=== PATIENT | female | born 1985 | race Caucasian/White ===

== ENCOUNTER 2017-05-18 19:44 | Inpatient (IN) | payer MEDICAID, SELFPAY ==
[2017-05-18 19:45] VITALS: BP 124/94; PULSE 121; RESP 18; TEMP 37.1; O2SAT 98; BMI 28.4
--- NOTE | 2017-05-18 20:49 | NURSING ---
PT WILL BE ADMITTED UNDER THE [facility] FOR DETOX
--- NOTE | 2017-05-18 20:51 | ED.DCSUM_ITS ---
- ER Visit Summary Date of Service: 05/18/17 Chief Complaint: History of alcoholism requesting detox History of Present Illness: The patient is a 32 F 3 of alcohol abuse and prior heroin abuse. States she was detoxed in [place] a year ago and has been clean from heroin since that time. She drinks normally about 1/5 of vodka a day. And wants to get clean. She denies any melena. She denies any fever. Physical Examination: Well-appearing young female. Vital signs are stable she is tachycardic heart rate about 121. H EENT exam unremarkable. Neck nontender no lymphadenopathy. Lungs clear to auscultation bilaterally. Heart tachycardic no murmur rate about 120. Abdomen is soft nontender. Nondistended normal bowel sounds no peritoneal signs. No organomegaly or masses. She is moving all 4 extremities. Neurovascular intact. Back nontender. Neurologically she is awake and alert without focal motor deficits. Test Results: [] Emergency Department Course and Treatment: Patient requesting detox. Screening labs be obtained. I have the hospitalist on page for admission. Treatment Plan: [] Disposition: Admission for detox Impression: History of alcoholism requesting detox Prior history of heroin abuse This note was generated with Android [employer] dictation software. It may contain incorrect words, spelling, and punctuation that were not noted in review of the chart prior to signing ED Disposition - Plan for ED Patient: Chief Complaint: Subst Abuse Referrals: NOT,DEFINED [Primary Care Provider] -
--- NOTE | 2017-05-18 21:11 | PCM.HP.STD ---
Problem List (1) Alcohol abuse Status: Acute (2) Opiate addiction Status: Chronic History of Present Illness Date of Admission: 05/18/17 Chief Complaint: wants to be sober The patient is a 32 year old female patient with chronic alcohol addiction presents to the ER to get sober from alcohol. She last drank 4 hours ago and says she continues to drink to avoid getting the shakes. She admits to heavy drinking for the past nine months. She is also on 1 mg Suboxone from her primary doctor. She is agitated but says she wants to be free from her alcohol addiction. No chest pain or shortness of breath. Past Medical History Past Medical History (Chronic Problems): Chronic Problems Opiate addiction (Chronic) Allergies amoxicillin Allergy (Verified 05/18/17 19:48) Rash Home Medications: Ambulatory Orders Medication Instructions Recorded Buprenorphine HCl/Naloxone HCl 1 each SL QODAY 05/18/17 [Buprenorphin-Naloxon 8-2 mg Sl] Clonidine HCl 0.2 mg PO Q8 05/18/17 Famotidine 20 mg PO BID 05/18/17 Smoking Status: Current every day smoker - *Family History Maternal History Items: No pertinent history Review of Systems Constitutional: Denies: Chills, Fever, Weight Change HEENT: Denies: Head Aches, Sinus Congestion, Sinus Drainage Cardiovascular: Denies: Chest Pain, Palpitations Respiratory: Denies: Cough, Shortness of breath at rest, Sputum production Gastrointestinal: Denies: Abdominal Pain, Nausea, Vomiting Genitourinary: Denies: Dysuria Musculoskeletal: Denies: Joint Pain, Joint Tenderness Skin: Denies: Rash, Wounds Neurological: Denies: Numbness, Tingling, Focal weakness Psychiatric: Reports: Anxiety. Denies: Depression, Homicidal Ideations, Suicidal Ideations Hematologic/ Lymphatic: Denies: Easy Bruising, Easy Bleeding VTE Information - Inpt Only VTE Present on Admission: No VTE Mechan Device Prophylaxis: None VTE Pharm Prophylaxis ordered?: No Patient Problems: Active and Suspected Problems Alcohol abuse (Acute) - Physical Exam General: Alert, Oriented x3, Cooperative HEENT: Atraumatic, Normocephalic Neck: Supple Lungs: Clear to auscultation, Normal air movement Cardiovascular: Regular rate, No murmurs Abdomen: Bowel Sounds Present, Soft, Non Tender Extremities: No edema, Capillary Refill Less than 3 Seconds Skin: No rashes, No breakdown Musculoskeletal: No Tenderness to Palpation of Joints or Extremities Neurological: Neuro grossly intact Psych/Mental Status: Appropriate, Anxious Vital Signs Temp Pulse Resp BP Pulse Ox 98.7 F 121 H 18 124/94 H 98 05/18/17 19:45 05/18/17 19:45 05/18/17 19:45 05/18/17 19:45 05/18/17 19:45 Weight: 160 lb 11.472 oz Body Mass Index (BMI) 28.4 Assessment/Plan Active and Suspected Problems Alcohol abuse (Acute) Chronic conditions - history of opiate addiction Plan - enter [facility] program - CIWA protocol - labs pending at admission - consult [facility] - continue routine home medications Code Visit Inpatient E&M: 96745 Init Hosp L3
[2017-05-18 21:19] LABS: Absolute Lymphocyte Count 3.43 X10^3/ul (0.83-4.51); Absolute Neutrophil Count 3.1 X10^3/uL (2.0-7.7); Basophil# 0.02 X10^3/uL; Basophil% 0.3 % (0-1); Eosinophil# 0.06 X10^3/uL; Eosinophils% 0.8 % (0-5); Hemoglobin 15.4 g/dl (12.0-15.0); Lymphocyte # 3.43 X10^3/ul (4.0); Lymphocyte % 46.5 % (19-41); Mean Corp Hgb Conc 33.5 g/gl (32-36); Mean Corpuscular Hgb 33.4 pg (27.0-32.0); Mean Corpuscular Volume 99.8 fL (81-99); Mean Platelet Vol. 8.5 fl (6.2-12.0); Monocyte# 0.68 X10^3/uL; Monocyte% 9.2 % (0-10); Neutrophil # 3.14 X10^3/uL (2.7-7.7); Neutrophil % 42.7 % (47-70); POSITIVE COUNT NO; POSITIVE DIFFERENTIAL NO; POSITIVE MORPHOLOGY NO; Platelet Count 274 K/mm3 (150-450); RBC Distribution Width CV 13.6 % (11.6-14.6); RBC Distribution Width SD 49.6 fl (35.1-43.9); Red Blood Count 4.61 M/mm3 (4.2-5.4); White Blood Count 7.4 K/mm3 (4.4-11.0)
[2017-05-18 21:23] VITALS: BP 119/84; PULSE 109; RESP 20; O2SAT 97
[2017-05-18 21:38] LABS: AST(SGOT) 162 U/L (15-37); Alanine Aminotransfer ALT/SGPT 138 U/L (13-56); Albumin, Serum 3.9 g/dL (3.2-5.0); Alkaline Phosphatase 103 U/L (45-117); Anion Gap 6 (5-15); BUN 5 mg/dL (7-18); BUN/Creat Ratio 7.7 RATIO (10-20); Bilirubin, Direct 0.12 mg/dL (0.00-0.30); Calcium,Total 8.5 mg/dL (8.5-10.1); Chloride 109 mmol/L (98-107); Creatinine, Serum 0.65 mg/dL (0.55-1.02); EST Glomerular Filtration Rate 113 mL/min (>60); Est Glom Filt Rate - Afr Amer 137 mL/min (>60); Estimated Creatinine Clearance 102.78 ml/min; Glucose 88 mg/dL (74-106); Potassium 3.7 mmol/L (3.5-5.1); Protein, Total 7.9 g/dL (6.4-8.2); Sodium Level 144 mmol/L (136-145)
[2017-05-18 21:53] VITALS: BMI 27.3
[2017-05-18 22:07] VITALS: BP 120/86; PULSE 66; RESP 18; TEMP 36.2; O2SAT 95
[2017-05-18] MEDS: cloNIDine HCl 0.2 MG Tablet PO (22:41)
[2017-05-18] MEDS: Famotidine 20 MG Tablet PO (22:42)
[2017-05-19] VITALS (10 sets, daily range): BP systolic 104–122; BP diastolic 61–85; PULSE 70–110; RESP 16–18; TEMP 36.6–37.3; O2SAT 97–100
[2017-05-19] MEDS: LORazepam 1 MG Tablet 2 MG PO (05:56)
[2017-05-19] MEDS: cloNIDine HCl 0.2 MG Tablet PO ×3 (05:56→22:06)
[2017-05-19] MEDS: Thiamine Hydrochloride 100 MG Tablet PO ×2 (07:53→17:43)
[2017-05-19] MEDS: Folic Acid 1 MG Tablet PO (07:53)
[2017-05-19 08:29] LABS: Amphetamine Urine VISTA NEGATIVE (<1000 ng/mL); Barbiturate Urine VISTA NEGATIVE (< 200 ng/mL); Benzodiazepine Urine VISTA NEGATIVE (< 200 ng/mL); Cocaine Urine VISTA NEGATIVE (< 300 ng/mL); Ecstacy Urine VISTA NEGATIVE (< 500 ng/mL); Methadone Urine VISTA NEGATIVE (< 300 ng/mL); PCP Urine VISTA NEGATIVE (< 25 ng/mL); THC Urine VISTA NEGATIVE (< 50 ng/mL); Vista UDS pH Range 6
--- NOTE | 2017-05-19 08:53 | CASEMGMT ---
Social Work Note Consult from physician for [facility] to follow. Placed call to Gisselle with [facility] who confirms that she will be meeting with the pt this date. Will notify SW if there are any additional needs. Will continue to follow and assist as needed. Plan: [facility] Elsa Ceja, CERTIFIED TOWER CLIMBER, BUN MACHINE OPERATOR
[2017-05-19] MEDS: Enoxaparin 40 MG/0.4 ML Syringe SC (09:55)
[2017-05-19] MEDS: Famotidine 20 MG Tablet PO ×2 (09:55→22:06)
--- NOTE | 2017-05-19 12:58 | PN_ITS ---
Patient Problems: Active and Suspected Problems Alcohol abuse (Acute) Subjective: CC: alcohol withdrawal Patient presented asking to be detoxed from alcohol. she Currently has symptom complex of alcohol withdrawal. Vitals/I&O's: Vital Signs Temp Pulse Resp BP Pulse Ox 99.2 F H 110 H 18 122/85 H 100 05/19/17 10:00 05/19/17 10:00 05/19/17 10:00 05/19/17 10:00 05/19/17 07:44 Oxygen Delivery Method Room Air Weight: 70 kg Body Mass Index (BMI) 27.3 General: Alert, Oriented x3 Oral: Moist Mucosa Neck: Supple Lungs: Clear to auscultation Cardiovascular: Regular rate, Normal S1, Normal S2 Abdomen: Bowel Sounds Present, Soft, Non Tender Neurological: Cranial nerves II-XII grossly intact, Facial Droop Laboratory Results 05/19/17 07:50: Urine Opiates Screen NEGATIVE, Urine Methadone Screen NEGATIVE, Ur Barbiturates Screen NEGATIVE, Ur Phencyclidine Scrn NEGATIVE, Ur Amphetamines Screen NEGATIVE, U Methamphetamin-MDMA NEGATIVE, U Benzodiazepines Scrn NEGATIVE, Urine Cocaine Screen NEGATIVE, U Cannabinoids Screen NEGATIVE, Ur Drug Screen Comment Current Medications Buprenorphine HCl (Buprenorphn-Naloxn 2-0.5 Mg Sl) 0.5 each SL DAILY PRN PRN Clonidine (Catapres) 0.2 mg PO Q8 [facility] Last Admin: 05/19/17 05:56 Dose: 0.2 mg Enoxaparin Sodium (Lovenox) 40 mg SC DAILY@1000 [facility] Last Admin: 05/19/17 09:55 Dose: 40 mg Famotidine (Pepcid) 20 mg PO BID [facility] Last Admin: 05/19/17 09:55 Dose: 20 mg Folic Acid (Folic Acid) 1 mg PO DAILY@0800 [facility] Stop: 05/21/17 08:01 Last Admin: 05/19/17 07:53 Dose: 1 mg Lorazepam (Ativan) 2 mg PO Q2H PRN PRN; Protocol PRN Reason: CIWA score > 8 but <15 Last Admin: 05/19/17 05:56 Dose: 2 mg Lorazepam (Ativan) 2 mg IV Q2H PRN PRN; Protocol PRN Reason: CIWA score > 8 but <15 Lorazepam (Ativan) 2 mg PO UD PRN; Protocol PRN Reason: CIWA score >/=15. Lorazepam (Ativan) 2 mg IV UD PRN; Protocol PRN Reason: CIWA score >/=15. Magnesium Hydroxide (Milk Of Magnesia) 30 ml PO DAILY PRN PRN PRN Reason: Constipation Thiamine HCl (Vitamin B1) 100 mg PO BIDCM [facility] Stop: 05/21/17 17:01 Last Admin: 05/19/17 07:53 Dose: 100 mg Assessment/Plan Active and Suspected Problems Alcohol abuse (Acute) 1. Acute alcohol withdrawal; the patient will be placed on the [facility] medical stabilization protocol. We will continue to monitor her closely. 2. Alcohol use disorder; the patient is recommended to follow-up for alcohol alcohol rehabilitation program after discharge. 3. history of opiate use disorder; he is recommended to stay away from illicit drugs. 4. DVT Prophylaxis with Lovenox. Code Visit Inpatient E&M: 52312 [facility] Hosp L3
--- NOTE | 2017-05-19 16:30 | CHAPLAIN ---
Type of Pastoral Visit _x__ Initial Visit ___ Follow-up Visit ___ On-call Visit ___ General Patient Visit ___ Spiritual Assessment ___ Family Conference ___ Bereavement ___ Rapid Response ___ Code Blue ___ Other (describe below) Pastoral Care Referral From _x__ Patient ___ Family ___ Nurse ___ Physician ___ Classroom Coordinator ___ Ct Manager ___ Other (describe below) Sacrament/Intervention _x__ Active listening ___ Anointing ___ Sabianism ___ Bereavement ___ Communion ___ Betty exploration ___ _x__ Life review _x__ Prayer ___ Reconciliation ___ Sacrament of Sick _x__ Supportive presence ___ Wedding ___ Other (describe below) Pastoral Comments patient discusses the policy of not leaving the hospital; pt says that she wants to have her 6 month old baby see her now but doesn't want to go to lobby to do it; pt says she needs fresh air and a smoke; we talk about what she can do and how she can focus on the residential; offer to get her reading material and coloring pages; pt agrees that this would be a good idea; pt accepts a prayer; pt has had no mandaeism connection in last 25 years; returned to room with coloring pages and reading
--- NOTE | 2017-05-19 19:45 | NURSING ---
Pt refusing to wear tele. Will make MD aware.
--- NOTE | 2017-05-19 19:47 | NURSING ---
pt refused tele primary rn aware & notified
[2017-05-19] MEDS: QUEtiapine 25 MG Tablet PO (22:06)
[2017-05-20 04:57] VITALS: BP 104/66; PULSE 46; RESP 16; TEMP 36.5; O2SAT 100
[2017-05-20 05:00] VITALS: BP 104/66; PULSE 46; RESP 16; TEMP 36.5
[2017-05-20] MEDS: cloNIDine HCl 0.2 MG Tablet PO (05:19)
[2017-05-20 05:20] VITALS: PULSE 72
[2017-05-20] MEDS: Folic Acid 1 MG Tablet PO (08:56)
[2017-05-20] MEDS: Thiamine Hydrochloride 100 MG Tablet PO (08:57)
--- NOTE | 2017-05-20 09:32 | PCM.PN.HOSP ---
Patient Problems: Active and Suspected Problems Alcohol abuse (Acute) Subjective: CC: Follow-up on alcohol withdrawal She reports improved symptoms with the [facility] medical stabilization protocol. No acute events reported overnight. Vitals/I&O's: Vital Signs Temp Pulse Resp BP Pulse Ox 97.7 F L 72 16 104/66 100 05/20/17 05:00 05/20/17 05:20 05/20/17 05:00 05/20/17 05:00 05/20/17 04:57 Oxygen Delivery Method Room Air Weight: 70 kg Body Mass Index (BMI) 27.3 Intake and Output for Last 24 Hours 05/18/17 05/19/17 05/20/17 23:59 23:59 23:59 Intake Total 860 / 860 1000 / 1000 Balance 860 / 860 1000 / 1000 General: Alert, Oriented x3 HEENT: Atraumatic Neck: Supple, No JVD, Negative Carotid Bruits Lungs: Clear to auscultation, No wheeze Cardiovascular: Normal S1, Normal S2 Abdomen: Bowel Sounds Present Extremities: No clubbing, No edema Neurological: Cranial nerves II-XII grossly intact, Slurred Speech Current Medications Buprenorphine HCl (Buprenorphn-Naloxn 2-0.5 Mg Sl) 0.5 each SL DAILY PRN PRN Clonidine (Catapres) 0.2 mg PO Q8 [facility] Last Admin: 05/20/17 05:19 Dose: 0.2 mg Dicyclomine HCl (Bentyl) 20 mg PO Q6H PRN PRN PRN Reason: abdominal discomfort Enoxaparin Sodium (Lovenox) 40 mg SC DAILY@1000 [facility] Last Admin: 05/19/17 09:55 Dose: 40 mg Famotidine (Pepcid) 20 mg PO BID [facility] Last Admin: 05/19/17 22:06 Dose: 20 mg Folic Acid (Folic Acid) 1 mg PO DAILY@0800 [facility] Stop: 05/21/17 08:01 Last Admin: 05/20/17 08:56 Dose: 1 mg Hydroxyzine Pamoate (Vistaril) 50 mg PO Q6H PRN PRN PRN Reason: Mild Anxiety (score 1/3) Last Admin: 05/20/17 05:18 Dose: 50 mg Lorazepam (Ativan) 2 mg PO Q2H PRN PRN; Protocol PRN Reason: CIWA score > 8 but <15 Last Admin: 05/19/17 05:56 Dose: 2 mg Lorazepam (Ativan) 2 mg IV Q2H PRN PRN; Protocol PRN Reason: CIWA score > 8 but <15 Lorazepam (Ativan) 2 mg PO UD PRN; Protocol PRN Reason: CIWA score >/=15. Lorazepam (Ativan) 2 mg IV UD PRN; Protocol PRN Reason: CIWA score >/=15. Magnesium Hydroxide (Milk Of Magnesia) 30 ml PO DAILY PRN PRN PRN Reason: Constipation Methocarbamol (Methocarbamol) 750 mg PO Q6H PRN PRN PRN Reason: Muscle Aches Pramipexole Dihydrochloride (Mirapex) 0.25 mg PO Q12H PRN PRN PRN Reason: Restless legs Quetiapine Fumarate (Seroquel) 25 mg PO Q6H PRN PRN PRN Reason: Moderate Anxiety (score 2/3) Last Admin: 05/19/17 22:06 Dose: 25 mg Thiamine HCl (Vitamin B1) 100 mg PO BIDCM [facility] Stop: 05/21/17 17:01 Last Admin: 05/20/17 08:57 Dose: 100 mg Assessment/Plan Active and Suspected Problems Alcohol abuse (Acute) 1. Acute alcohol withdrawal; we will continue on the [facility] medical stabilization protocol. We will continue to monitor her closely. 2. Alcohol use disorder; the patient is recommended to follow-up for alcohol alcohol rehabilitation program after discharge. 3. history of opiate use disorder; he is recommended to stay away from illicit drugs. 4. DVT Prophylaxis with Lovenox. Code Visit Inpatient E&M: 77909 Subs Hosp L2
[2017-05-20 10:00] VITALS: BP 108/71; PULSE 60; RESP 18; TEMP 36.7
[2017-05-20] MEDS: LORazepam 1 MG Tablet 2 MG PO (10:21)
[2017-05-20] MEDS: Enoxaparin 40 MG/0.4 ML Syringe SC (10:22)
[2017-05-20] MEDS: Famotidine 20 MG Tablet PO (10:22)
--- NOTE | 2017-05-20 13:39 | PCM.DC.SUM ---
Discharge Date and Diagnosis - Problem List Patient Problems: Active and Suspected Problems Alcohol abuse (Acute) Date of Admission: 05/18/17 Date of Discharge: 05/20/17 - Primary Discharge Diagnosis Active and Suspected Problems Alcohol abuse (Acute) - Secondary Discharge Diagnosis Chronic Problems Opiate addiction (Chronic) Hospital Course and Treatment Summary of Care Provided: This is a 32 year old female patient with chronic alcohol addiction presents to the ED to get detoxed from alcohol. She last drank 4 hours ago emergency room . Was admitted to the hospital and placed on the medical stabilization protocol for alcohol withdrawal. She later decided AGAINST MEDICAL ADVICE and left the hospital. Discharge Diet: No Restrictions Home Medications: Medications to take at Discharge Buprenorphine HCl/Naloxone HCl [Buprenorphin-Naloxon 8-2 mg Sl] 0.5 mg SL DAILY PRN PRN 05/18/17 Clonidine HCl 0.2 mg PO Q8 05/18/17 Famotidine 20 mg PO BID 05/18/17 Primary Care Physician: NOT,DEFINED [NON-STAFF] - Disposition: Home Meaningful Use Info Meaningful Use Diagnoses (Choose all that apply): None applicable Code Visit Inpatient E&M: 17564 Disch Hosp
== END 2017-05-20 14:00 | disposition left against medical advice (07) | DRG 433 ==
LOC: ED 20:59 → MS2 21:25
PROVIDERS: Admitting Provider Family Medicine; Emergency Provider Emergency Medicine; Visit Provider Internal Medicine
DX: F10.239 Alcohol dependence with withdrawal, unspecified (principal); F11.11 Opioid abuse, in remission; F17.200 Nicotine dependence, unspecified, uncomplicated
CPT/HCPCS: 80048; 80076; 80307; 80320; 85025; 97802; 99283; G0480

== ENCOUNTER 2017-06-27 13:27 | Emergency (ER) | payer MEDICAID, SELFPAY ==
[2017-06-27 13:29] VITALS: BP 142/98; PULSE 120; RESP 18; TEMP 36.7; O2SAT 98; BMI 26.4
--- NOTE | 2017-06-27 14:10 | ED.DCSUM_ITS ---
- ER Visit Summary Date of Service: 06/27/17 Chief Complaint: [] Anxiety requesting alcohol detox History of Present Illness: The patient is a 32 F [] history of anxiety, alcohol abuse, currently on Suboxone for heroin nasal inhalation abuse no history of IV drug abuse she indicates she drinks about 1/5 of whiskey a day she has a 2-month-old child with and her she is with no complication from the she basically indicates she was detoxed about 2 months ago at [facility] she remained sober for 2 days, she is currently seeing a counselor for Suboxone therapy was also managing her anxiety with klonidine and then that was stopped, she still on the Suboxone, she indicates she believes she drinks because she becomes very anxious she has not seen a specialist specialist psychiatrist counselor for the anxiety or alcohol abuse as an outpatient Alcohol and tox was about 2 hours ago she is not in withdrawal she has no complaints of head neck chest or abdominal pain no irritability palpitations headache her CIWA screening score is negative except for her chronic anxiety. She is eating and drinking without difficulty there is no reported suicidal ideation Physical Examination: [] No distress she admits to being anxious her HEENT exams unremarkable head neck unremarkable nose and throat are normal neck supple lungs clear abdomen soft nontender upper lower extremities unremarkable neurologically awake alert moving all 4 no tremor normal mental status no clouding of memory or judgment, no signs of psychomotor agitation or withdrawal Test Results: [] Emergency Department Course and Treatment: [] In all the above to her and her we did do the CIWA screening score and again she was negative for all except for the anxiety I explained her that she does not meet criteria for admission based on the current treatment protocol here at the hospital, did not follow-up for outpatient detox with 180 or the counseling center I provided her with those phone numbers asked her to call them for continued options related to her detox to call the counseling center at the hospital on Thursday morning and return for change in symptoms Treatment Plan: [] Disposition: [] Home stable Impression: [] History of alcohol abuse, history of narcotic addiction heroin currently on Suboxone history of anxiety This note was generated with [employer] software. It may contain incorrect words, spelling, and punctuation that were not noted in review of the chart prior to signing ED Disposition - Plan for ED Patient: Chief Complaint: Subst Abuse Referrals: Care Physician,No Primary [Primary Care Provider] -
--- NOTE | 2017-06-27 14:10 | ED.DEP ---
ED Disposition - Plan for ED Patient: Chief Complaint: Subst Abuse Instructions: ED Drug Abuse General, ED Alcohol Intoxication Referrals: Care Physician,No Primary [Primary Care Provider] -
== END 2017-06-27 14:40 | disposition home or self-care (01) ==
PROVIDERS: Emergency Provider Emergency Medicine
DX: F10.10 Alcohol abuse, uncomplicated (principal); Y90.9 Presence of alcohol in blood, level not specified; F41.9 Anxiety disorder, unspecified; F11.21 Opioid dependence, in remission
CPT/HCPCS: 99282

== ENCOUNTER 2017-12-18 11:56 | Inpatient (IN) | payer MEDICAID, SELFPAY ==
[2017-12-18] VITALS (7 sets, daily range): BP systolic 108–125; BP diastolic 74–80; PULSE 81–101; RESP 14–16; TEMP 36.7–37; O2SAT 98; BMI 28.6
--- NOTE | 2017-12-18 12:00 | HP.PCM_ITS ---
Problem List (1) Alcohol withdrawal Status: Acute Qualifiers: Complication of substance-induced condition: with unspecified complication Qualified Code(s): F10.239 - Alcohol dependence with withdrawal, unspecified (2) History of heroin abuse Status: Chronic (3) Tobacco use Status: Chronic (4) Anxiety and depression Status: Chronic History of Present Illness Date of Admission: 12/18/17 Chief Complaint: Acute EtOH withdrawal The patient is a 32 y/o F w/ PMHx: Tobacco Use, History of Heroin Abuse clean x 2 years, previously on Suboxone therapy while but off since her child 3 months old without issue she notes, Untreated anxiety and depression, EtOH Abuse with daily 1.5 750 ml vodka bottle daily who presents to the [facility] per [facility] w/ noted acute EtOH withdrawal, onset starting this afternoon following last EtOH intake ~ 9:30 am with onset of nausea, tremors, agitation, tactile disturbances. She notes that she has been decreasing her intake recently and notes possibly having seizure ~ 2 days prior. Patient interested in attaining sober status. She was in rehab prior and had left AMA during that prior admission. She has a nearing 1 year old daughter who is currently with her grandparents who she notes are sober x 7 years each and is very eager to attain sober status herself. She does not have a mentor/AA sponsor. She admits to anxiety as the reason for her EtOH intake. Past Medical History Past Medical History (Chronic Problems): Chronic Problems Opiate addiction (Chronic) History of heroin abuse (Chronic) Tobacco use (Chronic) Anxiety and depression (Chronic) Allergies amoxicillin Allergy (Verified 06/27/17 13:28) Rash Home Medications: Ambulatory Orders Medication Instructions Recorded Clonidine HCl [Catapres] 0.2 mg PO TID 12/18/17 Surgical History: tonsillectomy Psychiatric History: Anxiety, Depression WIG SALES CONSULTANT History: No pertinent WIG SALES CONSULTANT history Lives: Alone - Lives with her 1 year old daughter. Does have father of child who is in care home parents assistance who are both clean/sober status x 7 years., Friends - 10 cigarette/day. Smoking Status: Current every day smoker Tobacco Use: Cigarettes Alcohol: Heavy - 1.5 750 ml vodka per day. Drugs: - - Clean status x 2 years, prior heroin usage. - *Family History Maternal History Items: - - Notes was mother was an EtOH, . Paternal History Items: No pertinent history Review of Systems Constitutional: Reports: Anorexia, Malaise, Weakness, Fatigue. Denies: Chills, Fever, Weight Change HEENT: Denies: Head Aches, Sinus Congestion, Sinus Drainage Cardiovascular: Denies: Chest Pain, Palpitations Respiratory: Denies: Cough, Shortness of breath at rest, Sputum production Gastrointestinal: Reports: Nausea. Denies: Abdominal Pain, Vomiting Genitourinary: Denies: Dysuria Musculoskeletal: Denies: Joint Pain, Joint Tenderness Skin: Denies: Rash, Wounds Neurological: Reports: Tremor, Seizures. Denies: Focal weakness, Numbness, Tingling Psychiatric: Reports: Anxiety, Depression. Denies: Homicidal Ideations, Suicidal Ideations Hematologic/ Lymphatic: Denies: Easy Bruising, Easy Bleeding VTE Information - Inpt Only VTE Present on Admission: No VTE Mechan Device Prophylaxis: SCD's VTE Pharm Prophylaxis ordered?: Yes Patient Problems: Active and Suspected Problems Alcohol withdrawal (Acute) Subjective: Seated upright in the bed, fatigued appearance, notes symptoms improved since initial dose librium. Objective: Physical Examination: General: awake, alert, oriented x 3 and cooperative, seated upright in bed, fatigued appearance, tremors improved w/ librium. Skin: normal color, turgor, no icterus, cyanosis. HEENT: AT/NC, EOMI, PERRLA, moderately dry MM, no carotid bruits or JVD noted. Lungs: CTA bilaterally, moderate effort, mild decrease BL bases, no rales, ronchi or wheezing. Heart: Regular rate and rhythm; no gallop, rub audible. Abdomen: soft, NTTP, ND, normal BS, no HSM. Extremities: no cyanosis, clubbing, or edema. Neurological: patient awake, alert, oriented x 3; cognitive function intact; pupils equally reactive to light and accomodation; cranial nerves II-XII grossly normal, moving all 4 extremities, no focal deficits, strength moderately globally decreased secondary to acute presentation, tremors improved. Psychiatric: affect appears fatigued, mildly flat, no acute evidence of depressive or anxiety feelings but does state underlying history and interest in treatment. Assessment/Plan All Active Problems Alcohol abuse (Acute) Alcohol withdrawal (Acute) The patient is a 32 y/o F w/ PMHx: Tobacco Use, History of Heroin Abuse clean x 2 years, previously on Suboxone therapy while but off since her child 3 months old without issue she notes, Untreated anxiety and depression, EtOH Abuse with daily 1.5 750 ml vodka bottle daily who presents to the [facility] per [facility] w/ noted acute EtOH withdrawal. (1) Acute EtOH Withdrawal w/ Possible DT: Will admit to MS, seizure precautions given possible DT history w/ recent decreased EtOH, obtain routine labs including CBC, CMP, urine for drug screen, serum lipase, testing, initiate and continue on [facility] service protocol with taper course of librium, as needed Seroquel, Catapres, Bentyl, Vistaril, IV fluids, IV antiemetics, Tylenol as needed for pain. Once patient clinically improved and completion of taper nearing will plan [facility] assistance for transition to next level of rehabilitation care. Mag, phos pending. Maintain on CIWA protocol. (2) Anxiety and Depression, Untreated: Reviewed options with patient and given her interest and large component for her EtOH abuse will start low dose sertraline with planned taper after 1 week and further alterations with PCP pending response. Discussed timeline of response with patient. She understands possible side effects but still prefers to start in her current setting. Discussed with CM/SW and requested they obtain information for PCPs in her area to assist in successful outcome. (3) History of Heroin Abuse: Clean x 2 years, notes recent HIV and hepatitis testing w/ of child, negative. Encouraged continued clean status. Previously on suboxone therapy, off now since child ~ 3 months old. (4) Tobacco Abuse: Encouraged cessation, inpatient consultation per RT, NR if desired. (5) DVT Prophylaxis: SCDs, lovenox. Code Visit Inpatient E&M: 86914 Init Hosp L3
--- NOTE | 2017-12-18 12:41 | NURSING ---
pt refused ensure-- clinical data coordinator present
[2017-12-18 12:44] LABS: Absolute Lymphocyte Count 2.33 X10^3/ul (0.83-4.51); Absolute Neutrophil Count 4.9 X10^3/uL (2.0-7.7); Basophil# 0.02 X10^3/uL; Basophil% 0.3 % (0-1); Eosinophil# 0.03 X10^3/uL; Eosinophils% 0.4 % (0-5); Hematocrit 43.6 % (37-47); Hemoglobin 15.4 g/dl (12.0-15.0); Lymphocyte # 2.33 X10^3/ul (4.0); Lymphocyte % 29.8 % (19-41); Mean Corp Hgb Conc 35.3 g/gl (32-36); Mean Corpuscular Hgb 32.7 pg (27.0-32.0); Mean Corpuscular Volume 92.6 fL (81-99); Mean Platelet Vol. 8.3 fl (6.2-12.0); Monocyte# 0.49 X10^3/uL; Monocyte% 6.3 % (0-10); Neutrophil # 4.92 X10^3/uL (2.7-7.7); Neutrophil % 62.9 % (47-70); Platelet Count 312 K/mm3 (150-450); RBC Distribution Width CV 13.8 % (11.6-14.6); RBC Distribution Width SD 45.8 fl (35.1-43.9); Red Blood Count 4.71 M/mm3 (4.2-5.4); White Blood Count 7.8 K/mm3 (4.4-11.0)
[2017-12-18 12:45] LABS: POSITIVE COUNT NO; POSITIVE DIFFERENTIAL NO; POSITIVE MORPHOLOGY NO
[2017-12-18] MEDS: chlordiazePOXIDE 25 MG Capsule PO ×2 (12:56→18:24)
[2017-12-18 12:59] LABS: Prothrombin Time (Protime)PT. 13.5 SECONDS (11.7-14.9)
[2017-12-18 13:07] LABS: Phosphorus 2.6 mg/dL (2.5-4.9)
[2017-12-18 13:12] LABS: Pregnancy, Serum, hCG Quali. NEGATIVE Negative (0-9 Nonpreg)
[2017-12-18 13:14] LABS: ALB/GLOB Ratio 1.2 RATIO (0.9-2.4); AST(SGOT) 37 U/L (15-37); Alanine Aminotransfer ALT/SGPT 32 U/L (13-56); Albumin, Serum 4.1 g/dL (3.2-5.0); Alkaline Phosphatase 81 U/L (45-117); Anion Gap 12 (5-15); BUN 7 mg/dL (7-18); BUN/Creat Ratio 9.8 RATIO (10-20); Calcium,Total 8.3 mg/dL (8.5-10.1); Chloride 106 mmol/L (98-107); Creatinine, Serum 0.71 mg/dL (0.55-1.02); EST Glomerular Filtration Rate 101 mL/min (>60); Est Glom Filt Rate - Afr Amer 122 mL/min (>60); Globulin 3.4 g/dL (2.2-4.2); Glucose 72 mg/dL (74-106); Lipase 167 U/L (73-393); Magnesium 2.2 mg/dL (1.6-2.6); Potassium 3.6 mmol/L (3.5-5.1); Protein, Total 7.5 g/dL (6.4-8.2); Sodium Level 141 mmol/L (136-145)
[2017-12-18] MEDS: Lactated Ringers 1,000 ML 125 ML IV (14:44)
--- NOTE | 2017-12-18 15:20 | NURSING ---
suction tubing placed at bedside. seizure precautions-pads placed on siderails upon admission. This nurse went in the room and the pads were laying on the chair. Pt stated she removed them because the pads were blocking her fan (the fan was from home). I told the pt she could not use a fan from home and asked the WASHING MACHINE STRIPER to get her a fan. This nurse put the seizure pads back on the siderails and reinforced the reason for the pads and that they would need to stay on the bed.
--- NOTE | 2017-12-18 15:39 | CASEMGMT ---
RN CM NOTE: Per Dr López request, pt given list of local PCP[facility]. List obtained on-line from [facility] providers. Julisa CONNERN RN CM
[2017-12-18] MEDS: Sertraline 50 MG Tablet PO (16:32)
[2017-12-18 18:01] LABS: Amphetamine Urine VISTA NEGATIVE (<1000 ng/mL); Barbiturate Urine VISTA NEGATIVE (< 200 ng/mL); Benzodiazepine Urine VISTA POSITIVE (< 200 ng/mL); Cocaine Urine VISTA NEGATIVE (< 300 ng/mL); Ecstacy Urine VISTA NEGATIVE (< 500 ng/mL); Methadone Urine VISTA NEGATIVE (< 300 ng/mL); PCP Urine VISTA NEGATIVE (< 25 ng/mL); THC Urine VISTA NEGATIVE (< 50 ng/mL); Vista UDS pH Range 6
[2017-12-18] MEDS: traZODone 50 MG Tablet PO (21:43)
[2017-12-18] MEDS: Famotidine 20 MG Tablet PO (21:43)
[2017-12-18] MEDS: Methocarbamol 750 MG Tablet PO (21:43)
[2017-12-18] MEDS: QUEtiapine 25 MG Tablet PO (21:43)
[2017-12-19] VITALS (10 sets, daily range): BP systolic 92–119; BP diastolic 53–80; PULSE 68–89; RESP 14–18; TEMP 36.6–37.2; O2SAT 98–100
[2017-12-19] MEDS: chlordiazePOXIDE 25 MG Capsule PO ×4 (00:54→22:36)
--- NOTE | 2017-12-19 06:56 | PCM.PN.HOSP ---
Patient Problems: Active and Suspected Problems Alcohol withdrawal (Acute) Subjective: Patient with no acute events overnight per self and per nursing report. Patient only complaint is notable sweating however she does have sweat on currently but states she if she removes this she then has some chills. She states that withdrawal symptoms have remarkably improved and she has had no further tremors. Discussed again patient status post initiation sertraline day prior with planned continued usage as well as encouraged PCP follow-up outpatient on discharge to continue trending upward as needed to achieve symptom control especially given this is patient's reported etiology for alcohol abuse. Patient denies fevers, chills, nausea, emesis, abdominal pain, chest pain or dyspnea. Objective: Physical Examination: General: awake, alert, oriented x 3 and cooperative, seated upright in bed, fatigued appearance, tremors resolved. Skin: normal color, turgor, no icterus, cyanosis. HEENT: AT/NC, EOMI, PERRLA, improved MMM. Lungs: CTA bilaterally, moderate effort, mild decrease BL bases, no rales, ronchi or wheezing. Heart: Regular rate and rhythm; no gallop, rub audible. Abdomen: soft, NTTP, ND, normal BS. Extremities: no cyanosis, clubbing, or edema. Neurological: patient awake, alert, oriented x 3; cognitive function intact; pupils equally reactive to light and accomodation; cranial nerves II-XII grossly normal, moving all 4 extremities, no focal deficits, strength improved, mildly globally decreased, tremors resolved. Psychiatric: affect appears fatigued, improved however from day prior,no acute evidence of depressive or anxiety feelings. Vitals/I&O's: Vital Signs Temp Pulse Resp BP Pulse Ox 98 F 72 14 92/53 L 98 12/19/17 05:35 12/19/17 05:35 12/19/17 05:35 12/19/17 05:35 12/18/17 12:12 Oxygen Delivery Method Room Air Weight: 161 lb 9.581 oz Body Mass Index (BMI) 28.6 Intake and Output for Last 24 Hours 12/17/17 12/18/17 12/19/17 23:59 23:59 23:59 Intake Total 1420 / 1420 Output Total 200 / 200 Balance 1220 / 1220 Laboratory Results 12/18/17 12:25: Phosphorus 2.6 12/18/17 12:25: WBC 7.8, RBC 4.71, Hgb 15.4 H, Hct 43.6, MCV 92.6, MCH 32.7 H, MCHC 35.3, RDW 13.8, RDW Differential 45.8 H, Plt Count 312, MPV 8.3, Immature Gran % (Auto) 0.300, Neut % (Auto) 62.9, Lymph % (Auto) 29.8, Iron % (Auto) 6.3, Eos % (Auto) 0.4, Baso % (Auto) 0.3, Absolute Neuts (auto) 4.9, Absolute Lymphs (auto) 2.33, Total Counted Not Reportable 12/18/17 12:25: PT 13.5, INR 1.0 12/18/17 12:25: Sodium 141, Potassium 3.6, Chloride 106, Carbon Dioxide 23.0, Anion Gap 12, BUN 7, Creatinine 0.71, Estim Creat Clear Calc 94.10, Est GFR (MDRD) Af Amer 122, Est GFR (MDRD) Non-Af 101, BUN/Creatinine Ratio 9.8 L, Glucose 72 L, Calcium 8.3 L, Magnesium 2.2, Total Bilirubin 0.50, AST 37, ALT 32, Alkaline Phosphatase 81, Total Protein 7.5, Albumin 4.1, Globulin 3.4, Albumin/Globulin Ratio 1.2, Lipase 167 12/18/17 12:25: Ethyl Alcohol 135.0 12/18/17 12:25: Serum , Qual NEGATIVE 12/18/17 17:25: Urine Opiates Screen NEGATIVE, Urine Methadone Screen NEGATIVE, Ur Barbiturates Screen NEGATIVE, Ur Phencyclidine Scrn NEGATIVE, Ur Amphetamines Screen NEGATIVE, U Methamphetamin-MDMA NEGATIVE, U Benzodiazepines Scrn POSITIVE H, Urine Cocaine Screen NEGATIVE, U Cannabinoids Screen NEGATIVE, Ur Drug Screen Comment Current Medications Acetaminophen (Tylenol) 500 mg PO Q4H PRN PRN PRN Reason: Temp > 100.4 F Al Hydroxide/Mg Hydroxide (Mylanta Ii) 30 ml PO Q6H PRN PRN PRN Reason: dyspesia Bisacodyl (Dulcolax) 10 mg RECTAL DAILY PRN PRN Reason: Constipation Chlordiazepoxide (Librium) 50 mg PO Q8H [facility]; Taper Stop: 12/21/17 14:29 Last Admin: 12/19/17 05:35 Dose: 50 mg Dicyclomine HCl (Bentyl) 20 mg PO Q6H PRN PRN PRN Reason: abdominal discomfort Enoxaparin Sodium (Lovenox) 40 mg SC DAILY@1000 D[facility] Famotidine (Pepcid) 20 mg PO BID [facility] Last Admin: 12/18/17 21:43 Dose: 20 mg Folic Acid (Folic Acid) [facility] Hydroxyzine Pamoate (Vistaril Pamoate Capsule) 50 mg PO Q6H PRN PRN PRN Reason: Mild Anxiety (score 1/3) Ibuprofen (Motrin) 600 mg PO Q8H PRN PRN PRN Reason: Mild-Moderate Pain (1-5/10) Loperamide HCl (Imodium) 2 - 4 mg PO UD PRN PRN Reason: LOOSE STOOLS Lorazepam (Ativan) 2 mg IV X1 PRN PRN Reason: Seizure Lorazepam (Ativan) 1 mg IV Q4H PRN PRN PRN Reason: Severe Anxiety Methocarbamol (Methocarbamol) 750 mg PO Q6H PRN PRN PRN Reason: Muscle Aches Last Admin: 12/18/17 21:43 Dose: 750 mg Multivitamins (Multivitamin) 1 tablet PO [facility]ILY[facility] Nicotine (Nicoderm Cq (Pbkc)) 14 mg TRANSDERM. DAILY [facility] Ondansetron HCl (Zofran Odt) 4 mg PO Q6H PRN PRN PRN Reason: NAUSEA Quetiapine Fumarate (Seroquel) 25 mg PO Q6H PRN PRN PRN Reason: agitation, anxiety Last Admin: 12/18/17 21:43 Dose: 25 mg Senna (Senokot) 1 tablet PO QHS PRN PRN Reason: Constipation Sertraline HCl (Zoloft) 50 mg PO DAILY [facility] Last Admin: 12/18/17 16:32 Dose: 50 mg Sodium Chloride () 5 - 30 ml IV UD PRN PRN Reason: SALINE FLUSH Thiamine HCl (Vitamin B1) 100 mg PO DAILY[facility] Trazodone HCl (Desyrel) 50 mg PO QHS [facility] Last Admin: 12/18/17 21:43 Dose: 50 mg Medical Necessity - Tobacco Use Smoking Status: Current every day smoker Tobacco Use: Cigarettes Assessment/Plan All Active Problems Alcohol abuse (Acute) Alcohol withdrawal (Acute) The patient is a 32 y/o F w/ PMHx: Tobacco Use, History of Heroin Abuse clean x 2 years, previously on Suboxone therapy while but off since her child 3 months old without issue she notes, Untreated anxiety and depression, EtOH Abuse with daily 1.5 750 ml vodka bottle daily who presents to the [facility] per [facility] w/ noted acute EtOH withdrawal. (1) Acute EtOH Withdrawal w/ Possible DT: Admitted to [place], seizure precautions given possible DT history w/ recent decreased EtOH, routine labs obtained, UDS w/ + BZD and EtOH 135, initiated and continued on [facility] service protocol with taper course of librium, as needed Seroquel, Catapres, Bentyl, Vistaril, IV fluids, IV antiemetics, Tylenol as needed for pain. Once patient clinically improved and completion of taper nearing will plan [facility] assistance for transition to next level of rehabilitation care. Mag, phos normal levels. Maintain on CIWA protocol. (2) Anxiety and Depression, Untreated: Reviewed options with patient and given her interest and large component for her EtOH abuse and initiated her on low dose sertraline with planned increase 50-->100 mg after 1 week and further alterations with PCP pending response. Discussed timeline of response with patient. She understands possible side effects but still prefers to start in her current setting. Discussed with CM/SW and requested they obtain information for PCPs in her area to assist in successful outcome. (3) History of Heroin Abuse: Clean x 2 years, notes recent HIV and hepatitis testing w/ of child, negative. Encouraged continued clean status. Previously on suboxone therapy, off now since child ~ 3 months old. (4) Tobacco Abuse: Encouraged cessation, inpatient consultation per RT, NR if desired. (5) DVT Prophylaxis: SCDs, lovenox. Code Visit Inpatient E&M: 82692 Subs Hosp L2
[2017-12-19] MEDS: Multivitamins,Therapeutic Tablet 1 TABLET PO (09:52)
[2017-12-19] MEDS: Folic Acid 1 MG Tablet PO (09:52)
[2017-12-19] MEDS: Famotidine 20 MG Tablet PO ×2 (09:52→21:03)
[2017-12-19] MEDS: Enoxaparin 40 MG/0.4 ML Syringe SC (09:52)
[2017-12-19] MEDS: Sertraline 50 MG Tablet PO (09:53)
[2017-12-19] MEDS: Thiamine Hydrochloride 100 MG Tablet PO (09:53)
[2017-12-19] MEDS: QUEtiapine 25 MG Tablet PO (18:10)
[2017-12-19] MEDS: traZODone 50 MG Tablet PO (21:03)
[2017-12-20] VITALS (8 sets, daily range): BP systolic 88–124; BP diastolic 58–82; PULSE 71–86; RESP 18; TEMP 36.5–37.1; O2SAT 100
[2017-12-20] MEDS: chlordiazePOXIDE 25 MG Capsule PO ×2 (06:34→14:14)
--- NOTE | 2017-12-20 06:46 | PN_ITS ---
Patient Problems: Active and Suspected Problems Alcohol withdrawal (Acute) Subjective: Patient doing very well. States that she slept well and withdrawal symptoms have resolved. She remains amenable to continued evaluation and treatment for acute withdrawal as previous admission had left AMA. She did receive list of PCP for her area and states intention to set up visit to continue treatment for anxiety and depression. Patient has tolerated sertraline initiation. Patient denies fevers, chills, nausea, emesis, abdominal pain, chest pain or dyspnea. Objective: Physical Examination: General: awake, alert, oriented x 3 and cooperative, seated upright in bed, NAD. Skin: normal color, turgor, no icterus, cyanosis. HEENT: AT/NC, EOMI, PERRLA, MMM. Lungs: CTA bilaterally, moderate effort, mild decrease BL bases, no rales, ronchi or wheezing. Heart: Regular rate and rhythm; no gallop, rub audible. Abdomen: soft, NTTP, ND, normal BS. Extremities: no cyanosis, clubbing, or edema. Neurological: patient awake, alert, oriented x 3; cognitive function intact; pupils equally reactive to light and accomodation; cranial nerves II-XII grossly normal, moving all 4 extremities, no focal deficits, strength improved, preserved. Psychiatric: affect appears improved, normal, no acute evidence of depressive or anxiety feelings. Vitals/I&O's: Vital Signs Temp Pulse Resp BP Pulse Ox 97.7 F L 76 18 88/58 L 100 12/20/17 03:02 12/20/17 03:02 12/20/17 03:02 12/20/17 03:02 12/20/17 03:02 Oxygen Delivery Method Room Air Weight: 161 lb 9.581 oz Body Mass Index (BMI) 28.6 Intake and Output for Last 24 Hours 12/18/17 12/19/17 12/20/17 23:59 23:59 23:59 Intake Total 1420 / 1420 1650 / 1650 960 / 960 Output Total 200 / 200 Balance 1220 / 1220 1650 / 1650 960 / 960 Current Medications Acetaminophen (Tylenol) 500 mg PO Q4H PRN PRN PRN Reason: Temp > 100.4 F Al Hydroxide/Mg Hydroxide (Mylanta Ii) 30 ml PO Q6H PRN PRN PRN Reason: dyspesia Bisacodyl (Dulcolax) 10 mg RECTAL DAILY PRN PRN Reason: Constipation Chlordiazepoxide (Librium) 50 mg PO Q8H [facility]; Taper Stop: 12/21/17 14:29 Last Admin: 12/20/17 06:34 Dose: 50 mg Dicyclomine HCl (Bentyl) 20 mg PO Q6H PRN PRN PRN Reason: abdominal discomfort Enoxaparin Sodium (Lovenox) 40 mg SC DAILY@1000 [facility] Last Admin: 12/19/17 09:52 Dose: 40 mg Famotidine (Pepcid) 20 mg PO BID [facility] Last Admin: 12/19/17 21:03 Dose: 20 mg Folic [facility] ([facility] Acid) [facility] Last Admin: 12/19/17 09:52 Dose: 1 mg Hydroxyzine Pamoate (Vistaril Pamoate Capsule) 50 mg PO Q6H PRN PRN PRN Reason: Mild Anxiety (score 1/3) Ibuprofen (Motrin) 600 mg PO Q8H PRN PRN PRN Reason: Mild-Moderate Pain (1-5/10) Loperamide HCl (Imodium) 2 - 4 mg PO UD PRN PRN Reason: LOOSE STOOLS Lorazepam (Ativan) 2 mg IV X1 PRN PRN Reason: Seizure Lorazepam (Ativan) 1 mg IV Q4H PRN PRN PRN Reason: Severe Anxiety Methocarbamol (Methocarbamol) 750 mg PO Q6H PRN PRN PRN Reason: Muscle Aches Last Admin: 12/18/17 21:43 Dose: 750 mg Multivitamins (Multivitamin) [facility] Last Admin: 12/19/17 09:52 Dose: 1 tablet Nicotine (Nicoderm Cq (Pbkc)) 14 mg TRANSDERM. DAILY [facility] Last Admin: 12/19/17 09:53 Dose: 14 mg Ondansetron HCl (Zofran Odt) 4 mg PO Q6H PRN PRN PRN Reason: NAUSEA Quetiapine Fumarate (Seroquel) 25 mg PO Q6H PRN PRN PRN Reason: agitation, anxiety Last Admin: 12/19/17 18:10 Dose: 25 mg Senna (Senokot) 1 tablet PO QHS PRN PRN Reason: Constipation Sertraline HCl (Zoloft) 50 mg PO DAILY [facility] Last Admin: 12/19/17 09:53 Dose: 50 mg Sodium Chloride () 5 - 30 ml IV UD PRN PRN Reason: SALINE FLUSH Thiamine HCl (Vitamin B1) 100 mg PO DAILYCM [facility] Last Admin: 12/19/17 09:53 Dose: 100 mg Trazodone HCl (Desyrel) 50 mg PO QHS [facility] Last Admin: 12/19/17 21:03 Dose: 50 mg Medical Necessity - Tobacco Use Smoking Status: Current every day smoker Tobacco Use: Cigarettes Assessment/Plan All Active Problems Alcohol abuse (Acute) Alcohol withdrawal (Acute) The patient is a 32 y/o F w/ PMHx: Tobacco Use, History of Heroin Abuse clean x 2 years, previously on Suboxone therapy while but off since her child 3 months old without issue she notes, Untreated anxiety and depression, EtOH Abuse with daily 1.5 750 ml vodka bottle daily who presents to the [facility] per [facility] w/ noted acute EtOH withdrawal. (1) Acute EtOH Withdrawal w/ Possible DT: Admitted to [place], seizure precautions given possible DT history w/ recent decreased EtOH, routine labs obtained, UDS w/ + BZD and EtOH 135, initiated and continued on [facility] service protocol with taper course of librium, as needed Seroquel, Catapres, Bentyl, Vistaril, IV fluids, IV antiemetics, Tylenol as needed for pain. Mag, phos normal levels. Maintain on CIWA protocol. Plan discharge to [facility] next plan of care 12/21/17 following last dose of taper. (2) Anxiety and Depression, Untreated: Reviewed options with patient and given her interest and large component for her EtOH abuse and initiated her on low dose sertraline with planned increase 50-->100 mg after 1 week and further alterations with PCP pending response. PCP information for her region given to her to assure best change of setting of follow-up and treatment her anxiety and depression. (3) History of Heroin Abuse: Clean x 2 years, notes recent HIV and hepatitis testing w/ of child, negative. Encouraged continued clean status. Previously on suboxone therapy, off now since child ~ 3 months old. (4) Tobacco Abuse: Encouraged cessation, inpatient consultation per RT, NR if desired. (5) DVT Prophylaxis: SCDs, lovenox. Code Visit Inpatient E&M: 27362 Subs Hosp L2
[2017-12-20] MEDS: Multivitamins,Therapeutic Tablet 1 TABLET PO (10:42)
[2017-12-20] MEDS: Famotidine 20 MG Tablet PO ×2 (10:42→21:32)
[2017-12-20] MEDS: Thiamine Hydrochloride 100 MG Tablet PO (10:42)
[2017-12-20] MEDS: Sertraline 50 MG Tablet PO (10:42)
[2017-12-20] MEDS: Folic Acid 1 MG Tablet PO (10:43)
[2017-12-20] MEDS: Acetaminophen 500 MG Tablet PO (10:51)
[2017-12-20] MEDS: QUEtiapine 25 MG Tablet PO ×2 (12:41→21:32)
[2017-12-20] MEDS: traZODone 50 MG Tablet PO (21:32)
[2017-12-21 01:33] VITALS: BP 105/64; PULSE 75; RESP 18; TEMP 36.6
[2017-12-21] MEDS: chlordiazePOXIDE 25 MG Capsule PO (01:39)
[2017-12-21 08:51] VITALS: BP 137/78; PULSE 87; RESP 18; TEMP 37.1; O2SAT 97
[2017-12-21] MEDS: Folic Acid 1 MG Tablet PO (08:57)
[2017-12-21] MEDS: Multivitamins,Therapeutic Tablet 1 TABLET PO (08:57)
[2017-12-21] MEDS: Thiamine Hydrochloride 100 MG Tablet PO (08:57)
[2017-12-21] MEDS: Famotidine 20 MG Tablet PO (08:58)
[2017-12-21] MEDS: Sertraline 50 MG Tablet PO (08:58)
--- NOTE | 2017-12-21 09:15 | DCINST_ITS ---
- Discharge Diagnoses Current Active Problems: Current Active and Chronic Problems (1) Acute EtOH Withdrawal w/ Possible DT (2) Anxiety and Depression, Untreated (3) History of Heroin Abuse (4) Tobacco Abuse You will use the following diet at home:: No restrictions Your food should be the consistency of: Regular Your liquids should be the consistency of: Regular/Thin Discharge Activity: Return to Normal Activity May resume sexual activity in: No Restrictions Weight Bearing Status: Weight bearing as tolerated Call your doctor if you observe: Fever of 101 or Higher, Inability to urinate, Inability to have a bowel movement, Shortness of breath, Dizziness, Chest pain, Uncontrolled pain Instructions: Understanding Alcoholism, Alcoholism: Myths and Facts, The Impact of Alcoholism, Alcoholism: How to be Part of the Solution, Alcoholism: Resources for Family and Friends, Alcoholism: Getting Help, Alcohol Addiction, Addiction: Ask Yourself These Questions, Why Do You Smoke?, Planning to Quit Smoking, Getting Support for Quitting Smoking, Coping with Smoking Withdrawal, Staying Smoke-Free, Your Body's Response to Anxiety, Treating Anxiety Disorders with Therapy, Treating Anxiety Disorders with Medication Additional Instructions: Please continue your new zoloft regimen with increase from 50 mg to 100 mg after an additional week of treatment. As discussed please follow-up with your primary care physician to further increase as needed to achieve anxiety and depression control. If you are unable to get an appropriate timed visit please consider urgent care. Please continue to be evaluated per your therapist and they may also be a source of helping you achieve control of your mood. You have been given a rx for low dose trazodone (5 pills) to assist with sleeping if needed given your concurrent anxiety and depression. Allergies/Adverse Reactions: Allergies amoxicillin Allergy (Verified 06/27/17 13:28) Rash Medications to take at Discharge Folic Acid 1 mg PO DAILYCM #30 tab 12/21/17 Multivitamins,Therapeutic [Multivitamin] 1 tab PO DAILYCM #30 tab 12/21/17 Sertraline HCl [Zoloft] 50 mg PO DAILY 30 Days tab 12/21/17 Thiamine Hydrochloride [Vitamin B1] 100 mg PO DAILYCM #30 tab 12/21/17 traZODone [Desyrel] 50 mg PO QHS #5 tab 12/21/17 The following prescriptions were given: Folic Acid 1 mg PO DAILYCM #30 tab Multivitamins,Therapeutic [Multivitamin] 1 tab PO DAILYCM #30 tab Sertraline HCl [Zoloft] 50 mg PO DAILY 30 Days tab Thiamine Hydrochloride [Vitamin B1] 100 mg PO DAILYCM #30 tab traZODone [Desyrel] 50 mg PO QHS #5 tab Primary Care Physician: Care Physician,No Primary [Primary Care Provider] - Please follow up with your Primary Care Physician in: Please establish with PCP in your region (list given per social work/CM) Test Results: Test results from this visit will be discussed in further detail at your follow- up appointment, if applicable. Please Follow Up With: [facility] When: Continue with [facility] next plan of care. Proposed Discharge Date: 12/21/17
--- NOTE | 2017-12-21 09:17 | DS.PCM_ITS ---
Discharge Date and Diagnosis Date of Admission: 12/18/17 Date of Discharge: 12/21/17 - Primary Discharge Diagnosis Active and Suspected Problems (1) Acute EtOH Withdrawal w/ Possible DT history (2) Anxiety and Depression, Untreated (3) History of Heroin Abuse, Clean x 2 years (4) Tobacco Abuse - Secondary Discharge Diagnosis Chronic Problems Opiate addiction (Chronic) History of heroin abuse (Chronic) Tobacco use (Chronic) Anxiety and depression (Chronic) Hospital Course and Treatment Operations: None Procedures: None Summary of Care Provided: The patient is a 32 y/o F w/ PMHx: Tobacco Use, History of Heroin Abuse clean x 2 years, previously on Suboxone therapy while but off since her child 3 months old without issue she notes, Untreated anxiety and depression, EtOH Abuse with daily 1.5 750 ml vodka bottle daily who presented to the [facility] per [facility] w/ noted acute EtOH withdrawal. Admitted to [place], seizure precautions given p ossible DT history w/ recent decreased EtOH, routine labs obtained, UDS w/ + BZD and EtOH 135, initiated and continued on [facility] service protocol with taper course of librium, as needed Seroquel, Catapres, Bentyl, Vistaril, IV fluids, IV antiemetics, Tylenol as needed for pain. Mag, phos normal levels. Maintained on CIWA protocol. Patient w/ Anxiety and Depression, Untreated which she noted as a large component to her EtOH abuse. Reviewed options with patient and given her interest and large component for her EtOH abuse and initiated her on low dose sertraline with planned increase 50-->100 mg after 1 week and further alterations with PCP pending response. PCP information for her region given to her to assure best change of setting of follow-up and treatment her anxiety and depression. Patient discharged to home in stable, improved condition with sertraline rx w/ increase after 1 week to 100 mg daily, low dose trazodone 50 mg q HS x 5 days with recommended PCP evaluation in 3-5 days to review admission, monitor her mood as well as continue next step in [facility] plan of care. DAY OF DISCHARGE PROGRESS NOTE: Subjective: Patient without acute event overnight per self and nursing report. Patient notes her withdrawal symptoms have completely resolved. She notes her anxiety has been controlled. Eager to continue current regimen and notes positive intentions for continued sobriety. Patient denies fever, chills, nausea, emesis, abdominal pain, chest pain or dyspnea. Patient agreeable to discharge to home with next step in [facility] plan of care. Patient will be discharged with follow-up with primary care physician within 3-5 days in addition to [facility] step in place of care. Objective: T 98.7, heart rate 87, BP 137/78, respiratory rate 18, 97% on room air. Physical Examination: General: awake, alert, oriented x 3 and cooperative, seated upright in the bed, NAD. Skin: normal color, turgor, no icterus, cyanosis. HEENT: AT/NC, EOMI, PERRLA, MMM. Lungs: CTA bilaterally, moderate effort, no rales, ronchi or wheezing; Heart: Regular rate and rhythm; no gallop, rub audible. Abdomen: soft, NTTP, ND, normal BS. Extremities: no cyanosis, clubbing, or edema. Neurological: patient awake, alert, oriented x 3; cognitive function appears intact upon questioning,; pupils equally reactive to light and accomodation; cranial nerves II-XII grossly normal, moving all 4 extremities, strength improved, preserved Psychiatric: affect appears normal, positive, no acute evidence of depressive or anxiety feelings. Assessment and Plan: Please see hospital summary above. Discharge Activity: Return to Normal Activity May resume sexual activity in: No Restrictions Weight Bearing Status: Weight bearing as tolerated Call your doctor if you observe: Fever of 101 or Higher, Inability to urinate, Inability to have a bowel movement, Shortness of breath, Dizziness, Chest pain, Uncontrolled pain Home Medications: Medications to take at Discharge Folic Acid 1 mg PO DAILYCM #30 tab 12/21/17 Multivitamins,Therapeutic [Multivitamin] 1 tab PO DAILYCM #30 tab 12/21/17 Sertraline HCl [Zoloft] 50 mg PO DAILY 30 Days tab 12/21/17 Thiamine Hydrochloride [Vitamin B1] 100 mg PO DAILYCM #30 tab 12/21/17 traZODone [Desyrel] 50 mg PO QHS #5 tab 12/21/17 Following Prescrptions Were Given to Patient: Folic Acid 1 mg PO DAILYCM #30 tab Multivitamins,Therapeutic [Multivitamin] 1 tab PO DAILYCM #30 tab Sertraline HCl [Zoloft] 50 mg PO DAILY 30 Days tab Thiamine Hydrochloride [Vitamin B1] 100 mg PO DAILYCM #30 tab traZODone [Desyrel] 50 mg PO QHS #5 tab Primary Care Physician: Care Physician,No Primary [Primary Care Provider] - Please follow up with your Primary Care Physician in: Please establish with PCP in your region (list given per social work/CM) Please Follow Up With: [facility] When: Continue with [facility] next plan of care. Patient Instructions: Your Body's Response to Anxiety, Treating Anxiety Disorders with Therapy, Understanding Alcoholism, Alcoholism: Myths and Facts, The Impact of Alcoholism, Alcoholism: How to be Part of the Solution, Alcoholism: Resources for Family and Friends, Alcoholism: Getting Help, Alcohol Addiction, Addiction: Ask Yourself These Questions, Why Do You Smoke?, Planning to Quit Smoking, Getting Support for Quitting Smoking, Coping with Smoking Withdrawal, Staying Smoke-Free, Treating Anxiety Disorders with Medication Disposition: Home Minutes spent on discharge:: 35 Patient Condition:: Fair Medical Necessity - Tobacco Use Smoking Status: Current every day smoker Tobacco Use: Cigarettes Meaningful Use Info Meaningful Use Diagnoses (Choose all that apply): None applicable Code Visit Inpatient E&M: 54014 Disch Hosp
== END 2017-12-21 10:12 | disposition home or self-care (01) | DRG 435 ==
PROVIDERS: Admitting Provider Family Medicine; Referring Provider Family Medicine; Visit Provider Family Medicine
DX: F10.239 Alcohol dependence with withdrawal, unspecified (principal); F17.210 Nicotine dependence, cigarettes, uncomplicated; F41.9 Anxiety disorder, unspecified; F32.9 Major depressive disorder, single episode, unspecified; F11.11 Opioid abuse, in remission
CPT/HCPCS: 36415; 80053; 80307; 80320; 83690; 83735; 84100; 84703; 85025; 85610; 97802; J7120; G0480

== ENCOUNTER 2018-02-15 15:21 | Inpatient (IN) | payer MEDICAID, SELFPAY ==
[2017-12-18 12:11] VITALS: BMI 28.6
--- NOTE | 2018-02-15 15:34 | HP.PCM_ITS ---
History of Present Illness Date of Admission: 02/15/18 Chief Complaint: alcohol withdrawal The patient is a 32 year old F with a history of alcohol abuse and anxiety. She was admitted to the [facility] on 02/15/2018 for alcohol detox. Patient was admitted in December for alcohol detox and states she remained sober until about a week ago when she got very anxious and so started drinking. She usually drinks about 2 bottles of vodka daily. She is only 2 bottles of vodka about 2 hours prior to admission. She complained of tremors, headache, chills, and abdominal pain. Review of systems otherwise negative. She is been admitted for alcohol withdrawal management through [facility]. [] Past Medical History Past Medical History (Chronic Problems): Chronic Problems Opiate addiction (Chronic) History of heroin abuse (Chronic) Tobacco use (Chronic) Anxiety and depression (Chronic) Allergies amoxicillin Allergy (Verified 06/27/17 13:28) Rash Home Medications: Ambulatory Orders Medication Instructions Recorded Folic Acid 1 mg PO DAILYCM 02/15/18 Multivitamins,Therapeutic 1 tablet PO DAILYCM 02/15/18 [Multivitamin] Thiamine Hydrochloride [Vitamin B1] 100 mg PO DAILYCM 02/15/18 traZODone [Desyrel] 50 mg PO QHS 02/15/18 Surgical History: tonsillectomy Psychiatric History: Anxiety, Depression 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 Paternal History Items: No pertinent history Review of Systems Constitutional: Reports: Malaise, Weakness, Fatigue. Denies: Chills, Fever, Weight Change HEENT: Denies: Head Aches, Sinus Congestion, Sinus Drainage Cardiovascular: Denies: Chest Pain, Orthopnea, Palpitations Respiratory: Denies: Cough, Shortness of Breath, Shortness of breath at rest, Sputum production Gastrointestinal: Denies: Abdominal Pain, Nausea, Vomiting Genitourinary: Denies: Dysuria Musculoskeletal: Denies: Joint Pain, Joint Tenderness Skin: Denies: Rash, Wounds Neurological: Denies: Numbness, Tingling, Focal weakness Psychiatric: Denies: Anxiety, Depression, Homicidal Ideations, Suicidal Ideations Hematologic/ Lymphatic: Denies: Easy Bruising, Easy Bleeding VTE Information - Inpt Only VTE Present on Admission: No VTE Pharm Prophylaxis ordered?: Yes - Physical Exam General: Alert, Oriented x3, Cooperative, No apparent distress HEENT: Atraumatic, PERRLA, EOMI, Normocephalic Oral: Moist Mucosa Neck: Supple, No JVD, Negative Carotid Bruits Lungs: Clear to auscultation, Normal air movement Cardiovascular: Regular rate, Regular Rhythm, Normal S1, Normal S2, No murmurs Abdomen: Bowel Sounds Present, Soft, Non Tender, Non-Distended, No Hepato- splenomegaly Extremities: No clubbing, No cyanosis, No edema, Capillary Refill Less than 3 Seconds Skin: No rashes, No breakdown Musculoskeletal: No Tenderness to Palpation of Joints or Extremities Lymphatic: No Cervical, Supraclavicular, or Inguinal Adenopathy Neurological: Cranial nerves II-XII grossly intact Psych/Mental Status: Anxious - tearful, Alert and oriented to time, place, person, mood and affect Body Mass Index (BMI) 28.6 Assessment/Plan All Active Problems Alcohol abuse (Acute) Alcohol withdrawal (Acute) 2-year-old female admitted with alcohol withdrawal 1. Acute alcohol withdrawal * drank 2 bottle of vodka 2 hours prior to admission, which is the usual amount she drinks every day. * CIWA score on admission was ~ 25 * admit to Med Surg * check CBC, CMP, Magnesium * start alcohol withdrawal protocol with Librium as per [facility] protocol * Monitor CIWA score * P.o. thiamine, folic acid and multivitamin daily. * 2. Hypokalemia: Potassium is 3.1. We will replace and monitor. 3. Polycythemia: * Hb is 16.1. from EMR, previous Hb was ~ 15.4. * Platelets and white cell count are within normal limits. * may be secondary, from poor intake and dehydration * will hydrate gently with 1 bag of IVF and monitor * 4. Anxiety: on trazodone DVT prophylaxis: SCDs. Encourage ambulation Disposition: Patient plans to go to a friend's house upon discharge. She currently lives with her family states that the living environment is not very conducive and contributed to her falling of the band wagon and anxiety worsening. Code Visit Inpatient E&M: 53556 Init Hosp L3
[2018-02-15 15:51] VITALS: BMI 27.4; BMI 27.5
[2018-02-15] MEDS: chlordiazePOXIDE 25 MG Capsule 50 MG PO ×2 (16:49→23:07)
[2018-02-15] MEDS: Dicyclomine 10 MG Capsule 20 MG PO (16:50)
[2018-02-15] MEDS: Methocarbamol 750 MG Tablet PO ×2 (16:50→23:07)
[2018-02-15 16:51] VITALS: BP 123/78; PULSE 86; RESP 16; TEMP 36.4
[2018-02-15 17:15] LABS: Absolute Lymphocyte Count 2.22 X10^3/ul (0.83-4.51); Absolute Neutrophil Count 3.8 X10^3/uL (2.0-7.7); Basophil# 0.02 X10^3/uL; Basophil% 0.3 % (0-1); Eosinophil# 0.03 X10^3/uL; Eosinophils% 0.5 % (0-5); Hemoglobin 16.1 g/dl (12.0-15.0); Lymphocyte # 2.22 X10^3/ul (4.0); Lymphocyte % 34.2 % (19-41); Mean Corp Hgb Conc 34.3 g/gl (32-36); Mean Corpuscular Hgb 32.1 pg (27.0-32.0); Mean Corpuscular Volume 93.6 fL (81-99); Mean Platelet Vol. 8.7 fl (6.2-12.0); Monocyte# 0.47 X10^3/uL; Monocyte% 7.2 % (0-10); Neutrophil # 3.76 X10^3/uL (2.7-7.7); Neutrophil % 57.8 % (47-70); Platelet Count 286 K/mm3 (150-450); RBC Distribution Width CV 12.9 % (11.6-14.6); RBC Distribution Width SD 43.9 fl (35.1-43.9); Red Blood Count 5.02 M/mm3 (4.2-5.4); White Blood Count 6.5 K/mm3 (4.4-11.0)
[2018-02-15 17:16] LABS: POSITIVE COUNT NO; POSITIVE DIFFERENTIAL NO; POSITIVE MORPHOLOGY NO
[2018-02-15 17:34] LABS: ALB/GLOB Ratio 1.1 RATIO (0.9-2.4); AST(SGOT) 42 U/L (15-37); Alanine Aminotransfer ALT/SGPT 44 U/L (13-56); Albumin, Serum 3.9 g/dL (3.2-5.0); Alkaline Phosphatase 93 U/L (45-117); Anion Gap 12 (5-15); BUN 7 mg/dL (7-18); BUN/Creat Ratio 11.6 RATIO (10-20); Calcium,Total 8.5 mg/dL (8.5-10.1); Chloride 106 mmol/L (98-107); EST Glomerular Filtration Rate 122 mL/min (>60); Est Glom Filt Rate - Afr Amer 147 mL/min (>60); Estimated Creatinine Clearance 116.24 ml/min; Globulin 3.7 g/dL (2.2-4.2); Glucose 80 mg/dL (74-106); Magnesium 2.3 mg/dL (1.6-2.6); Potassium 3.1 mmol/L (3.5-5.1); Protein, Total 7.6 g/dL (6.4-8.2); Sodium Level 142 mmol/L (136-145)
[2018-02-15 19:50] VITALS: PULSE 105
[2018-02-15] MEDS: 0.9% Normal Saline 1,000 ML 100 ML IV (19:52)
[2018-02-15 19:57] VITALS: BP 120/84; PULSE 101; RESP 18; TEMP 36.8
[2018-02-15 20:01] VITALS: O2SAT 98
[2018-02-15] MEDS: LORazepam 2 MG/ML Syringe 1 MG IV (20:09)
[2018-02-15 22:59] VITALS: BP 116/80; PULSE 97; RESP 18; TEMP 37.1
[2018-02-15 23:03] VITALS: O2SAT 95
[2018-02-15] MEDS: traZODone 50 MG Tablet PO (23:07)
[2018-02-15] MEDS: 0.9% NaCl Peripheral Flush Adult/Peds IV (23:07)
[2018-02-16] VITALS (12 sets, daily range): BP systolic 99–119; BP diastolic 58–78; PULSE 79–101; RESP 16–18; TEMP 36.6–37; O2SAT 94–100
[2018-02-16] MEDS: chlordiazePOXIDE 25 MG Capsule 50 MG PO ×3 (05:18→17:55)
[2018-02-16 06:32] LABS: Absolute Lymphocyte Count 1.69 X10^3/ul (0.83-4.51); Absolute Neutrophil Count 2.5 X10^3/uL (2.0-7.7); Basophil# 0.01 X10^3/uL; Basophil% 0.2 % (0-1); Eosinophil# 0.07 X10^3/uL; Eosinophils% 1.5 % (0-5); Hematocrit 41.1 % (37-47); Hemoglobin 13.9 g/dl (12.0-15.0); Lymphocyte # 1.69 X10^3/ul (4.0); Lymphocyte % 35.1 % (19-41); Mean Corp Hgb Conc 33.8 g/gl (32-36); Mean Corpuscular Hgb 32.7 pg (27.0-32.0); Mean Corpuscular Volume 96.7 fL (81-99); Mean Platelet Vol. 8.8 fl (6.2-12.0); Monocyte# 0.57 X10^3/uL; Monocyte% 11.8 % (0-10); Neutrophil # 2.47 X10^3/uL (2.7-7.7); Neutrophil % 51.2 % (47-70); Platelet Count 236 K/mm3 (150-450); RBC Distribution Width CV 12.7 % (11.6-14.6); RBC Distribution Width SD 43.7 fl (35.1-43.9); Red Blood Count 4.25 M/mm3 (4.2-5.4); White Blood Count 4.8 K/mm3 (4.4-11.0)
[2018-02-16] MEDS: LORazepam 2 MG/ML Syringe 1 MG IV (06:43)
[2018-02-16] MEDS: 0.9% NaCl Peripheral Flush Adult/Peds IV (06:44)
[2018-02-16 06:45] LABS: Anion Gap 8 (5-15); BUN 18 mg/dL (7-18); BUN/Creat Ratio 21.9 RATIO (10-20); Calcium,Total 8.2 mg/dL (8.5-10.1); Chloride 108 mmol/L (98-107); Creatinine, Serum 0.82 mg/dL (0.55-1.02); EST Glomerular Filtration Rate 85 mL/min (>60); Est Glom Filt Rate - Afr Amer 103 mL/min (>60); Estimated Creatinine Clearance 85.05 ml/min; Glucose 103 mg/dL (74-106); Potassium 3.5 mmol/L (3.5-5.1); Sodium Level 143 mmol/L (136-145)
--- NOTE | 2018-02-16 06:48 | PCM.PN.HOSP ---
Subjective: Seated upright in the bed noting that symptoms since initial presentation have remarkably improved with less in tremor and mild agitation. Discussed status including failure to follow-up with physician to continue depression medications and encouraged her to maintain currently made psychiatric appointments made per [facility] to assure ongoing appropriate care given being off these medications tends to be a trigger for her to relapse and start drinking. Patient denies fevers, chills, nausea, emesis, abdominal pain, chest pain or dyspnea. Objective: Physical Examination: General: awake, alert, oriented x 3 and cooperative, seated upright in bed in no apparent distress. Skin: normal color, turgor, no icterus, cyanosis. HEENT: AT/NC, EOMI, PERRLA, MMM. Lungs: CTA bilaterally, moderate effort, mild decrease BL bases, no rales, ronchi or wheezing. Heart: Regular rate and rhythm; no gallop, rub audible. Abdomen: soft, NTTP, ND, normal BS. Extremities: no cyanosis, clubbing, or edema. Neurological: patient awake, alert, oriented x 3; cognitive function intact; pupils equally reactive to light and accomodation; cranial nerves II-XII grossly normal, moving all 4 extremities, no focal deficits, strength mildly globally decreased secondary to acute presentation. Psychiatric: affect appears mildly strained, occasionally tearful following discussions of barriers of care and need to appropriately treat her depression and anxiety as well as discussions regarding her daughter's welfare. Vitals/I&O's: Vital Signs Temp Pulse Resp BP Pulse Ox 98.1 F 83 18 117/78 100 02/16/18 06:36 02/16/18 06:36 02/16/18 06:36 02/16/18 06:36 02/16/18 06:47 Oxygen Delivery Method Room Air Weight: 160 lb Body Mass Index (BMI) 27.4 Intake and Output for Last 24 Hours 02/14/18 02/15/18 02/16/18 23:59 23:59 23:59 Intake Total 240 / 240 1729 / 1729 Output Total 500 / 500 Balance 240 / 240 1229 / 1229 Laboratory Results 02/15/18 16:58: WBC 6.5, RBC 5.02, Hgb 16.1 H, Hct 47.0, MCV 93.6, MCH 32.1 H, MCHC 34.3, RDW 12.9, RDW Differential 43.9, Plt Count 286, MPV 8.7, Immature Gran % (Auto) 0.000, Neut % (Auto) 57.8, Lymph % (Auto) 34.2, [place] % (Auto) 7.2, Eos % (Auto) 0.5, Baso % (Auto) 0.3, Absolute Neuts (auto) 3.8, Absolute Lymphs (auto) 2.22, Total Counted Not Reportable 02/15/18 16:58: Sodium 142, Potassium 3.1 L, Chloride 106, Carbon Dioxide 24.0, Anion Gap 12, BUN 7, Creatinine 0.60, Estim Creat Clear Calc 116.24, Est GFR (MDRD) Af Amer 147, Est GFR (MDRD) Non-Af 122, BUN/Creatinine Ratio 11.6, Glucose 80, Calcium 8.5, Magnesium 2.3, Total Bilirubin 0.40, AST 42 H, ALT 44, Alkaline Phosphatase 93, Total Protein 7.6, Albumin 3.9, Globulin 3.7, Albumin/Globulin Ratio 1.1 02/16/18 06:20: WBC Pending, RBC Pending, Hgb Pending, Hct Pending, MCV Pending, MCH Pending, MCHC Pending, RDW Pending, RDW Differential Pending, Plt Count Pending, Neut % (Auto) Pending, Absolute Neuts (auto) Pending, Total Counted Pending 02/16/18 06:20: Sodium 143, Potassium 3.5, Chloride 108 H, Carbon Dioxide 27.0, Anion Gap 8, BUN 18, Creatinine 0.82, Estim Creat Clear Calc 85.05, Est GFR (MDRD) Af Amer 103, Est GFR (MDRD) Non-Af 85, BUN/Creatinine Ratio 21.9 H, Glucose 103, Calcium 8.2 L Current Medications Chlordiazepoxide (Librium) 50 mg PO Q6H [facility]; Taper Stop: 02/18/18 18:44 Last Admin: 02/16/18 05:18 Dose: 50 mg Dicyclomine HCl (Bentyl) 20 mg PO Q6H PRN PRN PRN Reason: abdominal discomfort Last Admin: 02/15/18 16:50 Dose: 20 mg Folic Acid (Folic Acid) 1 mg PO DAILYCM [facility] Hydroxyzine Pamoate (Vistaril Pamoate Capsule) 50 mg PO Q6H PRN PRN PRN Reason: Mild Anxiety (score 1/3) Lorazepam (Ativan) 1 mg IV Q4H PRN PRN PRN Reason: Severe Anxiety Last Admin: 02/16/18 06:43 Dose: 1 mg Magnesium Hydroxide (Milk Of Magnesia) 30 ml PO DAILY PRN PRN PRN Reason: Constipation Methocarbamol (Methocarbamol) 750 mg PO Q6H PRN PRN PRN Reason: Muscle Aches Last Admin: 02/15/18 23:07 Dose: 750 mg Multivitamins (Multivitamin) 1 tablet PO DAILYCM DARYL Sodium Chloride () 5 - 15 ml IV UD PRN PRN Reason: SALINE FLUSH Last Admin: 02/16/18 06:44 Dose: 10 ml Thiamine HCl (Vitamin B1) 100 mg PO DAILYCM DARYL Trazodone HCl (Desyrel) 50 mg PO QHS DARYL Last Admin: 02/15/18 23:07 Dose: 50 mg Medical Necessity - Tobacco Use Smoking Status: Current every day smoker Assessment/Plan All Active Problems Alcohol abuse (Acute) Alcohol withdrawal (Acute) The patient is a 32 y/o F w/ PMHx: Tobacco Use, History of Heroin Abuse clean x 2 years, previously on Suboxone therapy while but off since her child 3 months old without issue, Untreated anxiety and depression, EtOH Abuse with daily 1.5 750 ml vodka bottle daily who presents to the [facility] per [facility] w/ noted acute EtOH withdrawal. (1) Acute EtOH Withdrawal w/ Possible DT: Admitted to [place], seizure precautions given possible DT history w/ recent decreased EtOH, routine labs obtained, requested additional testing, initiated and continued on [facility] service protocol with taper course of librium, as needed Seroquel, Bentyl, Vistaril, IV fluids, IV antiemetics, Tylenol as needed for pain. Mag level normal, pending phos level. Maintain on CIWA protocol. (2) Anxiety and Depression, Untreated: Recent admission 12/18-12/21/17 with initiation on sertraline 50 mg daily with taper in addition to trazodone q HS. Upon recent discharge had recommended increase 50-->100 mg after 1 week and further alterations with PCP pending response. CM had even obtained list for PCP information for her region to assure best possibility of follow-up and treatment her anxiety and depression as she notes this a notable etiology for her EtOH consumption. [facility] has been able to set patient up upon discharge with psychiatry and requested case management assistance to assure no barriers to care as patient has given no ride and inability to drive as a possible cause. (3) History of Heroin Abuse: Clean x 2 years, notes recent HIV and hepatitis testing negative w/ of child. Encouraged continued clean status. Previously on suboxone therapy, off since her child ~ 3 months old. (4) Tobacco Abuse: Encouraged cessation, inpatient consultation per RT, NR if desired. (5) DVT Prophylaxis: SCDs, lovenox. Code Visit Inpatient E&M: 72382 Subs Hosp L2
[2018-02-16 06:49] LABS: POSITIVE COUNT NO; POSITIVE DIFFERENTIAL NO; POSITIVE MORPHOLOGY NO
--- NOTE | 2018-02-16 06:53 | PN_ITS ---
Subjective: Seated upright in the bed noting that symptoms since initial presentation have remarkably improved with less in tremor and mild agitation. Discussed status including failure to follow-up with physician to continue depression medications and encouraged her to maintain currently made psychiatric appointments made per [facility] to assure ongoing appropriate care given being off these medications tends to be a trigger for her to relapse and start drinking. Patient denies fevers, chills, nausea, emesis, abdominal pain, chest pain or dyspnea. Objective: Physical Examination: General: awake, alert, oriented x 3 and cooperative, seated upright in bed in no apparent distress. Skin: normal color, turgor, no icterus, cyanosis. HEENT: AT/NC, EOMI, PERRLA, MMM. Lungs: CTA bilaterally, moderate effort, mild decrease BL bases, no rales, ronchi or wheezing. Heart: Regular rate and rhythm; no gallop, rub audible. Abdomen: soft, NTTP, ND, normal BS. Extremities: no cyanosis, clubbing, or edema. Neurological: patient awake, alert, oriented x 3; cognitive function intact; pupils equally reactive to light and accomodation; cranial nerves II-XII grossly normal, moving all 4 extremities, no focal deficits, strength mildly globally decreased secondary to acute presentation. Psychiatric: affect appears mildly strained, occasionally tearful following discussions of barriers of care and need to appropriately treat her depression and anxiety as well as discussions regarding her daughter's welfare. Vitals/I&O's: Vital Signs Temp Pulse Resp BP Pulse Ox 98.1 F 83 18 117/78 100 02/16/18 06:36 02/16/18 06:36 02/16/18 06:36 02/16/18 06:36 02/16/18 06:47 Oxygen Delivery Method Room Air Weight: 160 lb Body Mass Index (BMI) 27.4 Intake and Output for Last 24 Hours 02/14/18 02/15/18 02/16/18 23:59 23:59 23:59 Intake Total 240 / 240 1729 / 1729 Output Total 500 / 500 Balance 240 / 240 1229 / 1229 Laboratory Results 02/15/18 16:58: WBC 6.5, RBC 5.02, Hgb 16.1 H, Hct 47.0, MCV 93.6, MCH 32.1 H, M CHC 34.3, RDW 12.9, RDW Differential 43.9, Plt Count 286, MPV 8.7, Immature Gran % (Auto) 0.000, Neut % (Auto) 57.8, Lymph % (Auto) 34.2, [place] % (Auto) 7.2, Eos % (Auto) 0.5, Baso % (Auto) 0.3, Absolute Neuts (auto) 3.8, Absolute Lymphs (auto) 2.22, Total Counted Not Reportable 02/15/18 16:58: Sodium 142, Potassium 3.1 L, Chloride 106, Carbon Dioxide 24.0, Anion Gap 12, BUN 7, Creatinine 0.60, Estim Creat Clear Calc 116.24, Est GFR (MDRD) Af Amer 147, Est GFR (MDRD) Non-Af 122, BUN/Creatinine Ratio 11.6, Glucose 80, Calcium 8.5, Magnesium 2.3, Total Bilirubin 0.40, AST 42 H, ALT 44, Alkaline Phosphatase 93, Total Protein 7.6, Albumin 3.9, Globulin 3.7, Albumin/Globulin Ratio 1.1 02/16/18 06:20: WBC Pending, RBC Pending, Hgb Pending, Hct Pending, MCV Pending, MCH Pending, MCHC Pending, RDW Pending, RDW Differential Pending, Plt Count Pending, Neut % (Auto) Pending, Absolute Neuts (auto) Pending, Total Counted Pending 02/16/18 06:20: Sodium 143, Potassium 3.5, Chloride 108 H, Carbon Dioxide 27.0, Anion Gap 8, BUN 18, Creatinine 0.82, Estim Creat Clear Calc 85.05, Est GFR (MDRD) Af Amer 103, Est GFR (MDRD) Non-Af 85, BUN/Creatinine Ratio 21.9 H, Glucose 103, Calcium 8.2 L Current Medications Chlordiazepoxide (Librium) 50 mg PO Q6H [facility]; Taper Stop: 02/18/18 18:44 Last Admin: 02/16/18 05:18 Dose: 50 mg Dicyclomine HCl (Bentyl) 20 mg PO Q6H PRN PRN PRN Reason: abdominal discomfort Last Admin: 02/15/18 16:50 Dose: 20 mg Folic Acid (Folic Acid) 1 mg PO DAILYCM [facility] Hydroxyzine Pamoate (Vistaril Pamoate Capsule) 50 mg PO Q6H PRN PRN PRN Reason: Mild Anxiety (score 1/3) Lorazepam (Ativan) 1 mg IV Q4H PRN PRN PRN Reason: Severe Anxiety Last Admin: 02/16/18 06:43 Dose: 1 mg Magnesium Hydroxide (Milk Of Magnesia) 30 ml PO DAILY PRN PRN PRN Reason: Constipation Methocarbamol (Methocarbamol) 750 mg PO Q6H PRN PRN PRN Reason: Muscle Aches Last Admin: 02/15/18 23:07 Dose: 750 mg Multivitamins (Multivitamin) 1 tablet PO DAILYCM DARYL Sodium Chloride () 5 - 15 ml IV UD PRN PRN Reason: SALINE FLUSH Last Admin: 02/16/18 06:44 Dose: 10 ml Thiamine HCl (Vitamin B1) 100 mg PO DAILYCM DARYL Trazodone HCl (Desyrel) 50 mg PO QHS DARYL Last Admin: 02/15/18 23:07 Dose: 50 mg Medical Necessity - Tobacco Use Smoking Status: Current every day smoker Assessment/Plan All Active Problems Alcohol abuse (Acute) Alcohol withdrawal (Acute) The patient is a 32 y/o F w/ PMHx: Tobacco Use, History of Heroin Abuse clean x 2 years, previously on Suboxone therapy while but off since her child 3 months old without issue, Untreated anxiety and depression, EtOH Abuse with daily 1.5 750 ml vodka bottle daily who presents to the [facility] per [facility] w/ noted acute EtOH withdrawal. (1) Acute EtOH Withdrawal w/ Possible DT: Admitted to [place], seizure precautions given possible DT history w/ recent decreased EtOH, routine labs obtained, requested additional testing, initiated and continued on [facility] service protocol with taper course of librium, as needed Seroquel, Bentyl, Vistaril, IV fluids, IV antiemetics, Tylenol as needed for pain. Mag level normal, pending phos level. Maintain on CIWA protocol. (2) Anxiety and Depression, Untreated: Recent admission 12/18-12/21/17 with initiation on sertraline 50 mg daily with taper in addition to trazodone q HS. Upon recent discharge had recommended increase 50-->100 mg after 1 week and further alterations with PCP pending response. CM had even obtained list for PCP information for her region to assure best possibility of follow-up and treatment her anxiety and depression as she notes this a notable etiology for her EtOH consumption. [facility] has been able to set patient up upon discharge with psychiatry and requested case management assistance to assure no barriers to care as patient has given no ride and inability to drive as a possible cause. (3) History of Heroin Abuse: Clean x 2 years, notes recent HIV and hepatitis testing negative w/ of child. Encouraged continued clean status. Previously on suboxone therapy, off since her child ~ 3 months old. (4) Tobacco Abuse: Encouraged cessation, inpatient consultation per RT, NR if desired. (5) DVT Prophylaxis: SCDs, lovenox. Code Visit Inpatient E&M: 80732 Subs Hosp L2
[2018-02-16 07:34] LABS: Pregnancy, Serum, hCG Quali. NEGATIVE Negative (0-9 Nonpreg)
[2018-02-16 07:35] LABS: Phosphorus 3.4 mg/dL (2.5-4.9)
[2018-02-16] MEDS: Multivitamins,Therapeutic Tablet 1 TABLET PO (10:20)
[2018-02-16] MEDS: Thiamine Hydrochloride 100 MG Tablet PO (10:20)
[2018-02-16] MEDS: Folic Acid 1 MG Tablet PO (10:20)
[2018-02-16] MEDS: QUEtiapine 25 MG Tablet PO ×2 (10:23→17:57)
--- NOTE | 2018-02-16 13:31 | CASEMGMT ---
Social Work Note RN INGRID Balderas updated this worker that physician mentioned patient had concerns with transportation, the buses and having a child and not being able to take her child on the bus. Pt is listed as being [facility]. This worker placed a call to Dorita Rainey with [facility]. Per Dorita Rainey she provided pt with resources and pt has a psychiatrist appointment in [place] on February 22. Dorita Rainey states pt had mentioned to her that pt's friend Irma was going to transport pt. SW met with pt. SW introduced self and role at [facility]. Pt is alert and and orientated x4. Pt confirms that she knows she has an appointment on February 22. Pt denied having transportation concerns. Pt confirms that her friend Irma is available to assist pt with transportation and Irma will be taking pt to her appointment on February 22. Pt denied additional needs or concerns at this time. Kanika Velasco WHANAU SUPPORT WORKER, TRANSITIONAL CARE MANAGER
[2018-02-16] MEDS: hydrOXYzine PAM 25 MG Capsule 50 MG PO ×2 (13:55→22:34)
[2018-02-16] MEDS: Sertraline 100 MG Tablet PO (13:55)
[2018-02-16] MEDS: Methocarbamol 750 MG Tablet PO (17:57)
--- NOTE | 2018-02-16 22:29 | NURSING ---
Discussed pt's home meds with her and updated in computer. Pt states also takes PO Zofran but is unsure of the dose.
[2018-02-16] MEDS: Ibuprofen 600 MG Tablet PO (22:34)
[2018-02-16] MEDS: traZODone 50 MG Tablet PO (22:34)
[2018-02-17 02:41] VITALS: BP 105/69; PULSE 82; RESP 16; TEMP 36.9; O2SAT 100
[2018-02-17] MEDS: chlordiazePOXIDE 25 MG Capsule 50 MG PO ×2 (02:45→09:56)
--- NOTE | 2018-02-17 07:05 | PN_ITS ---
Subjective: Overnight noted mild tremors, muscle aches, restless legs and hot/cold sweats but improving. Patient notes she feels ready for discharge to home early in the AM, noting her ride will be available early. Discussed again importance of keeping follow-up with Psychiatry and PCP with continuation of her sertraline regimen with increased regimen as needed to achieve appropriate depression and anxiety control. Patient denies fevers, chills, nausea, emesis, abdominal pain, chest pain or dyspnea. Objective: Physical Examination: General: awake, alert, oriented x 3 and cooperative, seated upright in bed in no apparent distress. Skin: normal color, turgor, no icterus, cyanosis. HEENT: AT/NC, EOMI, PERRLA, MMM. Lungs: CTA bilaterally, moderate effort, mild decrease BL bases, no rales, ronchi or wheezing. Heart: Regular rate and rhythm; no gallop, rub audible. Abdomen: soft, NTTP, ND, normal BS. Extremities: no cyanosis, clubbing, or edema. Neurological: patient awake, alert, oriented x 3; cognitive function intact; pupils equally reactive to light and accomodation; cranial nerves II-XII grossly normal, moving all 4 extremities, no focal deficits, strength improved, preserved. Psychiatric: affect appears improved, calm, no obvious distress, anxiety or depression. Vitals/I&O's: Vital Signs Temp Pulse Resp BP Pulse Ox 98.5 F 82 16 105/69 100 02/17/18 02:41 02/17/18 02:41 02/17/18 02:41 02/17/18 02:41 02/17/18 02:41 Oxygen Delivery Method Room Air Weight: 160 lb 0.889 oz Body Mass Index (BMI) 27.4 Intake and Output for Last 24 Hours 02/15/18 02/16/18 02/17/18 23:59 23:59 23:59 Intake Total 240 / 240 2229 / 2229 700 / 700 Output Total 500 / 500 Balance 240 / 240 1729 / 1729 700 / 700 Laboratory Results 02/16/18 06:20: Serum , Qual NEGATIVE 02/16/18 06:20: Phosphorus 3.4 Current Medications Acetaminophen (Tylenol) 500 mg PO Q4H PRN PRN PRN Reason: Temp > 100.4 F Al Hydroxide/Mg Hydroxide (Mylanta Ii) 30 ml PO Q6H PRN PRN PRN Reason: dyspesia Bisacodyl (Dulcolax) 10 mg RECTAL DAILY PRN PRN Reason: Constipation Chlordiazepoxide (Librium) 50 mg PO Q8H [facility]; Taper Stop: 02/18/18 18:44 Last Admin: 02/17/18 02:45 Dose: 50 mg Dicyclomine HCl (Bentyl) 20 mg PO Q6H PRN PRN PRN Reason: abdominal discomfort Last Admin: 02/15/18 16:50 Dose: 20 mg [facility]) [facility] Last Admin: 02/16/18 10:20 Dose: 1 mg Hydroxyzine Pamoate (Vistaril Pamoate Capsule) 50 mg PO Q6H PRN PRN PRN Reason: Mild Anxiety (score 1/3) Last Admin: 02/16/18 22:34 Dose: 50 mg Ibuprofen (Motrin) 600 mg PO Q8H PRN PRN PRN Reason: Mild-Moderate Pain (1-5/10) Last Admin: 02/16/18 22:34 Dose: 600 mg Loperamide HCl (Imodium) 2 - 4 mg PO UD PRN PRN Reason: LOOSE STOOLS Lorazepam (Ativan) 1 mg IV Q4H PRN PRN PRN Reason: Severe Anxiety Last Admin: 02/16/18 06:43 Dose: 1 mg Magnesium Hydroxide (Milk Of Magnesia) 30 ml PO DAILY PRN PRN PRN Reason: Constipation Methocarbamol (Methocarbamol) 750 mg PO Q6H PRN PRN PRN Reason: Muscle Aches Last Admin: 02/16/18 17:57 Dose: 750 mg Multivitamins (Multivitamin) [facility] Last Admin: 02/16/18 10:20 Dose: 1 tablet Ondansetron HCl (Zofran Odt) 4 mg PO Q6H PRN PRN PRN Reason: NAUSEA Quetiapine Fumarate (Seroquel) 25 mg PO Q6H PRN PRN PRN Reason: agitation, anxiety Last Admin: 02/16/18 17:57 Dose: 25 mg Senna (Senokot) 1 tablet PO QHS PRN PRN PRN Reason: Constipation Sertraline HCl (Zoloft) 100 mg PO DAILY [facility] Last Admin: 02/16/18 13:55 Dose: 100 mg Sodium Chloride () 5 - 15 ml IV UD PRN PRN Reason: SALINE FLUSH Last Admin: 02/16/18 06:44 Dose: 10 ml Thiamine HCl (Vitamin B1) 100 mg PO DAILYCM [facility] Last Admin: 02/16/18 10:20 Dose: 100 mg Trazodone HCl (Desyrel) 50 mg PO QHS [facility] Last Admin: 02/16/18 22:34 Dose: 50 mg Medical Necessity - Tobacco Use Smoking Status: Current every day smoker Assessment/Plan All Active Problems Alcohol abuse (Acute) Alcohol withdrawal (Acute) The patient is a 32 y/o F w/ PMHx: Tobacco Use, History of Heroin Abuse clean x 2 years, previously on Suboxone therapy while but off since her child 3 months old without issue, Untreated anxiety and depression, EtOH Abuse with daily 1.5 750 ml vodka bottle daily who presents to the [facility] per [facility] w/ noted acute EtOH withdrawal. (1) Acute EtOH Withdrawal w/ Possible DT: Admitted to [place], seizure precautions given possible DT history w/ recent decreased EtOH, routine labs obtained, testing negative, initiated and continued on [facility] service protocol with taper course of librium, as needed Seroquel, Bentyl, Vistaril, IV fluids, IV antiemetics, Tylenol as needed for pain. Mag level normal, phos level normal. Maintain on CIWA protocol. Plan discharge to home 02/18/18 for continued outpatient [facility] plan. (2) Anxiety and Depression, Untreated: Recent admission 12/18-12/21/17 with initiation on sertraline 50 mg daily with taper in addition to trazodone q HS. Upon recent discharge had recommended increase 50-->100 mg after 1 week and further alterations with PCP pending response. CM had even obtained list for PCP information for her region to assure best possibility of follow-up and treatment her anxiety and depression as she notes this a notable etiology for her EtOH consumption. [facility] has been able to set patient up upon discharge with psychiatry and requested case management assistance to assure no barriers to care as patient has given no ride and inability to drive as a possible cause. (3) History of Heroin Abuse: Clean x 2 years, notes recent HIV and hepatitis testing negative w/ of child. Encouraged continued clean status. Previously on suboxone therapy, off since her child ~ 3 months old. (4) Tobacco Abuse: Encouraged cessation, inpatient consultation per RT, NR if desired. (5) Hypokalemia: Admission K+ 3.1, supplementation given, repeat level normalized, 3.5. (6) DVT Prophylaxis: SCDs, lovenox. Code Visit Inpatient E&M: 85769 Subs Hosp L2
[2018-02-17 09:49] VITALS: BP 113/81; PULSE 89; RESP 18; TEMP 36.8
[2018-02-17] MEDS: Folic Acid 1 MG Tablet PO (09:56)
[2018-02-17] MEDS: Thiamine Hydrochloride 100 MG Tablet PO (09:56)
[2018-02-17] MEDS: Multivitamins,Therapeutic Tablet 1 TABLET PO (09:56)
[2018-02-17] MEDS: Sertraline 100 MG Tablet PO (09:56)
[2018-02-17] MEDS: LORazepam 2 MG/ML Syringe 1 MG IV (11:44)
[2018-02-17] MEDS: 0.9% NaCl Peripheral Flush Adult/Peds IV (11:45)
--- NOTE | 2018-02-17 12:50 | CASEMGMT ---
SW spoke w/pt regarding the bus. She states she called the transportation in [place] and was told cannot bring her child on public transportation until her child is 2 years old, and currently her child is 15 months. SW called the [place] [employer] for pt([phone]) to check about children riding the bus. SW was informed as long as the child has a car seat, the child can ride public transportation in [place] at 15 months old. SW wrote down this information for pt and gave it to her, along w/the phone number. Pt also did confirm she has a car seat for the baby. No further needs anticipated at this time. VERONICA Barriga, [employer]
--- NOTE | 2018-02-17 13:25 | NURSING ---
came out to nurses' station and told this RN that the patient wants to leave. This RN enters room and asks how she's feeling, what's going on? Patient states that she wants to smoke. This RN states that she will call the doctor and get a patch or gum ordered. Patient states that it doesn't work, she's tried it before. Offered to call Dorita Rainey to help ease anxiety with DC plan etc. Patient states she does not want this RN to do it, she just wants to leave. This RN states she is very close to completing the program-she only has two doses of Librium left. She states that there is no one to watch her kids tomorrow and she just needs to leave. She states that if she just stays on her Zoloft she will be fine. She states she will continue with her follow up and physiatric follow up as well. She states she also plans to call her PCP to get her Zoloft script renewed. IV removed and patient signed the AMA papers. Dr. López notified as well as Dorita Rainey.
--- NOTE | 2018-02-17 13:33 | NURSING ---
mehdi Campo, exited pt's room and states that patient is planning to leave and is requesting staff to come remove her IV so that she can leave. paul RN in to speak to pt and provide emotional support. Pt stated that she needed to smoke and is leaving. ABI Florez offered nicotene patch, gum and encouraged pt to stay so that she could be discharged and have prescriptions that she needs. Pt states that she knows that she must be on her zoloft to prevent relapsing. She states that she is going to call today and get an appointment [facility] to have prescription. She also verbalizes that she is going to follow up with a psychiatrist. Pt gathered belongings, signed AMA paper, requested copy (same given) and left unit. DELBERT Ramsey notified and Dr. López notified.
--- NOTE | 2018-02-17 13:57 | PCM.DC.SUM ---
Discharge Date and Diagnosis Date of Admission: 02/15/18 Date of Discharge: 02/17/18 - Primary Discharge Diagnosis (1) Acute EtOH Withdrawal w/ Possible DT History (2) Anxiety and Depression, Untreated (3) History of Heroin Abuse, Clean x 2 years (4) Tobacco Abuse (5) Hypokalemia - Secondary Discharge Diagnosis Chronic Problems Opiate addiction (Chronic) History of heroin abuse (Chronic) Tobacco use (Chronic) Anxiety and depression (Chronic) Hospital Course and Treatment [facility] Operations: None Procedures: None Summary of Care Provided: The patient is a 32 y/o F w/ PMHx: Tobacco Use, History of Heroin Abuse clean x 2 years, previously on Suboxone therapy while but off since her child 3 months old without issue, Untreated anxiety and depression, EtOH Abuse with daily 1.5 750 ml vodka bottle daily who presented to the [facility] per [facility] w/ noted acute EtOH withdrawal. Admitted to [place], routine labs obtained, testing negative, initiated and continued on [facility] service protocol with taper course of librium, as needed Seroquel, Bentyl, Vistaril, IV fluids, IV antiemetics, Tylenol as needed for pain. Mag level normal, phos level normal. Maintained on CIWA protocol. Recent admission 12/18-12/21/17 with initiation on sertraline 50 mg daily with taper in addition to trazodone q HS. Upon recent discharge had recommended increase 50-->100 mg after 1 week and further alterations with PCP pending response. CM had even obtained list for PCP information for her region to assure best possibility of follow-up and treatment her anxiety and depression as she notes this a notable etiology for her EtOH consumption. [facility] set patient up psychiatry follow-up at discharge and also case management assistance requested to assure no barriers to care as patient has given no ride and inability to drive nor take the bus secondary to having her young child as a possible cause. Planned discharge to home 02/18/18 for continued outpatient [facility] plan; however, on 02/17/18 she left AMA despite encouragement to remain and complete the remainder of the taper. - Physical Exam Vital Signs Temp Pulse Resp BP Pulse Ox 98.3 F 89 18 113/81 H 100 02/17/18 09:49 02/17/18 09:49 02/17/18 09:49 02/17/18 09:49 02/17/18 02:41 Oxygen Delivery Method Room Air Weight: 160 lb 0.889 oz Body Mass Index (BMI) 27.4 Intake and Output for Last 24 Hours 02/15/18 02/16/18 02/17/18 23:59 23:59 23:59 Intake Total 240 / 240 2229 / 2229 1200 / 1200 Output Total 500 / 500 Balance 240 / 240 1729 / 1729 1200 / 1200 Home Medications: Medications to take at Discharge Multivitamins,Therapeutic [Multivitamin] 1 tablet PO DAILYCM 02/15/18 traZODone [Desyrel] 50 mg PO QHS 02/15/18 Sertraline HCl [Zoloft] 100 mg PO DAILY 02/16/18 Primary Care Physician: Care Physician,No Primary [Primary Care Provider] - Disposition: Against Medical Advice Minutes spent on discharge:: 35 Patient Condition:: Fair Medical Necessity - Tobacco Use Smoking Status: Current every day smoker Meaningful Use Info Meaningful Use Diagnoses (Choose all that apply): None applicable Code Visit Inpatient E&M: 85975 Disch Hosp
--- NOTE | 2018-02-17 14:00 | DS.PCM_ITS ---
Discharge Date and Diagnosis Date of Admission: 02/15/18 Date of Discharge: 02/17/18 - Primary Discharge Diagnosis (1) Acute EtOH Withdrawal w/ Possible DT History (2) Anxiety and Depression, Untreated (3) History of Heroin Abuse, Clean x 2 years (4) Tobacco Abuse (5) Hypokalemia - Secondary Discharge Diagnosis Chronic Problems Opiate addiction (Chronic) History of heroin abuse (Chronic) Tobacco use (Chronic) Anxiety and depression (Chronic) Hospital Course and Treatment [facility] Operations: None Procedures: None Summary of Care Provided: The patient is a 32 y/o F w/ PMHx: Tobacco Use, History of Heroin Abuse clean x 2 years, previously on Suboxone therapy while but off since her child 3 months old without issue, Untreated anxiety and depression, EtOH Abuse with daily 1.5 750 ml vodka bottle daily who presented to the [facility] per [facility] w/ noted acute EtOH withdrawal. Admitted to [place], routine labs obtained, testing negative, initiated and continued on [facility] service protocol with taper course of librium, as needed Seroquel, Bentyl, Vistaril, IV fluids, IV antiemetics, Tylenol as needed for pain. Mag level normal, phos level normal. Maintained on CIWA protocol. Recent admission 12/18-12/21/17 with initiation on sertraline 50 mg daily with taper in addition to trazodone q HS. Upon recent discharge had recommended increase 50-->100 mg after 1 week and further alterations with PCP pending response. CM had even obtained list for PCP information for her region to assure best possibility of follow-up and treatment her anxiety and depression as she notes this a notable etiology for her EtOH consumption. [facility] set patient up psychiatry follow-up at discharge and also case management assistance requested to assure no barriers to care as patient has given no ride and inability to drive nor take the bus secondary to having her young child as a possible cause. Planned discharge to home 02/18/18 for continued outpatient [facility] plan; however, on 02/17/18 she left AMA despite encouragement to remain and complete the remainder of the taper. - Physical Exam Vital Signs Temp Pulse Resp BP Pulse Ox 98.3 F 89 18 113/81 H 100 02/17/18 09:49 02/17/18 09:49 02/17/18 09:49 02/17/18 09:49 02/17/18 02:41 Oxygen Delivery Method Room Air Weight: 160 lb 0.889 oz Body Mass Index (BMI) 27.4 Intake and Output for Last 24 Hours 02/15/18 02/16/18 02/17/18 23:59 23:59 23:59 Intake Total 240 / 240 2229 / 2229 1200 / 1200 Output Total 500 / 500 Balance 240 / 240 1729 / 1729 1200 / 1200 Home Medications: Medications to take at Discharge Multivitamins,Therapeutic [Multivitamin] 1 tablet PO DAILYCM 02/15/18 traZODone [Desyrel] 50 mg PO QHS 02/15/18 Sertraline HCl [Zoloft] 100 mg PO DAILY 02/16/18 Primary Care Physician: Care Physician,No Primary [Primary Care Provider] - Disposition: Against Medical Advice Minutes spent on discharge:: 35 Patient Condition:: Fair Medical Necessity - Tobacco Use Smoking Status: Current every day smoker Meaningful Use Info Meaningful Use Diagnoses (Choose all that apply): None applicable Code Visit Inpatient E&M: 48841 Disch Hosp
== END 2018-02-17 13:30 | disposition left against medical advice (07) | DRG 770 ==
PROVIDERS: Admitting Provider Student in an Organized Health Care Education/Training Program; Referring Provider Student in an Organized Health Care Education/Training Program; Visit Provider Family Medicine
DX: F10.239 Alcohol dependence with withdrawal, unspecified (principal); E87.6 Hypokalemia; D75.1 Secondary polycythemia; F41.9 Anxiety disorder, unspecified; F32.9 Major depressive disorder, single episode, unspecified; F11.11 Opioid abuse, in remission; F17.200 Nicotine dependence, unspecified, uncomplicated
CPT/HCPCS: 36415; 80048; 80053; 83735; 84100; 84703; 85025; J7030; A4216

== ENCOUNTER 2020-03-13 01:03 | Inpatient (IN) | payer MEDICAID, SELFPAY ==
[2018-02-15 15:51] VITALS: BMI 27.4
[2020-03-13] VITALS (8 sets, daily range): BP systolic 98–122; BP diastolic 63–88; PULSE 71–99; RESP 16–19; TEMP 36.2–37.2; O2SAT 98–100; BMI 25.0; BMI 24.6
--- NOTE | 2020-03-13 01:28 | ED.DCSUM_ITS ---
History of Present Illness Chief Complaint: Substance Abuse Narrative: Patient presenting for evaluation secondary to requesting alcohol detox. Patient reports being a chronic alcoholic. Patient states that she can drink an entire jug of vodka in a day and typically does. Patient states that she suffered a seizure 2 days ago while she was trying to detox from alcohol. She was at an outside facility emergency department, was stabilized, and was awaiting admission for alcohol detox but was told that they could not find anywhere to admit her due to insurance reasons. She was discharged therefore, reports that she hopped a ride to this facility. Prior to presentation, she started to feel more withdrawal symptoms, and did drink some alcohol prior to presentation. Patient states that currently she feels tremulous and sweaty. She is also nauseous and vomiting. Patient denies significant agitation or hallucinations currently although she does have a history of them in the past. Patient does endorse a history of polysubstance abuse, states that she was using fentanyl but was able to self detox herself about a week ago from that. She currently denies any other substances at this time. Past Medical History - Allergies and Home Meds Allergies/Adverse Reactions: Allergies amoxicillin Allergy (Verified 03/13/20 01:09) Rash Primary Care Physician: Care Physician,No Primary [Primary Care Provider] - Prior records reviewed: Yes Past Medical History: - - Substance abuse Surgical History: tonsillectomy Smoking Status: Current every day smoker Alcohol: Heavy Drugs: - - Fentanyl - Family History Maternal Family History: Reports: - - Notes was mother was an EtOH, . Paternal Family History: Reports: No pertinent history Review of Systems All systems negative except as indicated General: Reports: Malaise, Sweats Eyes: Denies: Visual changes - bilaterally, Diplopia ENT: Denies: Rhinorrhea, Sore throat Cardiovascular: Denies: Chest pain, Palpitations Respiratory: Denies: Dyspnea, Cough, Dyspnea on exertion Gastrointestinal: Reports: Nausea, Vomiting Genitourinary: Denies: Dysuria, Hematuria, Frequency Musculoskeletal: Denies: Back pain, Extremity Pain Skin: Denies: Rash, Wounds Neurological: Reports: Headache, - - Seizure Psych: Reports: Anxiety. Denies: Depression, Suicidal thoughts, Suicidal ideations Physical Exam Vital Signs/Narrative: Vital Signs Temp Pulse Resp BP Pulse Ox 03/13/20 01:04 98.1 F 84 17 119/88 H 98 Inital Vital Signs reviewed: Yes General: Well nourished, Well developed Head: Normocephalic, Atraumatic Eyes: Perrl, EOMI ENT: Moist mucous membranes, No rhinorrhea Neck: Supple, Nontender Cardiovascular: Regular rate, Regular rhythm, No murmurs Respiratory: No distress, CTA bilaterally, Chest nontender Abdomen: Soft, Nontender, Nondistended, Normal bowel sounds Back: Nontender, Normal Inspection Extremities: Nontender, No Edema Skin: Normal color, No rash, Diaphoresis Neurological: Alert, Oriented x3, Cranial nerves II-XII grossly intact, Normal Strength, Normal Sensation, - - Fine tremor Psych: Normal Speech Pattern, No suicidal or homicidal ideation, Normal Appearance, - - CIWA 13 Diagnostic/Tx/Re-eval Laboratory Data 03/13/20 03/13/20 03/13/20 01:45 01:45 01:45 WBC 5.4 RBC 3.32 L Hgb 11.2 L Hct 33.0 L MCV 99.4 H MCH 33.7 H MCHC 33.9 RDW Std Deviation 47.4 H RDW Coeff of Taylor 13.1 Plt Count 134 L MPV 10.0 Immature Gran % (Auto) 0.200 Neut % (Auto) 70.6 H Lymph % (Auto) 22.4 [place] % (Auto) 5.8 Eos % (Auto) 0.6 Baso % (Auto) 0.4 Absolute Neuts (auto) 3.8 Absolute Lymphs (auto) 1.20 Nucleated RBC % 0 Sodium 136 Potassium 3.3 L Chloride 100 Carbon Dioxide 25.0 Anion Gap 11 BUN 11 Creatinine 0.46 L Estim Creat Clear Calc 136.29 Est GFR (MDRD) Af Amer 201 Est GFR (MDRD) Non-Af 166 BUN/Creatinine Ratio 24.1 H Glucose 89 Calcium 8.3 L Total Bilirubin 1.00 AST 109 H ALT 71 H Alkaline Phosphatase 123 H Total Protein 6.5 Albumin 3.1 L Globulin 3.4 Albumin/Globulin Ratio 0.9 Serum , Qual Urine Opiates Screen Urine Methadone Screen Ur Barbiturates Screen Ur Phencyclidine Scrn Ur Amphetamines Screen U Methamphetamin-MDMA U Benzodiazepines Scrn Urine Cocaine Screen U Cannabinoids Screen Ur Drug Screen Comment Ethyl Alcohol 70.0 03/13/20 03/13/20 01:45 02:15 WBC RBC Hgb Hct MCV MCH MCHC RDW Std Deviation RDW Coeff of Taylor Plt Count MPV Immature Gran % (Auto) Neut % (Auto) Lymph % (Auto) [place] % (Auto) Eos % (Auto) Baso % (Auto) Absolute Neuts (auto) Absolute Lymphs (auto) Nucleated RBC % Sodium Potassium Chloride Carbon Dioxide Anion Gap BUN Creatinine Estim Creat Clear Calc Est GFR (MDRD) Af Amer Est GFR (MDRD) Non-Af BUN/Creatinine Ratio Glucose Calcium Total Bilirubin AST ALT Alkaline Phosphatase Total Protein Albumin Globulin Albumin/Globulin Ratio Serum , Qual NEGATIVE Urine Opiates Screen NEGATIVE Urine Methadone Screen NEGATIVE Ur Barbiturates Screen POSITIVE H Ur Phencyclidine Scrn NEGATIVE Ur Amphetamines Screen POSITIVE H U Methamphetamin-MDMA NEGATIVE U Benzodiazepines Scrn NEGATIVE Urine Cocaine Screen NEGATIVE U Cannabinoids Screen POSITIVE H Ur Drug Screen Comment Ethyl Alcohol Patient presenting for alcohol detox. Patient does report some polysubstance use, states that she has been off of opiates for over a week. She has a capital CIWA score of 13 as noted in the physical exam. Patient was given phenobarbital as well as Ativan in the emergency department. Patient's laboratory studies show that she has mild elevation of her liver enzymes. Alcohol level was 70. Toxicology screen positive for amphetamines, barbiturates, and cannabinoids was negative for opiates. Patient was cooperative in the emergency department throughout her 2-hour stay. She has not been through our facility for detox for around 2 years. I contacted the hospitalist who agreed to admit the patient for alcohol detoxification. Patient did sign a detox contract agreeing to all the stipulations with the detox program. ED Disposition - Plan for ED Patient: Disposition: Acute Care Hospital [facility] Diagnosis: Alcohol withdrawal
[2020-03-13] MEDS: LORazepam 2 MG/ML Syringe 0.5 MG IV (01:49)
[2020-03-13] MEDS: Phenobarbital 32.4 MG Tablet 97.2 MG PO (01:50)
[2020-03-13 01:59] LABS: Absolute Neutrophil Count 3.8 X10^3/uL (2.0-7.7); Basophil# 0.02 X10^3/uL; Basophil% 0.4 % (0-1); Eosinophil# 0.03 X10^3/uL; Eosinophils% 0.6 % (0-5); Hemoglobin 11.2 g/dL (12.0-15.0); Lymphocyte % 22.4 % (19-41); Mean Corp Hgb Conc 33.9 g/dL (32-36); Mean Corpuscular Hgb 33.7 pg (27.0-32.0); Mean Corpuscular Volume 99.4 fL (81-99); Monocyte# 0.31 X10^3/uL; Monocyte% 5.8 % (0-10); NRBC Flagged by Analyzer 0 % (0-5); Neutrophil # 3.79 X10^3/uL (2.7-7.7); Neutrophil % 70.6 % (47-70); Platelet Count 134 K/mm3 (150-450); RBC Distribution Width CV 13.1 % (11.6-14.6); RBC Distribution Width SD 47.4 fl (35.1-43.9); Red Blood Count 3.32 M/mm3 (4.2-5.4); White Blood Count 5.4 K/mm3 (4.4-11.0)
[2020-03-13 02:14] LABS: Internal QC Validated? YES +Cl - CLEAR BKGD; Pregnancy, Serum, hCG Quali. NEGATIVE Negative
[2020-03-13 02:22] LABS: ALB/GLOB Ratio 0.9 RATIO (0.9-2.4); AST(SGOT) 109 U/L (15-37); Alanine Aminotransfer ALT/SGPT 71 U/L (13-56); Albumin, Serum 3.1 g/dL (3.2-5.0); Alkaline Phosphatase 123 U/L (45-117); Anion Gap 11 (5-15); BUN 11 mg/dL (7-18); BUN/Creat Ratio 24.1 RATIO (10-20); Calcium,Total 8.3 mg/dL (8.5-10.1); Chloride 100 mmol/L (98-107); Creatinine, Serum 0.46 mg/dL (0.55-1.02); EST Glomerular Filtration Rate 166 mL/min (>60); Est Glom Filt Rate - Afr Amer 201 mL/min (>60); Estimated Creatinine Clearance 136.29 ml/min; Globulin 3.4 g/dL (2.2-4.2); Glucose 89 mg/dL (74-106); Potassium 3.3 mmol/L (3.5-5.1); Protein, Total 6.5 g/dL (6.4-8.2); Sodium Level 136 mmol/L (136-145)
[2020-03-13] MEDS: Cephalexin 250 MG Capsule 500 MG PO (02:29)
[2020-03-13 02:39] LABS: Amphetamine Urine VISTA POSITIVE (<1000 ng/mL); Barbiturate Urine VISTA POSITIVE (< 200 ng/mL); Benzodiazepine Urine VISTA NEGATIVE (< 200 ng/mL); Cocaine Urine VISTA NEGATIVE (< 300 ng/mL); Ecstacy Urine VISTA NEGATIVE (< 500 ng/mL); Methadone Urine VISTA NEGATIVE (< 300 ng/mL); PCP Urine VISTA NEGATIVE (< 25 ng/mL); THC Urine VISTA POSITIVE (< 50 ng/mL); Vista UDS pH Range 8
--- NOTE | 2020-03-13 02:59 | PCM.HP.STD ---
Problem List (1) Acute alcohol withdrawal Status: Acute (2) Alcohol abuse Status: Chronic (3) Opiate addiction Status: Chronic (4) History of heroin abuse Status: Chronic (5) Tobacco use Status: Chronic (6) Anxiety and depression Status: Chronic History of Present Illness Date of Admission: 03/13/20 Chief Complaint: Acute alcohol withdrawal The patient is a 34 year old F with past medical history as mentioned above presented to the emergency room requesting admission for acute alcohol withdrawal. Patient stated that she drinks large amount of vodka every day and her last drink was yesterday morning. Her main presenting complaint weakness, tremors and sweating and fatigue as well as abdominal cramps. She mentioned that she has been having issues with anxiety as well and shakiness. She stated that 2 days ago, she had a seizure while she was trying to stop drinking alcohol. She went to emergency department at another facility but there was no beds available for admission for detox. She denied use of other drugs. In 2018, she was admitted 3 times for alcohol detox but she relapsed and she stayed sober only for short period of time. In the emergency department, her vital signs were stable. Her routine blood work was remarkable for hemoglobin of 11.2, platelet of 134, potassium is 3.3, otherwise normal. LFT revealed slight elevated liver transaminases. Serum was negative. Urine drug screen was positive for barbiturates, amphetamines and cannabinoids. Blood alcohol level was 70. She is being admitted for acute alcohol withdrawal for medical stabilization. Past Medical History Past Medical History (Chronic Problems): Chronic Problems Alcohol abuse (Chronic) Opiate addiction (Chronic) History of heroin abuse (Chronic) Tobacco use (Chronic) Anxiety and depression (Chronic) Allergies amoxicillin Allergy (Verified 03/13/20 01:09) Rash Home Medications: Ambulatory Orders Medication Instructions Recorded Multivitamins,Therapeutic 1 tablet PO DAILYCM 02/15/18 [Multivitamin] traZODone [Desyrel] 50 mg PO QHS PRN 02/15/18 Clonidine HCl 0.1 mg PO BID 03/13/20 Surgical History: tonsillectomy Psychiatric History: Anxiety, Depression FIELD SERVICES MANAGER History: No pertinent FIELD SERVICES MANAGER history Smoking Status: Current every day smoker Tobacco Use: Cigarettes Alcohol: Heavy Drugs: None - Currently, she denied use of opioids., - - *Family History Maternal History Items: - - Notes was mother was an EtOH, . Paternal History Items: No pertinent history Review of Systems Constitutional: Reports: Anorexia, Malaise, Weakness. Denies: Chills, Fever Eyes: Denies: Blurred vision, Double vision, Drainage, Redness HEENT: Denies: Difficulty Hearing, Ear Pain, Eye Pain, Nasal Congestion, Sore Throat Cardiovascular: Denies: Chest Pain, Claudication, Chest Pressure, Edema, Heaviness, Palpitations, Syncope Respiratory: Denies: Cough, Pleuritic Pain, Shortness of Breath, Sputum production, Wheezing Gastrointestinal: Reports: - - Abdominal cramps.. Denies: Abdominal Pain, Constipation, Diarrhea, Nausea, Vomiting Genitourinary: Denies: Dysuria, Frequency, Hematuria Musculoskeletal: Denies: Arm Pain, Back Pain, Foot Pain Skin: Denies: Dryness, Rash Neurological: Reports: Tremor. Denies: Balance problems, Double vision, Change in Speech, Slurred speech, Confusion Psychiatric: Reports: Anxiety, Depression Endocrine: Denies: Change in Body Habitus, Polydipsia, Polyuria VTE Information - Inpt Only VTE Present on Admission: No VTE Mechan Device Prophylaxis: None VTE Pharm Prophylaxis ordered?: No - Physical Exam Vitals/I&O's: Vital Signs Temp Pulse Resp BP Pulse Ox 98.1 F 84 18 119/88 H 99 03/13/20 01:04 03/13/20 01:04 03/13/20 01:53 03/13/20 01:53 03/13/20 01:53 Oxygen Delivery Method Room Air Weight: 136 lb 14.513 oz Body Mass Index (BMI) 25.0 General: Alert, Oriented x3, Cooperative, No apparent distress HEENT: Atraumatic, PERRLA, EOMI, Normocephalic Oral: Moist Mucosa, No Gingival or Mucosal Lesions/ Ulcerations Neck: Supple, No JVD, Negative Carotid Bruits, Trachea Midline, Thyroid Normal Size and Texture Lungs: Clear to auscultation, Normal air movement, No rhonchi, No wheeze, No rales Cardiovascular: Regular rate, Regular Rhythm, Normal S1, Normal S2, PMI Normal Abdomen: Bowel Sounds Present, Soft, Non Tender, Non-Distended, No Hepato-splenomegaly Extremities: No clubbing, No cyanosis, No edema Skin: No rashes, No breakdown Lymphatic: No Cervical, Supraclavicular, or Inguinal Adenopathy Neurological: Cranial nerves II-XII grossly intact, Motor Exam 5/5 strength throughout Psych/Mental Status: Normal Affect, Appropriate, Alert and oriented to time, place, person, mood and affect Laboratory Results 03/13/20 01:45: WBC 5.4, RBC 3.32 L, Hgb 11.2 L, Hct 33.0 L, MCV 99.4 H, MCH 33.7 H, MCHC 33.9, RDW Std Deviation 47.4 H, RDW Coeff of Taylor 13.1, Plt Count 134 L, MPV 10.0, Immature Gran % (Auto) 0.200, Neut % (Auto) 70.6 H, Lymph % (Auto) 22.4, [place] % (Auto) 5.8, Eos % (Auto) 0.6, Baso % (Auto) 0.4, Absolute Neuts (auto) 3.8, Absolute Lymphs (auto) 1.20, Nucleated RBC % 0 03/13/20 01:45: Sodium 136, Potassium 3.3 L, Chloride 100, Carbon Dioxide 25.0, Anion Gap 11, BUN 11, Creatinine 0.46 L, Estim Creat Clear Calc 136.29, Est GFR (MDRD) Af Amer 201, Est GFR (MDRD) Non-Af 166, BUN/Creatinine Ratio 24.1 H, Glucose 89, Calcium 8.3 L, Total Bilirubin 1.00, AST 109 H, ALT 71 H, Alkaline Phosphatase 123 H, Total Protein 6.5, Albumin 3.1 L, Globulin 3.4, Albumin/Globulin Ratio 0.9 03/13/20 01:45: Ethyl Alcohol 70.0 03/13/20 01:45: Serum , Qual NEGATIVE 03/13/20 02:15: Urine Opiates Screen NEGATIVE, Urine Methadone Screen NEGATIVE, Ur Barbiturates Screen POSITIVE H, Ur Phencyclidine Scrn NEGATIVE, Ur Amphetamines Screen POSITIVE H, U Methamphetamin-MDMA NEGATIVE, U Benzodiazepines Scrn NEGATIVE, Urine Cocaine Screen NEGATIVE, U Cannabinoids Screen POSITIVE H, Ur Drug Screen Comment Assessment/Plan All Active Problems Acute alcohol withdrawal (Acute) This is a 34 years old female patient presented to the emergency room for acute alcohol withdrawal requesting admission for medical stabilization. #1 acute alcohol withdrawal: In 2018, patient was admitted 3 times for detox but she relapsed. She has been drinking vodka every day, last drink was yesterday morning. Vital signs are stable. Urine drug screen is positive for barbiturates, amphetamines and cannabinoids. Blood alcohol level is 70. Routine blood work was remarkable for mild anemia, thrombocytopenia and those are likely due to chronic liver disease secondary to alcohol abuse. LFT revealed slight elevated liver transaminases which is likely due to alcoholic hepatitis. Plan: Admit to [facility] floor, initiate alcohol withdrawal protocol with tapering phenobarbital, thiamine and folic supplement, as needed Bentyl, gabapentin, Vistaril, ibuprofen, Imodium, Zofran, trazodone, consult 180 program. #2 history of opioid abuse: Currently, patient denied any opioid use. Urine drug screen is positive for opiates, amphetamines and cannabinoids. Plan as above. #3 hypertension: Patient mentioned that she has history of hypertension and she has been on clonidine. Currently, blood pressure stable, continue clonidine twice daily. #4 anxiety and depression: Currently, she is not on treatment. She may need to be on antidepressant upon discharge. #5 tobacco abuse: NicoDerm patch if desired. #6 DVT prophylaxis: Low risk patient, no prophylaxis indicated. This note was generated with [employer] dictation software. It may contain incorrect words, spelling, and punctuation that were not noted in checking the note before signing. Inpatient E&M: 05213 Init Hosp L2
[2020-03-13] MEDS: hydrOXYzine PAM 25 MG Capsule 50 MG PO (04:28)
[2020-03-13] MEDS: Phenobarbital 32.4 MG Tablet 64.8 MG PO ×5 (05:58→21:02)
[2020-03-13] MEDS: 0.9% Saline Lock 10 ML Syringe IV (05:59)
--- NOTE | 2020-03-13 09:08 | CASEMGMT ---
SW spoke w/ from [facility], let her know pt is here, they will follow up w/pt today. VERONICA Barriga
[2020-03-13] MEDS: Folic Acid 1 MG Tablet PO (09:20)
[2020-03-13] MEDS: Thiamine Hydrochloride 100 MG Tablet PO (09:20)
[2020-03-13] MEDS: cloNIDine HCl 0.1 MG Tablet PO ×2 (09:20→21:02)
[2020-03-13] MEDS: Dicyclomine 10 MG Capsule 20 MG PO (09:25)
[2020-03-13] MEDS: Gabapentin 300 MG Capsule PO (09:25)
--- NOTE | 2020-03-13 09:42 | PCM.PN.HOSP ---
Patient Problems: Active and Suspected Problems Alcohol withdrawal (Acute) Acute alcohol withdrawal (Acute) Reason for Visit: alcohol wd Subjective: Everything is wrong: abdominal pain, headache, rhinitis, restless legs. Vitals/I&O's: Vital Signs Temp Pulse Resp BP Pulse Ox 37.1 C 90 16 108/63 99 03/13/20 03:53 03/13/20 03:53 03/13/20 03:53 03/13/20 03:53 03/13/20 03:53 Oxygen Delivery Method Room Air Weight: 61.1 kg Body Mass Index (BMI) 24.6 General: Alert, - - uncomfortable. afebrile. writhing. Neck: No Nodes, Thyroid Normal Size and Texture Lungs: Clear to auscultation, Normal air movement, No rhonchi, No wheeze Cardiovascular: Regular rate, Regular Rhythm, Normal S1, Normal S2, No murmurs Abdomen: Bowel Sounds Present, Soft, Non-Distended Psych/Mental Status: Normal Affect, Appropriate Laboratory Results 03/13/20 01:45: WBC 5.4, RBC 3.32 L, Hgb 11.2 L, Hct 33.0 L, MCV 99.4 H, MCH 33.7 H, MCHC 33.9, RDW Std Deviation 47.4 H, RDW Coeff of Taylor 13.1, Plt Count 134 L, MPV 10.0, Immature Gran % (Auto) 0.200, Neut % (Auto) 70.6 H, Lymph % (Auto) 22.4, [place] % (Auto) 5.8, Eos % (Auto) 0.6, Baso % (Auto) 0.4, Absolute Neuts (auto) 3.8, Absolute Lymphs (auto) 1.20, Nucleated RBC % 0 03/13/20 01:45: Sodium 136, Potassium 3.3 L, Chloride 100, Carbon Dioxide 25.0, Anion Gap 11, BUN 11, Creatinine 0.46 L, Estim Creat Clear Calc 136.29, Est GFR (MDRD) Af Amer 201, Est GFR (MDRD) Non-Af 166, BUN/Creatinine Ratio 24.1 H, Glucose 89, Calcium 8.3 L, Total Bilirubin 1.00, AST 109 H, ALT 71 H, Alkaline Phosphatase 123 H, Total Protein 6.5, Albumin 3.1 L, Globulin 3.4, Albumin/Globulin Ratio 0.9 03/13/20 01:45: Ethyl Alcohol 70.0 03/13/20 01:45: Serum , Qual NEGATIVE 03/13/20 02:15: Urine Opiates Screen NEGATIVE, Urine Methadone Screen NEGATIVE, Ur Barbiturates Screen POSITIVE H, Ur Phencyclidine Scrn NEGATIVE, Ur Amphetamines Screen POSITIVE H, U Methamphetamin-MDMA NEGATIVE, U Benzodiazepines Scrn NEGATIVE, Urine Cocaine Screen NEGATIVE, U Cannabinoids Screen POSITIVE H, Ur Drug Screen Comment Current Medications Clonidine (Clonidine Hcl 0.1 Mg Tablet) 0.1 mg PO BID [facility] Last Admin: 03/13/20 09:20 Dose: 0.1 mg Documented by: Dicyclomine HCl (Dicyclomine 10 Mg Capsule) 20 mg PO Q6H PRN PRN PRN Reason: abdominal discomfort Last Admin: 03/13/20 09:25 Dose: 20 mg Documented by: Folic Acid (Folic Acid 1 Mg Tablet) 1 mg PO DAILY@0800 [facility] Last Admin: 03/13/20 09:20 Dose: 1 mg Documented by: Gabapentin (Gabapentin 300 Mg Capsule) 300 mg PO Q8H PRN PRN PRN Reason: moderate to severe anxiety Last Admin: 03/13/20 09:25 Dose: 300 mg Documented by: Hydroxyzine Pamoate (Hydroxyzine Yadi 25 Mg Capsule) 50 mg PO Q4H PRN PRN PRN Reason: mild anxiety Last Admin: 03/13/20 04:28 Dose: 50 mg Documented by: Ibuprofen (Ibuprofen 600 Mg Tablet) 600 mg PO Q8H PRN PRN PRN Reason: Pain Score 1-10 Loperamide HCl (Loperamide 2 Mg Capsule) 2 mg PO Q4H PRN PRN PRN Reason: LOOSE STOOLS Nicotine (Nicotine 21 Mg Patch) 21 mg TD DAILY [facility] Last Admin: 03/13/20 04:58 Dose: 21 mg Documented by: Ondansetron HCl (Ondansetron 8 Mg Tablet) 8 mg PO Q8H PRN PRN PRN Reason: NAUSEA Phenobarbital (Phenobarbital 32.4 Mg Tablet) 97.2 mg PO Q4H [facility]; Taper Stop: 03/17/20 13:59 Last Admin: 03/13/20 09:25 Dose: 97.2 mg Documented by: Senna (Senna Tablet) 2 tablet PO QHS PRN PRN Reason: Constipation Sodium Chloride (0.9% Saline Lock 10 Ml Syringe) 10 - 40 ml IV UD PRN PRN Reason: SALINE FLUSH Last Admin: 03/13/20 05:59 Dose: 10 ml Documented by: Thiamine HCl (Thiamine Hydrochloride 100 Mg Tablet) 100 mg PO DAILYCM DARYL Last Admin: 03/13/20 09:20 Dose: 100 mg Documented by: Trazodone HCl (Trazodone 100 Mg Tablet) 100 mg PO QHS PRN PRN Reason: INSOMNIA Medical Necessity - Tobacco Use Smoking Status: Current every day smoker Tobacco Use: Cigarettes Assessment/Plan All Active Problems Alcohol withdrawal (Acute) Acute alcohol withdrawal (Acute) 1. acute alcohol withdrawal ongoing. Clinical appearance is more C/W opiate withdrawal, however, she denies current usage (UDS negative for opiates, but may not sheepskin pickler synthetics [i.e., fentanyl]) continue phenobarbital and thiamine and folate addiction to evaluate 2. VTE prophylaxis: not indicated Inpatient E&M: 57489 Subs Hosp L2
--- NOTE | 2020-03-13 11:45 | ADDICTION ---
This board writer attempted to meet with patient. Patient declined to meet today noting that she is not feeling well. This board writer will attempt to meet tomorrow.
[2020-03-13] MEDS: traZODone 100 MG Tablet PO (21:02)
[2020-03-14] MEDS: hydrOXYzine PAM 25 MG Capsule 50 MG PO ×3 (01:58→20:18)
[2020-03-14] MEDS: Phenobarbital 32.4 MG Tablet 64.8 MG PO ×6 (01:59→22:48)
[2020-03-14 02:00] VITALS: BP 98/60; PULSE 72; RESP 18; TEMP 36.8; O2SAT 99
[2020-03-14 05:58] VITALS: BP 115/90; PULSE 77; RESP 16; TEMP 36.6; O2SAT 100
--- NOTE | 2020-03-14 08:50 | PCM.PN.HOSP ---
Patient Problems: Active and Suspected Problems Alcohol withdrawal (Acute) Acute alcohol withdrawal (Acute) Reason for Visit: alcohol withdrawal Subjective: Feels fine, does not elaborate. Vitals/I&O's: Vital Signs Temp Pulse Resp BP Pulse Ox 36.6 C 77 16 115/90 H 100 03/14/20 05:58 03/14/20 05:58 03/14/20 05:58 03/14/20 05:58 03/14/20 05:58 Oxygen Delivery Method Room Air Weight: 61.1 kg Body Mass Index (BMI) 24.6 Intake and Output for Last 24 Hours 03/12/20 03/13/20 03/14/20 23:59 23:59 23:59 Intake Total 1240 / 1240 Balance 1240 / 1240 General: Alert, No apparent distress HEENT: Atraumatic, Normocephalic Oral: Moist Mucosa, No Gingival or Mucosal Lesions/ Ulcerations Neck: No Nodes, Thyroid Normal Size and Texture Lungs: Clear to auscultation, Normal air movement, No rhonchi, No wheeze Cardiovascular: Regular rate, Regular Rhythm, Normal S1, Normal S2, No murmurs Abdomen: Bowel Sounds Present, Soft, Non Tender, Non-Distended, No Hepato-splenomegaly Extremities: No edema, No Calf Tenderness Psych/Mental Status: Flat Affect Current Medications Clonidine (Clonidine Hcl 0.1 Mg Tablet) 0.1 mg PO BID [facility] Last Admin: 03/13/20 21:02 Dose: 0.1 mg Documented by: Dicyclomine HCl (Dicyclomine 10 Mg Capsule) 20 mg PO Q6H PRN PRN PRN Reason: abdominal discomfort Last Admin: 03/13/20 09:25 Dose: 20 mg Documented by: Folic Acid (Folic Acid 1 Mg Tablet) 1 mg PO DAILY@0800 [facility] Last Admin: 03/13/20 09:20 Dose: 1 mg Documented by: Gabapentin (Gabapentin 300 Mg Capsule) 300 mg PO Q8H PRN PRN PRN Reason: moderate to severe anxiety Last Admin: 03/13/20 09:25 Dose: 300 mg Documented by: Hydroxyzine Pamoate (Hydroxyzine Yadi 25 Mg Capsule) 50 mg PO Q4H PRN PRN PRN Reason: mild anxiety Last Admin: 03/14/20 01:58 Dose: 50 mg Documented by: Ibuprofen (Ibuprofen 600 Mg Tablet) 600 mg PO Q8H PRN PRN PRN Reason: Pain Score 1-10 Loperamide HCl (Loperamide 2 Mg Capsule) 2 mg PO Q4H PRN PRN PRN Reason: LOOSE STOOLS Nicotine (Nicotine 21 Mg Patch) 21 mg TD DAILY [facility] Last Admin: 03/13/20 04:58 Dose: 21 mg Documented by: Ondansetron HCl (Ondansetron 8 Mg Tablet) 8 mg PO Q8H PRN PRN PRN Reason: NAUSEA Phenobarbital (Phenobarbital 32.4 Mg Tablet) 97.2 mg PO Q4H [facility]; Taper Stop: 03/17/20 13:59 Last Admin: 03/14/20 05:59 Dose: 97.2 mg Documented by: Senna (Senna Tablet) 2 tablet PO QHS PRN PRN Reason: Constipation Sodium Chloride (0.9% Saline Lock 10 Ml Syringe) 10 - 40 ml IV UD PRN PRN Reason: SALINE FLUSH Last Admin: 03/13/20 05:59 Dose: 10 ml Documented by: Thiamine HCl ([facility] Hydrochloride 100 Mg Tablet) [facility] Last Admin: 03/13/20 09:20 Dose: 100 mg Documented by: Trazodone HCl (Trazodone 100 Mg Tablet) 100 mg PO QHS PRN PRN Reason: INSOMNIA Last Admin: 03/13/20 21:02 Dose: 100 mg Documented by: STROKE Vital Signs/Narrative: Vital Signs Temp Pulse Resp BP Pulse Ox 03/14/20 05:58 36.6 C 77 16 115/90 H 100 Medical Necessity - Tobacco Use Smoking Status: Current every day smoker Tobacco Use: Cigarettes Assessment/Plan All Active Problems Alcohol withdrawal (Acute) Acute alcohol withdrawal (Acute) 1. acute alcohol withdrawal ongoing. Clinical appearance is more C/W opiate withdrawal, however, she denies current usage (UDS negative for opiates, but may not cotton picker synthetics [i.e., fentanyl]) continue phenobarbital and thiamine and folate addiction to evaluate, pt declined eval on 03/13 2. VTE prophylaxis: not indicated Inpatient E&M: 14007 Subs Hosp L2
[2020-03-14 09:50] VITALS: BP 118/76; PULSE 74; RESP 18; TEMP 36.4; O2SAT 100
[2020-03-14] MEDS: Thiamine Hydrochloride 100 MG Tablet PO (09:53)
[2020-03-14] MEDS: Folic Acid 1 MG Tablet PO (09:53)
[2020-03-14] MEDS: cloNIDine HCl 0.1 MG Tablet PO ×2 (09:53→17:24)
--- NOTE | 2020-03-14 11:04 | ADDICTION ---
This abstract writer met with patient in her room to conduct ASAM, MSE, AUDIT and DUDIT assessments and to plan for discharge. Patient was alert/oriented x4 and participated effectively. She requested direct admit into [facility] upon d/c from [facility]. Referral sent to residential real estate agent. All assessments completed and faxed to /placed in patient's chart. This abstract writer will follow up with [facility] to finalize admission coordination.
[2020-03-14 14:20] VITALS: BP 111/70; PULSE 70; RESP 16; TEMP 36.3; O2SAT 100
[2020-03-14] MEDS: Gabapentin 300 MG Capsule PO (16:11)
[2020-03-14] MEDS: Dicyclomine 10 MG Capsule 20 MG PO (17:24)
[2020-03-14] MEDS: Ibuprofen 600 MG Tablet PO (17:24)
[2020-03-14 17:26] VITALS: BP 123/72; PULSE 86; RESP 18; TEMP 36.3; O2SAT 100
[2020-03-14 20:17] VITALS: BP 113/75; PULSE 83; RESP 14; TEMP 36.9; O2SAT 100
[2020-03-14] MEDS: traZODone 100 MG Tablet PO (20:18)
[2020-03-15] VITALS (7 sets, daily range): BP systolic 84–118; BP diastolic 54–71; PULSE 72–89; RESP 14–20; TEMP 36.7–37; O2SAT 100
[2020-03-15] MEDS: Gabapentin 300 MG Capsule PO ×2 (02:12→14:20)
[2020-03-15] MEDS: Phenobarbital 32.4 MG Tablet 64.8 MG PO ×5 (02:12→20:30)
[2020-03-15] MEDS: hydrOXYzine PAM 25 MG Capsule 50 MG PO ×3 (04:04→15:47)
[2020-03-15] MEDS: Dicyclomine 10 MG Capsule 20 MG PO ×2 (04:04→15:47)
[2020-03-15] MEDS: Ibuprofen 600 MG Tablet PO (04:04)
[2020-03-15] MEDS: cloNIDine HCl 0.1 MG Tablet PO ×2 (05:05→20:29)
--- NOTE | 2020-03-15 07:15 | PCS.PANDOC ---
PANDEMIC DOCUMENTATION INITIATED: Date: 02/20/2020 Time:
--- NOTE | 2020-03-15 09:13 | PN_ITS ---
Patient Problems: Active and Suspected Problems Alcohol withdrawal (Acute) Acute alcohol withdrawal (Acute) Reason for Visit: alcohol withdrawal Subjective: Sleeping well, though did wake up agitated this AM around 0400. Restless all over. Tolerating some PO intake. Vitals/I&O's: Vital Signs Temp Pulse Resp BP Pulse Ox 36.7 C 81 16 84/55 L 100 03/15/20 09:12 03/15/20 09:12 03/15/20 09:12 03/15/20 09:12 03/15/20 09:12 Oxygen Delivery Method Room Air Weight: 61.1 kg Body Mass Index (BMI) 24.6 Intake and Output for Last 24 Hours 03/13/20 03/14/20 03/15/20 23:59 23:59 23:59 Intake Total 1240 / 1740 900 / 900 Balance 1240 / 1740 900 / 900 General: Alert, - - less agitated and anxious today. HEENT: Atraumatic, Normocephalic Oral: Moist Mucosa, No Gingival or Mucosal Lesions/ Ulcerations Neck: No Nodes, Thyroid Normal Size and Texture Lungs: Clear to auscultation, Normal air movement, No rhonchi, No wheeze, No rales Cardiovascular: Regular rate, Regular Rhythm, Normal S1, Normal S2, No murmurs Abdomen: Bowel Sounds Present, Soft, Non Tender, Non-Distended, No Hepato-spleno megaly Extremities: No edema, No Calf Tenderness Skin: No rashes, No breakdown Psych/Mental Status: Normal Affect, Appropriate Current Medications Clonidine (Clonidine Hcl 0.1 Mg Tablet) 0.1 mg PO BID [facility] Last Admin: 03/15/20 05:05 Dose: 0.1 mg Documented by: Dicyclomine HCl (Dicyclomine 10 Mg Capsule) 20 mg PO Q6H PRN PRN PRN Reason: abdominal discomfort Last Admin: 03/15/20 04:04 Dose: 20 mg Documented by: Folic Acid (Folic Acid 1 Mg Tablet) 1 mg PO DAILY@0800 [facility] Last Admin: 03/14/20 09:53 Dose: 1 mg Documented by: Gabapentin (Gabapentin 300 Mg Capsule) 300 mg PO Q8H PRN PRN PRN Reason: moderate to severe anxiety Last Admin: 03/15/20 02:12 Dose: 300 mg Documented by: Hydroxyzine Pamoate (Hydroxyzine Yadi 25 Mg Capsule) 50 mg PO Q4H PRN PRN PRN Reason: mild anxiety Last Admin: 03/15/20 04:04 Dose: 50 mg Documented by: Ibuprofen (Ibuprofen 600 Mg Tablet) 600 mg PO Q8H PRN PRN PRN Reason: Pain Score 1-10 Last Admin: 03/15/20 04:04 Dose: 600 mg Documented by: Loperamide HCl (Loperamide 2 Mg Capsule) 2 mg PO Q4H PRN PRN PRN Reason: LOOSE STOOLS Nicotine (Nicotine 21 Mg Patch) 21 mg TD DAILY [facility] Last Admin: 03/14/20 09:53 Dose: 21 mg Documented by: Ondansetron HCl (Ondansetron 8 Mg Tablet) 8 mg PO Q8H PRN PRN PRN Reason: NAUSEA Phenobarbital (Phenobarbital 32.4 Mg Tablet) 64.8 mg PO Q4H [facility]; Taper Stop: 03/17/20 13:59 Last Admin: 03/15/20 05:05 Dose: 64.8 mg Documented by: Senna (Senna Tablet) 2 tablet PO QHS PRN PRN Reason: Constipation Sodium Chloride (0.9% Saline Lock 10 Ml Syringe) 10 - 40 ml IV UD PRN PRN Reason: SALINE FLUSH Last Admin: 03/13/20 05:59 Dose: 10 ml Documented by: Thiamine HCl ([facility] Hydrochloride 100 Mg [facility]t) [facility] Admin: 03/14/20 09:53 Dose: 100 mg Documented by: Trazodone HCl (Trazodone 100 Mg Tablet) 100 mg PO QHS PRN PRN Reason: INSOMNIA Last Admin: 03/14/20 20:18 Dose: 100 mg Documented by: STROKE Vital Signs/Narrative: Vital Signs Temp Pulse Resp BP Pulse Ox 03/15/20 09:12 36.7 C 81 16 84/55 L 100 Medical Necessity - Tobacco Use Smoking Status: Current every day smoker Tobacco Use: Cigarettes Assessment/Plan All Active Problems Alcohol withdrawal (Acute) Acute alcohol withdrawal (Acute) 1. acute alcohol withdrawal * ongoing, but improving. Clinical appearance is more C/W opiate withdrawal, however, she denies current usage (UDS negative for opiates, but may not pick up attendant synthetics [i.e., fentanyl]) * continue phenobarbital and thiamine and folate. Pt to complete phenobarbital taper 03/17/2020. * Addiction medicine looking into [facility] program upon discharge. If can be arranged, then the plan would to board the patient until 03/19/2020 so she can be directly discharged into the program. I did inform the patient that if there would be a large surge of hospitalizations in the interim, then she may need to be discharge after completion of her phenobarbital. 2. VTE prophylaxis: not indicated Inpatient E&M: 87851 Subs Hosp L2
[2020-03-15] MEDS: Folic Acid 1 MG Tablet PO (09:14)
[2020-03-15] MEDS: Thiamine Hydrochloride 100 MG Tablet PO (09:14)
--- NOTE | 2020-03-15 11:02 | ADDICTION ---
This documentation writer met with patient to finalize d/c plan. Patient will discharge from [facility] and will directly admit into [facility]. [facility] to provide transport to treatment facility. Patient has high blood pressure medication among her belongings. Patient will be picked up by [facility] transport at 11 am on 03/16/2020. Patient agreeable. [facility] SW updated.
[2020-03-15] MEDS: Ondansetron 8 MG Tablet PO (15:47)
[2020-03-15] MEDS: traZODone 100 MG Tablet PO (20:30)
[2020-03-15] MEDS: Nicotine Polacrilex 2 MG GUM PO (22:20)
[2020-03-16] MEDS: hydrOXYzine PAM 25 MG Capsule 50 MG PO (00:41)
[2020-03-16] MEDS: Gabapentin 300 MG Capsule PO (01:19)
[2020-03-16] MEDS: Phenobarbital 32.4 MG Tablet 64.8 MG PO (01:19)
--- NOTE | 2020-03-16 01:20 | NURSING ---
Pt states she is still feeling anxious after Vistaril so Neurontin given.
[2020-03-16 03:24] VITALS: BP 124/74; PULSE 100; RESP 16; TEMP 36.9; O2SAT 99
[2020-03-16] MEDS: LORazepam 1 MG Tablet PO (04:06)
--- NOTE | 2020-03-16 07:34 | DCINST_ITS ---
- Discharge Diagnoses Current Active Problems: Current Active and Chronic Problems Alcohol withdrawal (Acute) Acute alcohol withdrawal (Acute) Alcohol abuse (Chronic) Opiate addiction (Chronic) History of heroin abuse (Chronic) Tobacco use (Chronic) Anxiety and depression (Chronic) Allergies/Adverse Reactions: Allergies amoxicillin Allergy (Verified 03/13/20 01:09) Rash Medications to take at Discharge Multivitamins,Therapeutic [Multivitamin] 1 tablet PO DAILYCM 02/15/18 traZODone [Desyrel] 50 mg PO QHS PRN 02/15/18 Clonidine HCl 0.1 mg PO BID 03/13/20 Primary Care Physician: Care Physician,No Primary [Primary Care Provider] - Test Results: Test results from this visit will be discussed in further detail at your follow- up appointment, if applicable.
[2020-03-16 08:57] VITALS: BP 105/61; PULSE 80; RESP 18; TEMP 36.6; O2SAT 98
--- NOTE | 2020-03-16 10:10 | DCINST_ITS ---
- Discharge Diagnoses Current Active Problems: Current Active and Chronic Problems Alcohol withdrawal (Acute) Acute alcohol withdrawal (Acute) Alcohol abuse (Chronic) Opiate addiction (Chronic) History of heroin abuse (Chronic) Tobacco use (Chronic) Anxiety and depression (Chronic) You will use the following diet at home:: No restrictions Allergies/Adverse Reactions: Allergies amoxicillin Allergy (Verified 03/13/20 01:09) Rash Medications to take at Discharge Multivitamins,Therapeutic [Multivitamin] 1 tablet PO DAILYCM 02/15/18 traZODone [Desyrel] 50 mg PO QHS PRN 02/15/18 Clonidine HCl 0.1 mg PO BID 03/13/20 Primary Care Physician: Care Physician,No Primary [Primary Care Provider] - Test Results: Test results from this visit will be discussed in further detail at your follow- up appointment, if applicable. Proposed Discharge Date: 03/16/20
[2020-03-16] MEDS: Folic Acid 1 MG Tablet PO (10:12)
[2020-03-16] MEDS: cloNIDine HCl 0.1 MG Tablet PO (10:12)
--- NOTE | 2020-03-16 10:12 | PCM.DC.SUM ---
Discharge Date and Diagnosis - Problem List Patient Problems: Active and Suspected Problems Alcohol withdrawal (Acute) Acute alcohol withdrawal (Acute) Date of Admission: 03/13/20 Date of Discharge: 03/16/20 - Primary Discharge Diagnosis Acute Problems: Active Problems Alcohol withdrawal (Acute) Acute alcohol withdrawal (Acute) - Secondary Discharge Diagnosis Chronic Problems: Chronic Problems Alcohol abuse (Chronic) Opiate addiction (Chronic) History of heroin abuse (Chronic) Tobacco use (Chronic) Anxiety and depression (Chronic) Hospital Course and Treatment Operations: None Summary of Care Provided: The patient is a 34 year old F history of polysubstance abuse admitted with acute alcohol withdrawal Acute alcohol withdrawal patient admitted to regular nursing floor managed with phenobarb taper with improvement in his symptoms. Patient was discharged to [facility] residential program on 03/16/2020 continue with her recuperation Polysubstance abuse ?Counseled on cessation Tobacco dependence - Counseled on cessation, offered nicotine patch for tobacco cravings DVT prophylaxis ?Low risk Patient Problems: Active and Suspected Problems Alcohol withdrawal (Acute) Acute alcohol withdrawal (Acute) - Physical Exam Vitals/I&O's: Vital Signs Temp Pulse Resp BP Pulse Ox 97.9 F 80 18 105/61 98 03/16/20 08:57 03/16/20 08:57 03/16/20 08:57 03/16/20 08:57 03/16/20 08:57 Oxygen Delivery Method Room Air Weight: 61.1 kg Body Mass Index (BMI) 24.6 Intake and Output for Last 24 Hours 03/14/20 03/15/20 03/16/20 23:59 23:59 23:59 Intake Total 1240 / 1740 900 / 900 Balance 1240 / 1740 900 / 900 General: Cooperative Lungs: Normal air movement Neurological: Neuro grossly intact Current Medications Clonidine (Clonidine Hcl 0.1 Mg Tablet) 0.1 mg PO BID [facility] Last Admin: 03/15/20 20:29 Dose: 0.1 mg Documented by: Dicyclomine HCl (Dicyclomine 10 Mg Capsule) 20 mg PO Q6H PRN PRN PRN Reason: abdominal discomfort Last Admin: 03/15/20 15:47 Dose: 20 mg Documented by: Folic Acid (Folic Acid 1 Mg Tablet) 1 mg PO DAILY@0800 [facility] Last Admin: 03/15/20 09:14 Dose: 1 mg Documented by: Gabapentin (Gabapentin 300 Mg Capsule) 300 mg PO Q8H PRN PRN PRN Reason: moderate to severe anxiety Last Admin: 03/16/20 01:19 Dose: 300 mg Documented by: Hydroxyzine Pamoate (Hydroxyzine Yadi 25 Mg Capsule) 50 mg PO Q4H PRN PRN PRN Reason: mild anxiety Last Admin: 03/16/20 00:41 Dose: 50 mg Documented by: Ibuprofen (Ibuprofen 600 Mg Tablet) 600 mg PO Q8H PRN PRN PRN Reason: Pain Score 1-10 Last Admin: 03/15/20 04:04 Dose: 600 mg Documented by: Loperamide HCl (Loperamide 2 Mg Capsule) 2 mg PO Q4H PRN PRN PRN Reason: LOOSE STOOLS Nicotine (Nicotine 21 Mg Patch) 21 mg TD DAILY [facility] Last Admin: 03/15/20 09:14 Dose: 21 mg Documented by: Nicotine Polacrilex (Nicotine Polacrilex 2 Mg Gum) 2 mg PO Q4H PRN PRN PRN Reason: Nicotine Craving Last Admin: 03/15/20 22:20 Dose: 2 mg Documented by: Ondansetron HCl (Ondansetron 8 Mg Tablet) 8 mg PO Q8H PRN PRN PRN Reason: NAUSEA Last Admin: 03/15/20 15:47 Dose: 8 mg Documented by: Phenobarbital (Phenobarbital 32.4 Mg Tablet) 64.8 mg PO Q6H DARYL; Taper Stop: 03/17/20 13:59 Last Admin: 03/16/20 09:03 Dose: Not Given Documented by: Senna (Senna Tablet) 2 tablet PO QHS PRN PRN Reason: Constipation Sodium Chloride (0.9% Saline Lock 10 Ml Syringe) 10 - 40 ml IV UD PRN PRN Reason: SALINE FLUSH Last Admin: 03/13/20 05:59 Dose: 10 ml Documented by: Thiamine HCl (Thiamine Hydrochloride 100 Mg Tablet) 100 mg PO DAILYCM DARYL Last Admin: 03/15/20 09:14 Dose: 100 mg Documented by: Trazodone HCl (Trazodone 100 Mg Tablet) 100 mg PO QHS PRN PRN Reason: INSOMNIA Last Admin: 03/15/20 20:30 Dose: 100 mg Documented by: Discharge Diet: No Restrictions Discharge Activity: Return to Normal Activity Home Medications: Medications to take at Discharge Multivitamins,Therapeutic [Multivitamin] 1 tablet PO DAILYCM 02/15/18 traZODone [Desyrel] 50 mg PO QHS PRN 02/15/18 Clonidine HCl 0.1 mg PO BID 03/13/20 Primary Care Physician: Care Physician,No Primary [Primary Care Provider] - Disposition: Home Minutes spent on discharge:: 35 Patient Condition:: Stable Medical Necessity - Tobacco Use Smoking Status: Current every day smoker Tobacco Use: Cigarettes Meaningful Use Info Meaningful Use Diagnoses (Choose all that apply): None applicable Inpatient E&M: 28549 Disch Hosp
[2020-03-16] MEDS: Thiamine Hydrochloride 100 MG Tablet PO (10:13)
--- NOTE | 2020-03-16 10:18 | NURSING ---
pt aware appropriate at this time, more cooperative. meds given. ciwa completed. pt requesting tray be resent as slept through tray this am and dietary removed it. Dietary called. discussed discharge plans with patient.
[2020-03-16 11:02] VITALS: BP 102/69; PULSE 80; RESP 18; TEMP 36.9; O2SAT 100
--- NOTE | 2020-03-16 11:11 | NURSING ---
rena [employer] girls swimming coach to room to transport pt to residential. pt with discharge packet
== END 2020-03-16 11:20 | DRG 773 ==
LOC: ED 02:54 → MS3 03:25
PROVIDERS: Admitting Provider Hospitalist; Emergency Provider Emergency Medicine; Visit Provider Internal Medicine
DX: F10.239 Alcohol dependence with withdrawal, unspecified (principal); F41.9 Anxiety disorder, unspecified; F32.9 Major depressive disorder, single episode, unspecified; Y90.3 Blood alcohol level of 60-79 mg/100 ml; I10 Essential (primary) hypertension; F11.10 Opioid abuse, uncomplicated; F17.210 Nicotine dependence, cigarettes, uncomplicated; F19.10 Other psychoactive substance abuse, uncomplicated; Z88.0 Allergy status to penicillin
CPT/HCPCS: 80053; 80307; 80320; 84703; 85025; 99285; A4216; G0480

== ENCOUNTER 2020-04-19 19:21 | Inpatient (IN) | payer MEDICAID, SELFPAY ==
[2020-03-13 03:56] VITALS: BMI 24.6
--- NOTE | 2020-04-18 06:13 | EKG12_ITS ---
Test Reason : SUBSTANCE ABUSE Blood Pressure : / mmHG Vent. Rate : 106 BPM Atrial Rate : 106 BPM P-R Int : 146 ms QRS Dur : 084 ms QT Int : 356 ms P-R-T Axes : 004 030 020 degrees QTc Int : 472 ms Sinus tachycardia Low voltage QRS Borderline ECG Confirmed by JEAN-PIERRE DIAZ, VELMA ([id number]), city editor RON MCKEON ([id number]) on 04/23/2020 1:17:45 PM Referred By: Confirmed By:VELMA MOREJON MD
[2020-04-19 19:22] VITALS: BP 118/91; PULSE 134; RESP 18; TEMP 36.7; O2SAT 94; BMI 23.9
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
--- NOTE | 2020-04-19 20:06 | RAD_ITS ---
HISTORY: PATIENT CAME TO ED FOR DETOX EXAM: XR Chest 1 View: COMPARISON: None FINDINGS: # of images incl. paperwork: 1 Lungs are clear. Heart is not enlarged. No acute osseous pathology perceived. Pulmonary vascularity is distinct. No effusions. RAD/Chest 1 View (Portable) IMPRESSION: Normal. at 0003 Reported and signed by: Napoleon Zhu MD Electronically Signed: Napoleon Zhu MD at 0:01 EST Tel , Service support ,
[2020-04-19 20:37] LABS: Internal QC Validated? YES +Cl - CLEAR BKGD; Pregnancy, Serum, hCG Quali. NEGATIVE Negative
[2020-04-19 20:42] LABS: ALB/GLOB Ratio 0.9 RATIO (0.9-2.4); AST(SGOT) 152 U/L (15-37); Alanine Aminotransfer ALT/SGPT 87 U/L (13-56); Albumin, Serum 3.6 g/dL (3.2-5.0); Alkaline Phosphatase 143 U/L (45-117); Anion Gap 8 (5-15); BUN 10 mg/dL (7-18); BUN/Creat Ratio 21.3 RATIO (10-20); Calcium,Total 8.4 mg/dL (8.5-10.1); Chloride 112 mmol/L (98-107); Creatinine, Serum 0.47 mg/dL (0.55-1.02); EST Glomerular Filtration Rate 160 mL/min (>60); Est Glom Filt Rate - Afr Amer 194 mL/min (>60); Estimated Creatinine Clearance 139.52 ml/min; Globulin 3.9 g/dL (2.2-4.2); Glucose 123 mg/dL (74-106); Lipase 564 U/L (73-393); Potassium 3.2 mmol/L (3.5-5.1); Protein, Total 7.5 g/dL (6.4-8.2); Sodium Level 145 mmol/L (136-145)
[2020-04-19 20:44] LABS: Absolute Lymphocyte Count 1.99 X10^3/uL (0.83-4.51); Absolute Neutrophil Count 2.5 X10^3/uL (2.0-7.7); Basophil# 0.04 X10^3/uL; Basophil% 0.8 % (0-1); Eosinophil# 0.05 X10^3/uL; Hematocrit 36.5 % (37-47); Hemoglobin 12.3 g/dL (12.0-15.0); Lymphocyte # 1.99 X10^3/ul (4.0); Lymphocyte % 38.1 % (19-41); Mean Corp Hgb Conc 33.7 g/dL (32-36); Mean Corpuscular Hgb 34.6 pg (27.0-32.0); Mean Corpuscular Volume 102.5 fL (81-99); Mean Platelet Vol. 8.5 fl (6.2-12.0); Monocyte# 0.64 X10^3/uL; Monocyte% 12.3 % (0-10); NRBC Flagged by Analyzer 0 % (0-5); Neutrophil # 2.47 X10^3/uL (2.7-7.7); Neutrophil % 47.2 % (47-70); Platelet Count 214 K/mm3 (150-450); RBC Distribution Width CV 14.8 % (11.6-14.6); RBC Distribution Width SD 56.3 fl (35.1-43.9); Red Blood Count 3.56 M/mm3 (4.2-5.4); White Blood Count 5.2 K/mm3 (4.4-11.0)
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
[2020-04-19] MEDS: 0.9% Normal Saline 1,000 ML 1000 ML IV (22:10)
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
--- NOTE | 2020-04-19 22:12 | ED.RN ---
pt reports wanting a sane exam, sane nurse was called in exam was started. broker in charge called in to interview pt. sane exam is now being continued.
[2020-04-19 22:15] VITALS: BP 112/76; PULSE 100; RESP 18; TEMP 36.7; O2SAT 99
[2020-04-19 22:41] LABS: Mucous, Urine 0 SEEN /hpf (<or=2+)
[2020-04-19 22:44] LABS: Color, Urine Yellow (Yellow); Glucose, Dipstick Normal (Normal); Ketone-Dipstick Negative (Negative); Leukocyte Esterase-Dipstick 500 /ul (Negative); Nitrite-Dipstick Positive (Negative); Occult Blood-Urine 150 /ul (Negative); Protein-Dipstick 30 mg/dl (Negative); Specific Gravity, Urine 1.025 (1.002-1.030); Urine Bilirubin Dipstick Negative (Negative); Urine Clarity Cloudy (Clear); Urine Urobilinogen Normal (Normal)
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
[2020-04-19 22:56] LABS: Bacteria 2+ /hpf (None Seen); Red Blood Cells-Urine 0-5 SEEN /hpf (0-5); Squamous Epithelial Cells - UA 0-5 SEEN /hpf (5-10); White Blood Cells 5-10 SEEN /hpf (0-5)
[2020-04-19 23:01] LABS: Amphetamine Urine VISTA NEGATIVE (<1000 ng/mL); Barbiturate Urine VISTA NEGATIVE (< 200 ng/mL); Benzodiazepine Urine VISTA NEGATIVE (< 200 ng/mL); Cocaine Urine VISTA NEGATIVE (< 300 ng/mL); Ecstacy Urine VISTA NEGATIVE (< 500 ng/mL); Methadone Urine VISTA NEGATIVE (< 300 ng/mL); PCP Urine VISTA NEGATIVE (< 25 ng/mL); THC Urine VISTA POSITIVE (< 50 ng/mL); Vista UDS pH Range 5
[2020-04-20] VITALS (8 sets, daily range): BP systolic 112–143; BP diastolic 76–95; PULSE 87–118; RESP 14–19; TEMP 36.7–37.1; O2SAT 95–99; BMI 25.5
--- NOTE | 2020-04-20 00:12 | NURSING ---
Patient signed agreement for admission to the program and verbally reviewed and highlighted form for patient. She states she is agreeable.
[2020-04-20] MEDS: Lactated Ringers 1,000 ML 200 ML IV ×2 (00:55→04:29)
[2020-04-20] MEDS: Pantoprazole Sodium 40 MG Tablet PO ×2 (00:55→08:36)
[2020-04-20] MEDS: traZODone 100 MG Tablet PO ×2 (00:55→21:12)
[2020-04-20] MEDS: Gabapentin 300 MG Capsule PO ×2 (00:56→17:36)
[2020-04-20] MEDS: Phenobarbital 32.4 MG Tablet 64.8 MG PO ×6 (00:56→21:12)
[2020-04-20] MEDS: 0.9% Saline Lock 10 ML Syringe IV (04:25)
[2020-04-20] MEDS: hydrOXYzine PAM 25 MG Capsule 50 MG PO ×3 (04:25→22:07)
[2020-04-20] MEDS: cloNIDine HCl 0.1 MG Tablet PO ×3 (05:10→21:11)
[2020-04-20 08:05] LABS: ALB/GLOB Ratio 0.8 RATIO (0.9-2.4); AST(SGOT) 92 U/L (15-37); Alanine Aminotransfer ALT/SGPT 64 U/L (13-56); Albumin, Serum 2.7 g/dL (3.2-5.0); Alkaline Phosphatase 108 U/L (45-117); Anion Gap 6 (5-15); BUN 8 mg/dL (7-18); BUN/Creat Ratio 20.1 RATIO (10-20); Calcium,Total 8.3 mg/dL (8.5-10.1); Chloride 109 mmol/L (98-107); EST Glomerular Filtration Rate 194 mL/min (>60); Est Glom Filt Rate - Afr Amer 234 mL/min (>60); Estimated Creatinine Clearance 163.93 ml/min; Globulin 3.4 g/dL (2.2-4.2); Glucose 121 mg/dL (74-106); Magnesium 1.9 mg/dL (1.6-2.6); Potassium 3.3 mmol/L (3.5-5.1); Protein, Total 6.1 g/dL (6.4-8.2); Sodium Level 141 mmol/L (136-145)
[2020-04-20 08:36] LABS: Vitamin B12 386 pg/mL (211-911)
[2020-04-20] MEDS: Thiamine Hydrochloride 100 MG Tablet PO (08:36)
[2020-04-20] MEDS: Folic Acid 1 MG Tablet PO (08:36)
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
--- NOTE | 2020-04-20 17:34 | PCA ---
THE LICENSED PRACTICAL NURSE ON THIS PATIENT CASE FROM [facility] GAVE ME A NUMBER FOR A [facility] THAT IN CASE IF THE PATIENT IS DISCHARGED THIS WEEKEND WHEN HE ISNT IN HIS OFFICE SHE CAN CALL TO GO TO FOR SAFETY. NUMBER IS [phone]. THE PATIENT WAS GIVEN THIS NUMBER ALSO.
[2020-04-21 01:09] VITALS: BP 108/77; PULSE 85; RESP 16; TEMP 36.6; O2SAT 100
[2020-04-21] MEDS: Phenobarbital 32.4 MG Tablet 64.8 MG PO ×3 (01:12→08:41)
[2020-04-21 05:46] VITALS: BP 96/60; PULSE 70; RESP 16; TEMP 36.7; O2SAT 99
[2020-04-21] MEDS: hydrOXYzine PAM 25 MG Capsule 50 MG PO (05:50)
[2020-04-21 08:02] LABS: ALB/GLOB Ratio 0.7 RATIO (0.9-2.4); AST(SGOT) 133 U/L (15-37); Alanine Aminotransfer ALT/SGPT 86 U/L (13-56); Albumin, Serum 2.8 g/dL (3.2-5.0); Alkaline Phosphatase 118 U/L (45-117); Anion Gap 8 (5-15); BUN 7 mg/dL (7-18); BUN/Creat Ratio 12.8 RATIO (10-20); Calcium,Total 8.9 mg/dL (8.5-10.1); Chloride 104 mmol/L (98-107); Creatinine, Serum 0.55 mg/dL (0.55-1.02); EST Glomerular Filtration Rate 134 mL/min (>60); Est Glom Filt Rate - Afr Amer 163 mL/min (>60); Estimated Creatinine Clearance 119.22 ml/min; Globulin 3.9 g/dL (2.2-4.2); Glucose 160 mg/dL (74-106); Potassium 2.8 mmol/L (3.5-5.1); Protein, Total 6.7 g/dL (6.4-8.2); Sodium Level 139 mmol/L (136-145)
[2020-04-21] MEDS: Folic Acid 1 MG Tablet PO (08:42)
[2020-04-21] MEDS: Thiamine Hydrochloride 100 MG Tablet PO (08:42)
[2020-04-21] MEDS: Pantoprazole Sodium 40 MG Tablet PO (08:42)
[2020-04-21 09:40] VITALS: O2SAT 99
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
[2020-04-21 10:45] VITALS: BP 105/85; PULSE 85; RESP 18; TEMP 37.2; O2SAT 98
--- NOTE | 2020-04-21 12:42 | NURSING ---
PT left AMA at 1240. She asked if she could come back to the ER, nurse answered yes, but it is not certain they will admit you.
== END 2020-04-21 12:41 | disposition left against medical advice (07) | DRG 770 ==
LOC: ED 20:32 → MS3 22:55
PROVIDERS: Admitting Provider Hospitalist; Emergency Provider Emergency Medicine; Visit Provider Family Medicine
DX: F10.239 Alcohol dependence with withdrawal, unspecified (principal); F32.9 Major depressive disorder, single episode, unspecified; F41.9 Anxiety disorder, unspecified; F11.20 Opioid dependence, uncomplicated; F12.10 Cannabis abuse, uncomplicated; F17.210 Nicotine dependence, cigarettes, uncomplicated; Z81.3 Family history of other psychoactive substance abuse and dependence; Z81.8 Family history of other mental and behavioral disorders; T76.11XA Adult physical abuse, suspected, initial encounter; Y90.8 Blood alcohol level of 240 mg/100 ml or more; K85.90 Acute pancreatitis without necrosis or infection, unspecified; K29.70 Gastritis, unspecified, without bleeding; E87.6 Hypokalemia
CPT/HCPCS: 36415; 71045; 80053; 80307; 81001; 82077; 82607; 82746; 83690; 83735; 84703; 85025; 93005; 99283; 99406; J7030; J7120; A4216

== ENCOUNTER 2020-04-19 20:33 | Outpatient (REF) | payer SELFPAY ==
[2020-04-19 19:22] VITALS: BMI 23.9
== END 2020-04-19 23:50 | disposition home or self-care (01) ==
LOC: EDREF 20:33
DX: Z04.41 Encounter for examination and observation following alleged adult rape (principal)

== ENCOUNTER 2020-05-24 15:30 | Inpatient (IN) | payer MEDICAID, SELFPAY ==
[2020-04-20 00:50] VITALS: BMI 25.5
[2020-05-24] VITALS (10 sets, daily range): BP systolic 106–133; BP diastolic 58–93; PULSE 89–122; RESP 17–20; TEMP 36.5–37.1; O2SAT 89–98; BMI 23.1
[2020-05-24] MEDS: 0.9% Normal Saline 1,000 ML 1000 ML IV (15:41)
[2020-05-24 15:46] LABS: Absolute Lymphocyte Count 1.84 X10^3/uL (0.83-4.51); Absolute Neutrophil Count 2.4 X10^3/uL (2.0-7.7); Basophil# 0.05 X10^3/uL; Eosinophil# 0.04 X10^3/uL; Eosinophils% 0.8 % (0-5); Hematocrit 42.6 % (37-47); Hemoglobin 14.3 g/dL (12.0-15.0); Lymphocyte # 1.84 X10^3/ul (4.0); Mean Corp Hgb Conc 33.6 g/dL (32-36); Mean Corpuscular Volume 104.4 fL (81-99); Mean Platelet Vol. 8.2 fl (6.2-12.0); Monocyte% 10.3 % (0-10); NRBC Flagged by Analyzer 0 % (0-5); Neutrophil # 2.39 X10^3/uL (2.7-7.7); Neutrophil % 49.5 % (47-70); Platelet Count 164 K/mm3 (150-450); RBC Distribution Width CV 13.8 % (11.6-14.6); Red Blood Count 4.08 M/mm3 (4.2-5.4); White Blood Count 4.8 K/mm3 (4.4-11.0)
[2020-05-24] MEDS: LORazepam 2 MG/ML Syringe 1 MG IV (15:49)
[2020-05-24 16:02] LABS: ALB/GLOB Ratio 0.9 RATIO (0.9-2.4); AST(SGOT) 260 U/L (15-37); Alanine Aminotransfer ALT/SGPT 108 U/L (13-56); Albumin, Serum 3.7 g/dL (3.2-5.0); Alkaline Phosphatase 123 U/L (45-117); Anion Gap 16 (5-15); BUN 10 mg/dL (7-18); BUN/Creat Ratio 16.7 RATIO (10-20); Calcium,Total 8.1 mg/dL (8.5-10.1); Chloride 104 mmol/L (98-107); EST Glomerular Filtration Rate 121 mL/min (>60); Est Glom Filt Rate - Afr Amer 147 mL/min (>60); Estimated Creatinine Clearance 132.02 ml/min; Glucose 119 mg/dL (74-106); Potassium 3.1 mmol/L (3.5-5.1); Protein, Total 7.7 g/dL (6.4-8.2); Sodium Level 142 mmol/L (136-145)
--- NOTE | 2020-05-24 16:17 | ED.RN ---
ETOH 613 PER LAB
--- NOTE | 2020-05-24 16:33 | ED.DCSUM_ITS ---
- ER Visit Summary Date of Service: 05/24/20 Chief Complaint: Alcohol withdrawal History of Present Illness: The patient is a 35 F who is here for alcohol withdrawal and detox. She said she drank half pint of alcohol today. In the past, she was drinking a gallon of vodka per day. She denies any drug use, but has used opioids in the past. No other complaints at this time. No suicidal or homicidal thoughts. Patient does have a history of withdrawal seizures and DTs. Physical Examination: Tachycardic. Otherwise vitals unremarkable. Afebrile. Patient is tearful and appears depressed. Heart is tachycardic but regular. Lungs are clear. Abdomen is soft and nontender. Skin is normal in color. Test Results: CBC unremarkable. Potassium 3.1, glucose 119, alkaline phosphatase 123, ALT 108, AST 260. Alcohol 613. Tox screen and hCG pending. Emergency Department Course and Treatment: Patient placed on the monitor. Treated with IV fluids and Ativan. No seizure activity here. She is resting comfortably on reevaluation. Hospitalist was contacted, and will be admitting the patient to [facility]. Treatment Plan: As above Disposition: Admission Impression: Alcohol withdrawal This note was generated with [employer] dictation software. It may contain incorrect words, spelling, and punctuation that were not noted in review of the chart prior to signing ED Disposition - Plan for ED Patient: Referrals: Care Physician,No Primary [Primary Care Provider] -
--- NOTE | 2020-05-24 17:01 | ED.RN ---
Pt unable to sign contract at this time. Pt is too intoxicated and was medicated prior to admission. floor is aware that when she starts to sober up she needs to sign the contract or be out of the ramp program.
--- NOTE | 2020-05-24 17:34 | HP.PCM_ITS ---
Problem List (1) Alcohol abuse Status: Acute (2) History of heroin abuse Status: Chronic (3) Tobacco use Status: Chronic (4) Anxiety and depression Status: Chronic History of Present Illness Date of Admission: 05/24/20 Chief Complaint: Requesting EtOH Detox The patient is a 35 y/o F w/ PMHx: Tobacco use, Hx of heroin abuse/IVDA (intermittently clean, denied current usage) previously on suboxone while remotely, Anxiety and depression, EtOH abuse (1-1.5 [address] vodka daily) with EtOH withdrawal history who presents to the [facility] ED on 05/24/20 with history of requested alcohol detoxification, most recently admitted approximately 1 month prior noting significant interest again with last intake approximately 1/2 pint early a.m. prior to ED presentation with complaints of mild nausea, tremors and agitation. In the ED patient secondary to symptoms was given Ativan 1 mg IV x1 per ED physician and following this was very fatigued and lethargic therefore examination was limited with questioning. Work-up in the ED included T 97.7, heart rate 112, BP 133/93, respiratory rate 17, 95% on room air however patient following Ativan 1 mg IV dosing per ED physician did have some mild hypoxia noted to be 89% on room air with improvement to 97% on 2 L nasal cannula, CBC with WC 4.8, hemoglobin 14.3, platelet 164 without marked shift, CMP with potassium 3.1, glucose 119, total bilirubin 0.30, AST/ALT 260/108, alk phos 123, ethyl alcohol level 613, currently urine and urine drug screen pending per ED. In the ED patient administered Ativan 1 mg IV x1. Past Medical History Past Medical History (Chronic Problems): Chronic Problems Alcohol abuse (Chronic) Opiate addiction (Chronic) History of heroin abuse (Chronic) Tobacco use (Chronic) Anxiety and depression (Chronic) Allergies amoxicillin Allergy (Verified 05/24/20 15:31) Rash Penicillins Allergy (Verified 05/24/20 15:31) Rash Home Medications: Ambulatory Orders Medication Instructions Recorded Multivitamins,Therapeutic 1 tablet PO DAILYCM 02/15/18 [Multivitamin] Gabapentin 600 mg PO BID 04/20/20 Surgical History: tonsillectomy Psychiatric History: Anxiety, Depression INTEGRITY ANALYST History: No pertinent INTEGRITY ANALYST history Lives: With Family Smoking Status: Current every day smoker Tobacco Use: Cigarettes Alcohol: Heavy - Approximately 1 to 1.5 gallon grocery [address] vodka daily. Drugs: Heroin - Patient with intermittent history of heroin usage, currently denying but previous recent admissions with positive usage again. Urine drug screen pending. - *Family History Maternal History Items: - - Maternal family history of depression; bipolar; drug addiction and ethanol addiction. Paternal History Items: - - Denies knowledge of paternal medical history. Review of Systems Constitutional: Reports: Malaise, Weakness, Fatigue. Denies: Chills, Fever, Weight Change HEENT: Denies: Head Aches, Sinus Congestion, Sinus Drainage Cardiovascular: Denies: Chest Pain, Palpitations Respiratory: Denies: Cough, Shortness of breath at rest, Sputum production Gastrointestinal: Denies: Abdominal Pain, Nausea, Vomiting Genitourinary: Denies: Dysuria Musculoskeletal: Denies: Joint Pain, Joint Tenderness Skin: Denies: Rash, Wounds Neurological: Reports: Tremor. Denies: Focal weakness, Numbness, Tingling Psychiatric: Reports: Anxiety, Depression. Denies: Homicidal Ideations, Suicidal Ideations Hematologic/ Lymphatic: Denies: Easy Bruising, Easy Bleeding VTE Information - Inpt Only VTE Present on Admission: No VTE Mechan Device Prophylaxis: None VTE Pharm Prophylaxis ordered?: No Reason prophylaxis not ordered:: Treatment Not Indicated Subjective: Patient laying in the ED bed, recent Ativan administration, more lethargic, awakens to some stimuli. Objective: Physical Examination: General: Patient with recent Ativan administration, will awaken to some stimuli but less alert and not answering orientation questions as well, remains cooperative, laying in the ED bed, no acute distress currently. Skin: normal color, turgor, no icterus, cyanosis set occasional staged ecchy elodia. HEENT: AT/NC, EOMI, PERRLA, dry MM, no carotid bruits or JVD noted. Lungs: Diminished breath sounds, greater bases, moderate effort, no rales, ronchi or wheezing. Heart: Tachycardic with regular rhythm; no gallop, rub audible. Abdomen: soft, NTTP, ND, normal BS, positive HM. Extremities: no cyanosis, clubbing, or edema. Neurological: Patient with recent Ativan administration, will awaken to some stimuli but less alert and not answering orientation questions well, cognitive function therefore decreased from her baseline; pupils equally reactive to light and accomodation; cranial nerves II-XII grossly normal, moving all 4 extremities limited given recent sedated regimen, strength accordingly severely globally decreased, no obvious tremors but again recent sedate of medications. Psychiatric: affect appears flat, sedate, recent Ativan administration, no acute evidence of depressive or anxiety feelings. - Physical Exam Vitals/I&O's: Vital Signs Temp Pulse Resp BP Pulse Ox 98.1 F 89 17 106/70 97 05/24/20 17:00 05/24/20 17:00 05/24/20 17:00 05/24/20 17:00 05/24/20 17:05 Oxygen Flow Rate (L/min) 2 Oxygen Delivery Method Nasal Cannula Weight: 151 lb 10.848 oz Body Mass Index (BMI) 23.1 Intake and Output for Last 24 Hours 05/22/20 05/23/20 05/24/20 23:59 23:59 23:59 Intake Total 1000 / 1000 Balance 1000 / 1000 Laboratory Results 05/24/20 15:35: WBC 4.8, RBC 4.08 L, Hgb 14.3, Hct 42.6, MCV 104.4 H, MCH 35.0 H , MCHC 33.6, RDW Std Deviation 54.0 H, RDW Coeff of Taylor 13.8, Plt Count 164, MPV 8.2, Immature Gran % (Auto) 0.400, Neut % (Auto) 49.5, Lymph % (Auto) 38.0, [place] % (Auto) 10.3 H, Eos % (Auto) 0.8, Baso % (Auto) 1.0, Absolute Neuts (auto) 2.4, Absolute Lymphs (auto) 1.84, Nucleated RBC % 0 05/24/20 15:35: Sodium 142, Potassium 3.1 L, Chloride 104, Carbon Dioxide 22.0, Anion Gap 16 H, BUN 10, Creatinine 0.60, Estim Creat Clear Calc 132.02, Est GFR (MDRD) Af Amer 147, Est GFR (MDRD) Non-Af 121, BUN/Creatinine Ratio 16.7, Glucose 119 H, Calcium 8.1 L, Total Bilirubin 0.30, AST 260 H, ALT 108 H, Alkaline Phosphatase 123 H, Total Protein 7.7, Albumin 3.7, Globulin 4.0, Albumin/Globulin Ratio 0.9 05/24/20 15:35: Ethyl Alcohol 613.0 H* Assessment/Plan All Active Problems Alcohol abuse (Acute) Acute alcohol withdrawal (Acute) The patient is a 35 y/o F w/ PMHx: Tobacco use, Hx of heroin abuse/IVDA previously on suboxone while remotely, Anxiety and depression, EtOH abuse with EtOH withdrawal history who presents to the [facility] ED on 05/24/20 with history of requested alcohol detoxification, most recently admitted approximately 1 month prior noting significant interest again. 1. Acute EtOH Withdrawal w/ Hx Prior DT: Admitted to [facility], maintain on telemetry given DT history w/ recent decreased EtOH, routine labs obtained, testing pending as well as UDS as noted, will initiate and continue on protocol with taper course of Phenobarbital, scheduled gabapentin for seizure prophylaxis, as needed Catapres, Bentyl, Vistaril, IV fluids, IV antiemetics, Tylenol as needed for pain. Will consult Case management for assistance for transition to next level of rehabilitation care. Mag, phos pending. Maintain on CIWA protocol concurrently. 2. Anxiety and Depression, Untreated: Patient with prior usage of sertraline and other medications however upon current presentation appears she is not on any regimen, awaiting clarification. Case management consulted with 180 and would benefit from consideration of regimen as well as counseling. 3. History of Heroin Abuse, Hx IVDA: Patient previously clean however during more recent admissions she has been noting to use again, current presentation with ED physician notes she has been clean again, requested HIV and hepatitis panel. Case management consulted as noted. 4. Tobacco Abuse: Encouraged cessation, inpatient consultation per RT, NR if desired. 5. Hypokalemia: Admission K+ 3.1, supplementation given, repeat level in AM. 6. DVT Prophylaxis: Low risk, encourage ambulation once more alert. Inpatient E&M: 00230 Init Hosp L3
[2020-05-24 18:49] LABS: Magnesium 2.3 mg/dL (1.6-2.6); Phosphorus 3.8 mg/dL (2.5-4.9)
[2020-05-24 19:03] LABS: Internal QC Validated? YES +Cl - CLEAR BKGD; Pregnancy, Urine Negative Negative
[2020-05-24 19:19] LABS: HIV - WCH Non-Reactive (Nonreactive)
--- NOTE | 2020-05-24 19:27 | CM.ED ---
Social Work Consult: Substance Abuse Referral source: Self Referral due to reason for ED visit Telephone call to [facility]. Marci updated on patient admission to [facility] program. This social media sr strategy manager unable to meet with patient prior to admission to acute care unit. Lorelei to see patient tomorrow. Queta HENDRICKS, VERONICA
[2020-05-24 19:28] LABS: Amphetamine Urine VISTA NEGATIVE (<1000 ng/mL); Barbiturate Urine VISTA NEGATIVE (< 200 ng/mL); Benzodiazepine Urine VISTA NEGATIVE (< 200 ng/mL); Cocaine Urine VISTA NEGATIVE (< 300 ng/mL); Ecstacy Urine VISTA NEGATIVE (< 500 ng/mL); Methadone Urine VISTA NEGATIVE (< 300 ng/mL); PCP Urine VISTA NEGATIVE (< 25 ng/mL); THC Urine VISTA NEGATIVE (< 50 ng/mL); Vista UDS pH Range 6
[2020-05-24] MEDS: Lactated Ringers 1,000 ML 125 ML IV (20:28)
[2020-05-24] MEDS: traZODone 100 MG Tablet PO (20:28)
[2020-05-24] MEDS: Phenobarbital 32.4 MG Tablet 64.8 MG PO ×2 (20:28→23:15)
[2020-05-24] MEDS: Potassium Chloride Oral Tablet 20 MEQ 40 MEQ PO (20:28)
[2020-05-24] MEDS: Ibuprofen 600 MG Tablet PO (20:28)
[2020-05-24] MEDS: Gabapentin 300 MG Capsule PO (20:36)
[2020-05-24] MEDS: hydrOXYzine PAM 25 MG Capsule 50 MG PO (23:10)
[2020-05-24] MEDS: Acetaminophen 500 MG Tablet PO (23:15)
[2020-05-25] VITALS (12 sets, daily range): BP systolic 117–124; BP diastolic 71–91; PULSE 83–118; RESP 16; TEMP 36.7–37.2; O2SAT 93–100
[2020-05-25] MEDS: hydrOXYzine PAM 25 MG Capsule 50 MG PO ×4 (03:30→18:47)
[2020-05-25] MEDS: Acetaminophen 500 MG Tablet PO (03:30)
[2020-05-25] MEDS: Phenobarbital 32.4 MG Tablet 64.8 MG PO ×6 (03:30→23:45)
[2020-05-25 06:25] LABS: ALB/GLOB Ratio 0.9 RATIO (0.9-2.4); AST(SGOT) 132 U/L (15-37); Alanine Aminotransfer ALT/SGPT 78 U/L (13-56); Albumin, Serum 3.1 g/dL (3.2-5.0); Alkaline Phosphatase 100 U/L (45-117); Anion Gap 5 (5-15); BUN 12 mg/dL (7-18); BUN/Creat Ratio 24.9 RATIO (10-20); Calcium,Total 8.4 mg/dL (8.5-10.1); Chloride 104 mmol/L (98-107); Creatinine, Serum 0.48 mg/dL (0.55-1.02); EST Glomerular Filtration Rate 156 mL/min (>60); Est Glom Filt Rate - Afr Amer 189 mL/min (>60); Estimated Creatinine Clearance 165.02 ml/min; Globulin 3.3 g/dL (2.2-4.2); Glucose 161 mg/dL (74-106); Potassium 3.5 mmol/L (3.5-5.1); Protein, Total 6.4 g/dL (6.4-8.2); Sodium Level 138 mmol/L (136-145)
[2020-05-25] MEDS: Ibuprofen 600 MG Tablet PO (06:52)
[2020-05-25] MEDS: Gabapentin 300 MG Capsule PO ×3 (06:52→21:17)
[2020-05-25] MEDS: Folic Acid 1 MG Tablet PO (09:26)
[2020-05-25] MEDS: Thiamine Hydrochloride 100 MG Tablet PO (09:26)
--- NOTE | 2020-05-25 11:44 | PN_ITS ---
Patient Problems: Active and Suspected Problems Alcohol abuse (Acute) Subjective: Patient seen and examined. She was admitted for acute alcohol withdrawal. She has no complaints this morning. Review of systems otherwise negative. Vitals/I&O's: Vital Signs Temp Pulse Resp BP Pulse Ox 98.2 F 83 16 118/78 99 05/25/20 09:23 05/25/20 09:23 05/25/20 09:23 05/25/20 09:23 05/25/20 09:23 Oxygen Flow Rate (L/min) 2 Oxygen Delivery Method Room Air Weight: 152 lb 1.903 oz Body Mass Index (BMI) 23.1 Intake and Output for Last 24 Hours 05/23/20 05/24/20 05/25/20 23:59 23:59 23:59 Intake Total 1000 / 1000 1000 / 1000 Output Total 300 / 300 Balance 700 / 700 1000 / 1000 General: Alert, Oriented x3, Cooperative HEENT: Atraumatic, PERRLA, EOMI, Normocephalic Oral: Moist Mucosa Neck: Supple, No JVD, Negative Carotid Bruits Lungs: Clear to auscultation, Normal air movement Cardiovascular: Regular rate, No murmurs Abdomen: Bowel Sounds Present, Soft, Non Tender Extremities: No edema, Capillary Refill Less than 3 Seconds Skin: No rashes, No breakdown Musculoskeletal: No Tenderness to Palpation of Joints or Extremities Neurological: Cranial nerves II-XII grossly intact Psych/Mental Status: Normal Affect, Appropriate, Alert and oriented to time, place, person, mood and affect Laboratory Results 05/24/20 15:35: WBC 4.8, RBC 4.08 L, Hgb 14.3, Hct 42.6, MCV 104.4 H, MCH 35.0 H , MCHC 33.6, RDW Std Deviation 54.0 H, RDW Coeff of Taylor 13.8, Plt Count 164, MPV 8.2, Immature Gran % (Auto) 0.400, Neut % (Auto) 49.5, Lymph % (Auto) 38.0, [place] % (Auto) 10.3 H, Eos % (Auto) 0.8, Baso % (Auto) 1.0, Absolute Neuts (auto) 2.4, Absolute Lymphs (auto) 1.84, Nucleated RBC % 0 05/24/20 15:35: Sodium 142, Potassium 3.1 L, Chloride 104, Carbon Dioxide 22.0, Anion Gap 16 H, BUN 10, Creatinine 0.60, Estim Creat Clear Calc 132.02, Est GFR (MDRD) Af Amer 147, Est GFR (MDRD) Non-Af 121, BUN/Creatinine Ratio 16.7, Glu cose 119 H, Calcium 8.1 L, Total Bilirubin 0.30, AST 260 H, ALT 108 H, Alkaline Phosphatase 123 H, Total Protein 7.7, Albumin 3.7, Globulin 4.0, Albumin/Globulin Ratio 0.9 05/24/20 15:35: Ethyl Alcohol 613.0 H* 05/24/20 15:35: Phosphorus 3.8, Magnesium 2.3 05/24/20 15:35: Hepatitis A IgM Ab Pending, Hepatitis A Ab Total Pending, Hep Bs Antigen Pending, Hep B Core Total Ab Pending, Hep B Core IgM Ab Pending 05/24/20 15:35: HIV 1&2 Antibody Non-Reactive 05/24/20 18:45: Urine Test Negative 05/24/20 18:45: Urine Opiates Screen NEGATIVE, Urine Methadone Screen NEGATIVE, Ur Barbiturates Screen NEGATIVE, Ur Phencyclidine Scrn NEGATIVE, Ur Amphetamines Screen NEGATIVE, U Methamphetamin-MDMA NEGATIVE, U Benzodiazepines Scrn NEGATIVE, Urine Cocaine Screen NEGATIVE, U Cannabinoids Screen NEGATIVE, Ur Drug Screen Comment 05/25/20 05:35: Sodium 138, Potassium 3.5, Chloride 104, Carbon Dioxide 29.0, Anion Gap 5, BUN 12, Creatinine 0.48 L, Estim Creat Clear Calc 165.02, Est GFR (MDRD) Af Amer 189, Est GFR (MDRD) Non-Af 156, BUN/Creatinine Ratio 24.9 H, Glucose 161 H, Calcium 8.4 L, Total Bilirubin 0.50, AST 132 H, ALT 78 H, Alkaline Phosphatase 100, Total Protein 6.4, Albumin 3.1 L, Globulin 3.3, Albumin/Globulin Ratio 0.9 Current Medications Acetaminophen (Acetaminophen 500 Mg Tablet) 500 mg PO Q4H PRN PRN PRN Reason: Temp > 100.4 F Last Admin: 05/25/20 03:30 Dose: 500 mg Documented by: Al Hydroxide/Mg Hydroxide (Mag Hydrox/Al Hydrox/Simeth 30 Ml Udc) 30 ml PO Q6H PRN PRN PRN Reason: dyspesia Albuterol Sulfate (Albuterol 2.5 Mg/3 Ml Vial.Neb.) 2.5 mg INHALATION Q2H PRN PRN PRN Reason: Dyspnea, wheezing Bisacodyl (Bisacodyl 10 Mg Suppository) 10 mg RC DAILY PRN PRN Reason: Constipation Dicyclomine HCl (Dicyclomine 10 Mg Capsule) 20 mg PO Q6H PRN PRN PRN Reason: abdominal discomfort Folic Acid (Folic Acid 1 Mg Tablet) 1 mg PO DAILY@0800 [facility] Last Admin: 05/25/20 09:26 Dose: 1 mg Documented by: Gabapentin (Gabapentin 300 Mg Capsule) 300 mg PO Q8 [facility] Last Admin: 05/25/20 06:52 Dose: 300 mg Documented by: Hydroxyzine Pamoate (Hydroxyzine Yadi 25 Mg Capsule) 50 mg PO Q4H PRN PRN PRN Reason: mild anxiety Last Admin: 05/25/20 11:27 Dose: 50 mg Documented by: Ibuprofen (Ibuprofen 600 Mg Tablet) 600 mg PO Q8H PRN PRN PRN Reason: Pain Score 1-10 Last Admin: 05/25/20 06:52 Dose: 600 mg Documented by: Loperamide HCl (Loperamide 2 Mg Capsule) 2 mg PO Q4H PRN PRN PRN Reason: LOOSE STOOLS Nicotine (Nicotine 21 Mg Patch) 21 mg TD DAILY [facility] Last Admin: 05/25/20 09:26 Dose: 21 mg Documented by: Ondansetron HCl (Ondansetron 8 Mg Tablet) 8 mg PO Q8H PRN PRN PRN Reason: NAUSEA Phenobarbital (Phenobarbital 32.4 Mg Tablet) 97.2 mg PO Q4H [facility]; Taper Stop: 05/29/20 03:29 Last Admin: 05/25/20 11:27 Dose: 97.2 mg Documented by: Senna (Senna Tablet) 2 tablet PO QHS PRN PRN PRN Reason: Constipation Sodium Chloride (0.9% Saline Lock 10 Ml Syringe) 10 - 40 ml IV UD PRN PRN Reason: SALINE FLUSH Thiamine HCl (Thiamine Hydrochloride 100 Mg Tablet) [facility] Last Admin: 05/25/20 09:26 Dose: 100 mg Documented by: Trazodone HCl (Trazodone 100 Mg Tablet) 100 mg PO QHS PRN PRN PRN Reason: INSOMNIA Last Admin: 05/24/20 20:28 Dose: 100 mg Documented by: STROKE Vital Signs/Narrative: Vital Signs Temp Pulse Resp BP Pulse Ox 05/25/20 09:23 98.2 F 83 16 118/78 99 Medical Necessity - Tobacco Use Smoking Status: Current every day smoker Tobacco Use: Cigarettes Assessment/Plan All Active Problems Alcohol abuse (Acute) Acute alcohol withdrawal (Acute) #Acute alcohol withdrawal * does have a history of prior DTs * on alcohol withdrawal protocol with phenobarb * on folic acid, thiamine and multivites * Monitor CIWA score. CIWA score is 4 this morning * #Anxiety and depression * not on any meds. To follow up with PCP on outpatient basis * #History of IV drug abuse * urine tox was negative on admission * HIV antibody screen was negative. Hepatitis screen pending * #Nicotine dependence: counseled to quit. Nicotine patch 21mg daily Hypokalemia: resolved DVT prophylaxis: low risk. encourage ambulation. Inpatient E&M: 44895 Subs Hosp L2
[2020-05-25] MEDS: traZODone 100 MG Tablet PO (21:17)
[2020-05-26] VITALS (10 sets, daily range): BP systolic 101–117; BP diastolic 65–85; PULSE 84–98; RESP 16–18; TEMP 36.2–36.9; O2SAT 97–99
[2020-05-26] MEDS: Phenobarbital 32.4 MG Tablet 64.8 MG PO ×6 (03:23→22:30)
[2020-05-26] MEDS: Gabapentin 300 MG Capsule PO ×3 (06:47→22:30)
--- NOTE | 2020-05-26 07:46 | PN_ITS ---
Patient Problems: Active and Suspected Problems Alcohol abuse (Acute) Subjective: Patient seen and examined. She had no complaints. Review of systems otherwise negative. Vitals/I&O's: Vital Signs Temp Pulse Resp BP Pulse Ox 98.0 F 84 16 117/85 H 98 05/26/20 03:51 05/26/20 03:51 05/26/20 03:51 05/26/20 03:51 05/26/20 03:51 Oxygen Flow Rate (L/min) 2 Oxygen Delivery Method Room Air Weight: 152 lb 1.903 oz Body Mass Index (BMI) 23.1 Intake and Output for Last 24 Hours 05/24/20 05/25/20 05/26/20 23:59 23:59 23:59 Intake Total 1000 / 1000 1400 / 1400 200 / 200 Output Total 300 / 300 Balance 700 / 700 1400 / 1400 200 / 200 General: Alert, Oriented x3, Cooperative HEENT: Atraumatic, PERRLA, EOMI, Normocephalic Oral: Moist Mucosa Neck: Supple, No JVD, Negative Carotid Bruits Lungs: Clear to auscultation, Normal air movement Cardiovascular: Regular rate, No murmurs Abdomen: Bowel Sounds Present, Soft, Non Tender Extremities: No edema, Capillary Refill Less than 3 Seconds Skin: No rashes, No breakdown Musculoskeletal: No Tenderness to Palpation of Joints or Extremities Neurological: Cranial nerves II-XII grossly intact Psych/Mental Status: Normal Affect, Appropriate, Alert and oriented to time, place, person, mood and affect Current Medications Acetaminophen (Acetaminophen 500 Mg Tablet) 500 mg PO Q4H PRN PRN PRN Reason: Temp > 100.4 F Last Admin: 05/25/20 03:30 Dose: 500 mg Documented by: Al Hydroxide/Mg Hydroxide (Mag Hydrox/Al Hydrox/Simeth 30 Ml Udc) 30 ml PO Q6H PRN PRN PRN Reason: dyspesia Albuterol Sulfate (Albuterol 2.5 Mg/3 Ml Vial.Neb.) 2.5 mg INHALATION Q2H PRN PRN PRN Reason: Dyspnea, wheezing Bisacodyl (Bisacodyl 10 Mg Suppository) 10 mg RC DAILY PRN PRN Reason: Constipation Dicyclomine HCl (Dicyclomine 10 Mg Capsule) 20 mg PO Q6H PRN PRN PRN Reason: abdominal discomfort Folic Acid (Folic Acid 1 Mg Tablet) 1 mg PO DAILY@0800 [facility] Last Admin: 05/25/20 09:26 Dose: 1 mg Documented by: Gabapentin (Gabapentin 300 Mg Capsule) 300 mg PO Q8 [facility] Last Admin: 05/26/20 06:47 Dose: 300 mg Documented by: Hydroxyzine Pamoate (Hydroxyzine Yadi 25 Mg Capsule) 50 mg PO Q4H PRN PRN PRN Reason: mild anxiety Last Admin: 05/25/20 18:47 Dose: 50 mg Documented by: Ibuprofen (Ibuprofen 600 Mg Tablet) 600 mg PO Q8H PRN PRN PRN Reason: Pain Score 1-10 Last Admin: 05/25/20 06:52 Dose: 600 mg Documented by: Loperamide HCl (Loperamide 2 Mg Capsule) 2 mg PO Q4H PRN PRN PRN Reason: LOOSE STOOLS Nicotine (Nicotine 21 Mg Patch) 21 mg TD DAILY [facility] Last Admin: 05/25/20 09:26 Dose: 21 mg Documented by: Ondansetron HCl (Ondansetron 8 Mg Tablet) 8 mg PO Q8H PRN PRN PRN Reason: NAUSEA Phenobarbital (Phenobarbital 32.4 Mg Tablet) 64.8 mg PO Q4H [facility]; Taper Stop: 05/29/20 03:29 Last Admin: 05/26/20 06:47 Dose: 64.8 mg Documented by: Senna (Senna Tablet) 2 tablet PO QHS PRN PRN PRN Reason: Constipation Sodium Chloride (0.9% Saline Lock 10 Ml Syringe) 10 - 40 ml IV UD PRN PRN Reason: SALINE FLUSH Thiamine HCl (Thiamine Hydrochloride 100 Mg Tablet) 100 mg PO DAILYCM [facility] Last Admin: 05/25/20 09:26 Dose: 100 mg Documented by: Trazodone HCl (Trazodone 100 Mg Tablet) 100 mg PO QHS PRN PRN PRN Reason: INSOMNIA Last Admin: 05/25/20 21:17 Dose: 100 mg Documented by: STROKE Vital Signs/Narrative: Vital Signs Temp Pulse Resp BP Pulse Ox 05/26/20 03:51 98.0 F 84 16 117/85 H 98 Medical Necessity - Tobacco Use Smoking Status: Current every day smoker Tobacco Use: Cigarettes Assessment/Plan All Active Problems Alcohol abuse (Acute) Acute alcohol withdrawal (Acute) #Acute alcohol withdrawal * does have a history of prior DTs * on alcohol withdrawal protocol with phenobarb * on folic acid, thiamine and multivites * Monitor CIWA score. CIWA score is 0 this morning * #Anxiety and depression * not on any meds. To follow up with PCP on outpatient basis * #History of IV drug abuse * urine tox was negative on admission * HIV antibody screen was negative. Hepatitis screen pending * #Nicotine dependence: counseled to quit. Nicotine patch 21mg daily Hypokalemia: resolved DVT prophylaxis: low risk. encourage ambulation. Inpatient E&M: 55669 Subs Hosp L2
[2020-05-26 08:08] LABS: HEPATITIS B SURFACE AG Negative (Negative); Hepatitis A AB, Total Positive (Negative); Hepatitis A IgM Antibody Negative (Negative); Hepatitis B Core AB IgM Negative (Negative); Hepatitis B Core Ab Total Negative (Negative); Hepatitis C Ab <0.1 s/co ratio (0.0-0.9)
[2020-05-26 08:43] LABS: Hep B Surface Antibodies Reactive (.)
[2020-05-26] MEDS: Folic Acid 1 MG Tablet PO (09:04)
[2020-05-26] MEDS: Thiamine Hydrochloride 100 MG Tablet PO (09:04)
--- NOTE | 2020-05-26 09:27 | CASEMGMT ---
SW spoke w/pt navigator from [employer], pt refused yesterday to sign paperwork, she will come see pt today and see if pt will sign the paperwork for the RAMP program. VERONICA Barriga
[2020-05-26] MEDS: traZODone 100 MG Tablet PO (22:30)
[2020-05-27 03:04] VITALS: PULSE 97
[2020-05-27] MEDS: Phenobarbital 32.4 MG Tablet 64.8 MG PO ×2 (03:50→09:17)
[2020-05-27] MEDS: hydrOXYzine PAM 25 MG Capsule 50 MG PO (03:50)
[2020-05-27 04:00] VITALS: BP 105/73; PULSE 102; RESP 16; TEMP 36.2; O2SAT 100
[2020-05-27] MEDS: Gabapentin 300 MG Capsule PO (05:56)
[2020-05-27 06:00] VITALS: BP 102/67; PULSE 87; RESP 16; TEMP 35.9; O2SAT 100
[2020-05-27 07:32] VITALS: O2SAT 96
[2020-05-27 07:57] VITALS: PULSE 86
[2020-05-27 09:12] VITALS: BP 122/85; PULSE 89; RESP 16; TEMP 36; O2SAT 99
[2020-05-27] MEDS: Folic Acid 1 MG Tablet PO (09:18)
[2020-05-27] MEDS: Thiamine Hydrochloride 100 MG Tablet PO (09:18)
--- NOTE | 2020-05-27 09:22 | PCM.DC ---
- Discharge Diagnoses Current Active Problems: Current Active and Chronic Problems Alcohol abuse (Acute) History of heroin abuse (Chronic) Tobacco use (Chronic) Anxiety and depression (Chronic) You will use the following diet at home:: No restrictions Your food should be the consistency of: Regular Your liquids should be the consistency of: Regular/Thin Discharge Activity: Return to Normal Activity Weight Bearing Status: Weight bearing as tolerated Instructions: ED Abuse Drug Narcotic Sedative Rx, ED Alcohol Abuse Additional Instructions: follow up at [facility] as planned Allergies/Adverse Reactions: Allergies amoxicillin Allergy (Verified 05/24/20 15:31) Rash Penicillins Allergy (Verified 05/24/20 15:31) Rash Medications to take at Discharge Gabapentin 600 mg PO BID 04/20/20 Primary Care Physician: Care Physician,No Primary [Primary Care Provider] - Test Results: Test results from this visit will be discussed in further detail at your follow-up appointment, if applicable. Proposed Discharge Date: 05/27/20
--- NOTE | 2020-05-27 09:28 | DS.PCM_ITS ---
Discharge Date and Diagnosis - Problem List Patient Problems: Active and Suspected Problems Alcohol abuse (Acute) Date of Admission: 05/24/20 Date of Discharge: 05/27/20 - Primary Discharge Diagnosis Acute Problems: Active Problems Alcohol abuse (Acute) acute alcohol withdrawal - Secondary Discharge Diagnosis Chronic Problems: Chronic Problems Alcohol abuse (Chronic) Opiate addiction (Chronic) History of heroin abuse (Chronic) Tobacco use (Chronic) Anxiety and depression (Chronic) Hospital Course and Treatment Imaging Results: Vital Signs Temp Pulse Resp BP Pulse Ox 96.8 F L 89 16 122/85 H 99 05/27/20 09:12 05/27/20 09:12 05/27/20 09:12 05/27/20 09:12 05/27/20 09:12 Operations: None Procedures: None Summary of Care Provided: The patient is a 35 year old F with a PMH of alcohol abuse, nicotine dependence and IV drug abuse and previously on Suboxone as well as anxiety and depression. She was found today through the ED on 05/24/2020 for acute alcohol withdrawal. Patient drank about 1 to 1.5 gallons of vodka daily. On admission, she complained of nausea, tremors and agitation. Labs done were essentially unremarkable apart from potassium of 3.1 alcohol level was 613. She was admitted and managed for acute alcohol withdrawal. She was started on alcohol withdrawal protocol with phenobarbital. Urine tox was otherwise negative. She tolerated 3-day detox process and remained stable. She was discharged home on 05/27/2020. Her preference, is going to follow-up with [facility] addiction facility in [place]. Patient seen and examined prior to discharge. She had no complaints. Review of systems otherwise negative. Labs and vitals reviewed. Medication reviewed and reconciled. O/E: Vital Signs Temp Pulse Resp BP Pulse Ox 96.8 F L 89 16 122/85 H 99 05/27/20 09:12 05/27/20 09:12 05/27/20 09:12 05/27/20 09:12 05/27/20 09:12 [] General: Alert, Oriented x3, Cooperative HEENT: Atraumatic, PERRLA, EOMI, Normocephalic Oral: Moist Mucosa Neck: Supple, No JVD, Negative Carotid Bruits Lungs: Clear to auscultation, Normal air movement Cardiovascular: Regular rate, No murmurs Abdomen: Bowel Sounds Present, Soft, Non Tender Extremities: No edema, Capillary Refill Less than 3 Seconds Skin: No rashes, No breakdown Musculoskeletal: No Tenderness to Palpation of Joints or Extremities Neurological: Cranial nerves II-XII grossly intact Psych/Mental Status: Normal Affect, Appropriate, Alert and oriented to time, place, person, mood and affect Plan is for discharge home today. Patient Problems: Active and Suspected Problems Alcohol abuse (Acute) - Physical Exam Vitals/I&O's: Vital Signs Temp Pulse Resp BP Pulse Ox 96.8 F L 89 16 122/85 H 99 05/27/20 09:12 05/27/20 09:12 05/27/20 09:12 05/27/20 09:12 05/27/20 09:12 Oxygen Flow Rate (L/min) 2 Oxygen Delivery Method Room Air Weight: 152 lb 1.903 oz Body Mass Index (BMI) 23.1 Intake and Output for Last 24 Hours 05/25/20 05/26/20 05/28/20 23:59 23:59 00:59 Intake Total 1400 / 1400 560 / 560 360 / 360 Balance 1400 / 1400 560 / 560 360 / 360 General: Alert, Oriented x3, Cooperative HEENT: Atraumatic, PERRLA, EOMI, Normocephalic Oral: Moist Mucosa Neck: Supple, No JVD, Negative Carotid Bruits Lungs: Clear to auscultation, Normal air movement Cardiovascular: Regular rate, No murmurs Abdomen: Bowel Sounds Present, Soft, Non Tender Extremities: No edema, Capillary Refill Less than 3 Seconds Skin: No rashes, No breakdown Musculoskeletal: No Tenderness to Palpation of Joints or Extremities Neurological: Cranial nerves II-XII grossly intact Psych/Mental Status: Normal Affect, Appropriate, Alert and oriented to time, place, person, mood and affect Plan is for discharge home today Laboratory Results 05/24/20 15:35: Hepatitis A IgM Ab Negative, Hepatitis A Ab Total Positive H, Hep Bs Antigen Negative, Hep B Core Total Ab Negative, Hep B Core IgM Ab Negative, Hepatitis C Ab Confirm <0.1, Hep C Confirm Com 1 Comment Current Medications Acetaminophen (Acetaminophen 500 Mg Tablet) 500 mg PO Q4H PRN PRN PRN Reason: Temp > 100.4 F Last Admin: 05/25/20 03:30 Dose: 500 mg Documented by: Al Hydroxide/Mg Hydroxide (Mag Hydrox/Al Hydrox/Simeth 30 Ml Udc) 30 ml PO Q6H PRN PRN PRN Reason: dyspesia Albuterol Sulfate (Albuterol 2.5 Mg/3 Ml Vial.Neb.) 2.5 mg INHALATION Q2H PRN PRN PRN Reason: Dyspnea, wheezing Bisacodyl (Bisacodyl 10 Mg Suppository) 10 mg RC DAILY PRN PRN Reason: Constipation Dicyclomine HCl (Dicyclomine 10 Mg Capsule) 20 mg PO Q6H PRN PRN PRN Reason: abdominal discomfort Folic Acid (Folic Acid 1 Mg Tablet) 1 mg PO DAILY@0800 [facility] Last Admin: 05/27/20 09:18 Dose: 1 mg Documented by: Gabapentin (Gabapentin 300 Mg Capsule) 300 mg PO Q8 [facility] Last Admin: 05/27/20 05:56 Dose: 300 mg Documented by: Hydroxyzine Pamoate (Hydroxyzine Yadi 25 Mg Capsule) 50 mg PO Q4H PRN PRN PRN Reason: mild anxiety Last Admin: 05/27/20 03:50 Dose: 50 mg Documented by: Ibuprofen (Ibuprofen 600 Mg Tablet) 600 mg PO Q8H PRN PRN PRN Reason: Pain Score 1-10 Last Admin: 05/25/20 06:52 Dose: 600 mg Documented by: Loperamide HCl (Loperamide 2 Mg Capsule) 2 mg PO Q4H PRN PRN PRN Reason: LOOSE STOOLS Nicotine (Nicotine 21 Mg Patch) 21 mg TD DAILY [facility] Last Admin: 05/27/20 09:18 Dose: Not Given Documented by: Ondansetron HCl (Ondansetron 8 Mg Tablet) 8 mg PO Q8H PRN PRN PRN Reason: NAUSEA Phenobarbital (Phenobarbital 32.4 Mg Tablet) 64.8 mg PO Q6H [facility]; Taper Stop: 05/29/20 03:29 Last Admin: 05/27/20 09:17 Dose: 64.8 mg Documented by: Senna (Senna Tablet) 2 tablet PO QHS PRN PRN PRN Reason: Constipation Sodium Chloride (0.9% Saline Lock 10 Ml Syringe) 10 - 40 ml IV UD PRN PRN Reason: SALINE FLUSH Thiamine HCl (Thiamine Hydrochloride 100 Mg Tablet) [facility] Last Admin: 05/27/20 09:18 Dose: 100 mg Documented by: Trazodone HCl (Trazodone 100 Mg Tablet) 100 mg PO QHS PRN PRN PRN Reason: INSOMNIA Last Admin: 05/26/20 22:30 Dose: 100 mg Documented by: Discharge Activity: Return to Normal Activity Weight Bearing Status: Weight bearing as tolerated Home Medications: Medications to take at Discharge Gabapentin 600 mg PO BID 04/20/20 Primary Care Physician: Care Physician,No Primary [Primary Care Provider] - Patient Instructions: ED Abuse Drug Narcotic Sedative Rx, ED Alcohol Abuse Disposition: Home Minutes spent on discharge:: 35 Patient Condition:: Stable Medical Necessity - Tobacco Use Smoking Status: Current every day smoker Tobacco Use: Cigarettes Meaningful Use Info Meaningful Use Diagnoses (Choose all that apply): None applicable Inpatient E&M: 33084 [facility]
== END 2020-05-27 11:10 | disposition home or self-care (01) | DRG 773 ==
LOC: ED 16:07 → PCU 17:03
PROVIDERS: Admitting Provider Family Medicine; Emergency Provider Emergency Medicine; Visit Provider Student in an Organized Health Care Education/Training Program
DX: F10.239 Alcohol dependence with withdrawal, unspecified (principal); F17.210 Nicotine dependence, cigarettes, uncomplicated; E87.6 Hypokalemia; F41.9 Anxiety disorder, unspecified; F32.9 Major depressive disorder, single episode, unspecified; F11.20 Opioid dependence, uncomplicated; Y90.8 Blood alcohol level of 240 mg/100 ml or more
CPT/HCPCS: 80053; 80307; 81025; 82077; 83735; 84100; 85025; 86703; 86704; 86705; 86706; 86708; 86709; 86803; 87340; 97802; 99251; 99285; 99406; J7030; J7120; A4216; G0463

== ENCOUNTER 2021-01-16 22:18 | Inpatient (IN) | payer MEDICAID, SELFPAY ==
[2021-01-16 22:20] VITALS: BP 142/98; PULSE 109; RESP 16; TEMP 36.3; O2SAT 98; BMI 28.8
[2021-01-16 23:08] VITALS: BP 142/98; PULSE 109; RESP 16; O2SAT 98
--- NOTE | 2021-01-16 23:19 | ED.RN ---
PT CURRENTLY REFUSING TO SIGN THE [facility] CONTRACT. PT STATES I WILL NOT BE LETTING ANYONE LOCK AWAY MY PHONE OR BELONGINGS.
[2021-01-16 23:42] LABS: Absolute Lymphocyte Count 2.45 X10^3/uL (0.83-4.51); Absolute Neutrophil Count 2.6 X10^3/uL (2.0-7.7); Basophil# 0.04 X10^3/uL; Basophil% 0.7 % (0-1); Eosinophil# 0.04 X10^3/uL; Eosinophils% 0.7 % (0-5); Hematocrit 44.9 % (37-47); Hemoglobin 15.1 g/dL (12.0-15.0); Lymphocyte # 2.45 X10^3/ul (0.83-4.51); Lymphocyte % 44.1 % (19-41); Mean Corp Hgb Conc 33.6 g/dL (32-36); Mean Corpuscular Hgb 29.9 pg (27.0-32.0); Mean Corpuscular Volume 88.9 fL (81-99); Mean Platelet Vol. 8.6 fl (6.2-12.0); Monocyte# 0.42 X10^3/uL; Monocyte% 7.6 % (0-10); NRBC Flagged by Analyzer 0 % (0-5); Neutrophil # 2.59 X10^3/uL (2.7-7.7); Neutrophil % 46.5 % (47-70); Platelet Count 202 K/mm3 (150-450); RBC Distribution Width CV 14.4 % (11.6-14.6); RBC Distribution Width SD 45.1 fl (35.1-43.9); Red Blood Count 5.05 M/mm3 (4.2-5.4); White Blood Count 5.6 K/mm3 (4.4-11.0)
[2021-01-16] MEDS: Phenobarbital 32.4 MG Tablet 97.2 MG PO (23:46)
[2021-01-17] VITALS (7 sets, daily range): BP systolic 109–140; BP diastolic 69–86; PULSE 90–112; RESP 16–18; TEMP 36.2–37.2; O2SAT 96–100; BMI 31.4
[2021-01-17 00:01] LABS: ALB/GLOB Ratio 0.9 RATIO (0.9-2.4); AST(SGOT) 641 U/L (15-37); Alanine Aminotransfer ALT/SGPT 266 U/L (13-56); Albumin, Serum 3.8 g/dL (3.2-5.0); Alkaline Phosphatase 167 U/L (45-117); Anion Gap 10 (5-15); BUN 7 mg/dL (7-18); BUN/Creat Ratio 10.6 RATIO (10-20); Calcium,Total 8.4 mg/dL (8.5-10.1); Chloride 105 mmol/L (98-107); Creatinine, Serum 0.66 mg/dL (0.55-1.02); EST Glomerular Filtration Rate 107 mL/min (>60); Est Glom Filt Rate - Afr Amer 130 mL/min (>60); Estimated Creatinine Clearance 98.42 ml/min; Globulin 4.3 g/dL (2.2-4.2); Glucose 93 mg/dL (74-106); Potassium 3.3 mmol/L (3.5-5.1); Protein, Total 8.1 g/dL (6.4-8.2); Sodium Level 141 mmol/L (136-145)
[2021-01-17 00:05] LABS: Amphetamine Urine VISTA NEGATIVE (<1000 ng/mL); Barbiturate Urine VISTA NEGATIVE (< 200 ng/mL); Benzodiazepine Urine VISTA NEGATIVE (< 200 ng/mL); Cocaine Urine VISTA NEGATIVE (< 300 ng/mL); Ecstacy Urine VISTA NEGATIVE (< 500 ng/mL); Methadone Urine VISTA NEGATIVE (< 300 ng/mL); PCP Urine VISTA NEGATIVE (< 25 ng/mL); THC Urine VISTA NEGATIVE (< 50 ng/mL); Vista UDS pH Range 6
--- NOTE | 2021-01-17 00:26 | EX.ED.SAOD ---
HPI History of Present Illness Chief Complaint: Substance Abuse Detail of Chief Complaint: Patient presents for alcohol detox Informant: patient Onset/Context/Timing Onset: Month(s) Context: Gradual Onset Timing: Continuous Quality: Patient states she drinks a gallon of grocery store vodka per day. Location: Not applicable Current Severity: Severe Maximum Severity: Severe Worsened by: Decreasing or not drinking Relieved by: Drinking Associated Symptoms Associated Symptoms: Positive for seizure (Patient has history of alcohol withdrawal seizure.) and palpatations; Negative for vomiting*, diarrhea*, fever*, rash*, tremor, change in mental status, trauma, sex for drugs*, no, suicidal ideation, homicidal ideation and *HIV Risk Factors:Consider testing if last test > 6 months Narrative Narrative: Patient is a 35-year-old woman with history of depression, anxiety and history of opiate addiction and alcohol abuse. She has not been in a detox program for approximately 3 years. She admits to smoking 1/2 to 1 pack/day. She understands she cannot smoke while in the hospital. She understands the rules. She did sign contract. She admits to drinking a gallon of vodka a day. She is only consumed 1/2 gallon a day. She feels palpitations presently. She does complain of nausea without vomiting or diarrhea. She denies tremors. She is not taking her anticonvulsant meds. She believes is Keppra. Prior similar symptoms: Yes Recent Illness/Hospitalization: No PFSH PFSH Medical History Alcohol abuse Home Medications Gabapentin 600 mg PO BID 04/20/20 [History Last Taken 04/18/20] Allergy/AdvReac Type Severity Reaction Status Date / Time amoxicillin Allergy Rash Verified 01/16/21 22:22 Penicillins Allergy Rash Verified 01/16/21 22:22 no surgical history Social History (Updated 01/17/21 @ 00:[address] Minor Kothari MD) household members: children Smoking Status: Current every day smoker tobacco type: cigarettes alcohol intake: current alcohol intake frequency: 3 or more drinks per day substance use type: does not use ROS ROS ED Constitutional Constitutional ED: Reports sweats; Denies chills, fever(s), subjective or weight loss Eyes Eyes: Denies blurry vision, change in vision or diplopia ENT ENT ED: Denies ear pain, rhinorrhea or sore throat Cardiovascular Cardiovascular: Reports palpitations and racing heartbeat; Denies chest pain Respiratory/Chest Respiratory/Chest: Denies cough, dyspnea, dyspnea on exertion or sputum Gastrointestinal Gastrointestinal: Reports nausea; Denies abdominal pain, constipation, diarrhea or vomiting Genitourinary Genitourinary ED: Denies dysuria or urinary frequency Musculoskeletal Musculoskeletal: Denies arthralgias, myalgias or neck pain Integumentary Denies abscess, Abrasions or rash Neurologic Neurologic: Denies headache(s), paresthesias or weakness Psychiatric Psychiatric: Reports anxiety and depression; Denies suicidal ideation or suicidal thoughts Hematologic/Lymphatic Hematologic/Lymphatic: Denies easy bleeding or easy bruising EXAM Physical Exam Const Vital Signs: 01/16/21 22:20 01/16/21 23:08 Temperature 97.3 F L Temperature Source Temporal Pulse Rate 109 H 109 H Respiratory Rate 16 16 Blood Pressure 142/98 H 142/98 H Blood Pressure Mean 112 112 Blood Pressure Source Monitor Blood Pressure Position Sitting Blood Pressure Location Left Arm Pulse Ox 98 98 Oxygen Delivery Method Room Air Positive well nourished, well developed and obese General Appearance ED: well developed and NAD; Negative for pallor Nutritional Appearance: obese HEENT Reports TM's clear and moist mucous membranes HEENT Narrative: Head is normocephalic. Ears normal. Nares patent. Posterior pharynx unremarkable. Patient has evidence of prior facial scars from falls. atraumatic Tympanic Membrane ED: Yes TM's clear Eyes PERRL and EOMs intact bilaterally Eyes Narrative: There is no subconjunctival hemorrhage noted. General Eye ED: Negative for pale conjunctiva or scleral icterus Neck no lymphadenopathy, supple and no JVD Lymph Lymphatic: no lymphadenopathy noted Chest Wall inspection of chest normal and palpation of chest normal Resp normal respiratory effort and clear to auscultation bilaterally Cardio regular rhythm, S1 normal heart sound, S2 normal heart sound and no murmurs Rate: tachycardic GI soft to palpation, non-tender, non-distended and no masses Back/Spine no CVA tenderness Cervical Spine: Negative for cervical spine tenderness Thoracic Spine / Upper Back: Negative for thoracic spinal tenderness Lumbar Spine / Lower Back: Negative for lumbar spinal tenderness Neuro oriented x3, CN's II-XII intact bilaterally and no sensory deficits noted Neuro Narrative: There is no hyperreflexia. Gait is not ataxic. There is no dysmetria. Sensorium / Orientation: alert; Negative for confused, lethargic or stuporous Speech: speech normal Sensory Exam: No sensory level loss detected Motor Exam: strength 5/5 throughout Psych mental status grossly normal and thought process normal Skin General Skin Exam: Negative for jaundice or pallor Lesions: no lesions Rashes: no rashes MDM MDM MDM Narrative Medical decision making narrative: Patient symptoms are concerning for possible early alcohol withdrawal since she is decreased from 1 gallon of vodka today 1/2 gallon. She was given phenobarb. Vitals are remarkable for tachycardia. Blood work is unremarkable. Alcohol level is 390. Case was discussed with hospitalist. She is to be admitted to [facility] for alcohol detox. Lab Data Labs: Laboratory Results - last 24 hr 01/16/21 01/16/21 01/16/21 23:30 23:35 23:35 WBC 5.6 RBC 5.05 Hgb 15.1 H Hct 44.9 MCV 88.9 MCH 29.9 MCHC 33.6 RDW Std Deviation 45.1 H RDW Coeff of Taylor 14.4 Plt Count 202 MPV 8.6 Immature Gran % (Auto) 0.400 Neut % (Auto) 46.5 L Lymph % (Auto) 44.1 H [place] % (Auto) 7.6 Eos % (Auto) 0.7 Baso % (Auto) 0.7 Absolute Neuts (auto) 2.6 Absolute Lymphs (auto) 2.45 Nucleated RBC % 0 Sodium 141 Potassium 3.3 L Chloride 105 Carbon Dioxide 26.0 Anion Gap 10 BUN 7 Creatinine 0.66 Estim Creat Clear Calc 98.42 Est GFR (MDRD) Af Amer 130 Est GFR (MDRD) Non-Af 107 BUN/Creatinine Ratio 10.6 Glucose 93 Calcium 8.4 L Total Bilirubin 0.50 AST 641 H ALT 266 H Alkaline Phosphatase 167 H Total Protein 8.1 Albumin 3.8 Globulin 4.3 H Albumin/Globulin Ratio 0.9 Urine Opiates Screen NEGATIVE Urine Methadone Screen NEGATIVE Ur Barbiturates Screen NEGATIVE Ur Phencyclidine Scrn NEGATIVE Ur Amphetamines Screen NEGATIVE U Methamphetamin-MDMA NEGATIVE U Benzodiazepines Scrn NEGATIVE Urine Cocaine Screen NEGATIVE U Cannabinoids Screen NEGATIVE Ur Drug Screen Comment Ethyl Alcohol 01/16/21 23:35 WBC RBC Hgb Hct MCV MCH MCHC RDW Std Deviation RDW Coeff of Taylor Plt Count MPV Immature Gran % (Auto) Neut % (Auto) Lymph % (Auto) [place] % (Auto) Eos % (Auto) Baso % (Auto) Absolute Neuts (auto) Absolute Lymphs (auto) Nucleated RBC % Sodium Potassium Chloride Carbon Dioxide Anion Gap BUN Creatinine Estim Creat Clear Calc Est GFR (MDRD) Af Amer Est GFR (MDRD) Non-Af BUN/Creatinine Ratio Glucose Calcium Total Bilirubin AST ALT Alkaline Phosphatase Total Protein Albumin Globulin Albumin/Globulin Ratio Urine Opiates Screen Urine Methadone Screen Ur Barbiturates Screen Ur Phencyclidine Scrn Ur Amphetamines Screen U Methamphetamin-MDMA U Benzodiazepines Scrn Urine Cocaine Screen U Cannabinoids Screen Ur Drug Screen Comment Ethyl Alcohol 393.0 H* Discharge Plan Triage Chief Complaint: Substance Abuse ED Provider: Minor Kothari Dx/Rx/DC Orders Clinical Impression: Alcohol dependence with acute alcoholic intoxication, Sinus tachycardia Prescriptions: No Action Gabapentin 600 MG tablet 600 mg PO BID RF: 0 Primary Care Provider: Care Physician,No Primary Referrals: Care Physician,No Primary [Primary Care Provider] - Disposition Disposition: Acute Care Hospital [facility]
--- NOTE | 2021-01-17 00:42 | HP.PCM.HOS_ITS ---
HPI - General General Date of Admission: 01/17/21 Date of Service: 01/17/21 Chief Complaint: requesting alcohol detoxification HPI Narrative JHONNY SALDANA, is a 35 F who presents seeking treatment for alcohol detox. Patient was last here back in May. Patient had been sober until about 3 weeks ago where she started drinking grocery store alcohol. Over the past week, she has increased her consumption to about a gallon of the low proof grocery store alcohol. Her last drink was about 2 hours prior to arrival. At present, she is not undergoing any acute alcohol withdrawal symptoms but she does have a history of alcohol withdrawal seizures, tremors. [facility] Medical History Alcohol abuse Alcohol abuse Anxiety and depression History of heroin abuse Tobacco use Home Medications Gabapentin 600 mg PO BID 04/20/20 [History Last Taken 04/18/20] Allergy/AdvReac Type Severity Reaction Status Date / Time amoxicillin Allergy Rash Verified 01/16/21 22:22 Penicillins Allergy Rash Verified 01/16/21 22:22 Family History (Updated 01/17/21 @ 00:[address] Sourav Torres DO) Brother , from COVID 19 COVID-19 Other Alcoholism Surgical History no surgical history Social History household members: children Smoking Status: Current every day smoker tobacco type: cigarettes alcohol intake: current alcohol intake frequency: 3 or more drinks per day substance use type: does not use ROS ROS Narrative All review of systems were negative except as mentioned above in the history of present illness and the other review of systems. Vital Signs Vital Signs Vital Signs: 01/16/21 22:20 01/16/21 23:08 Temperature 36.3 C L Temperature Source Temporal Pulse Rate 109 H 109 H Respiratory Rate 16 16 Blood Pressure 142/98 H 142/98 H Blood Pressure Mean 112 112 Blood Pressure Source Monitor Blood Pressure Position Sitting Blood Pressure Location Left Arm Pulse Ox 98 98 Oxygen Delivery Method Room Air Weight Weight: 73.936 kg Body Mass Index (BMI) 28.8 Physical Exam Const alert Constitutional Narrative: Intoxicated. Afebrile. Resp normal respiratory effort, no retractions, no use of accessory muscles and clear to auscultation bilaterally Cardio regular rate, regular rhythm, S1 normal heart sound and S2 normal heart sound GI normal to inspection, nondistended, normoactive bowel sounds, soft to palpation and non-tender Extremity normal to inspection Results Lab / Micro Data Attestation: I reviewed the patient's lab results. Result Diagrams: 01/16/21 23:35 01/16/21 23:35 Labs: Laboratory Results - last 24 hr 01/16/21 23:30: Urine Opiates Screen NEGATIVE, Urine Methadone Screen NEGATIVE, Ur Barbiturates Screen NEGATIVE, Ur Phencyclidine Scrn NEGATIVE, Ur Amphetamines Screen NEGATIVE, U Methamphetamin-MDMA NEGATIVE, U Benzodiazepines Scrn NEGATIVE, Urine Cocaine Screen NEGATIVE, U Cannabinoids Screen NEGATIVE, Ur Drug Screen Comment 01/16/21 23:35: WBC 5.6, RBC 5.05, Hgb 15.1 H, Hct 44.9, MCV 88.9, MCH 29.9, MCHC 33.6, RDW Std Deviation 45.1 H, RDW Coeff of Taylor 14.4, Plt Count 202, MPV 8.6, Immature Gran % (Auto) 0.400, Neut % (Auto) 46.5 L, Lymph % (Auto) 44.1 H, [place] % (Auto) 7.6, Eos % (Auto) 0.7, Baso % (Auto) 0.7, Absolute Neuts (auto) 2.6, Absolute Lymphs (auto) 2.45, Nucleated RBC % 0 01/16/21 23:35: Sodium 141, Potassium 3.3 L, Chloride 105, Carbon Dioxide 26.0, Anion Gap 10, BUN 7, Creatinine 0.66, Estim Creat Clear Calc 98.42, Est GFR (MDRD) Af Amer 130, Est GFR (MDRD) Non-Af 107, BUN/Creatinine Ratio 10.6, Glucose 93, Calcium 8.4 L, Total Bilirubin 0.50, AST 641 H, ALT 266 H, Alkaline Phosphatase 167 H, Total Protein 8.1, Albumin 3.8, Globulin 4.3 H, Albumin/G lobulin Ratio 0.9 01/16/21 23:35: Ethyl Alcohol 393.0 H* Assessment & Plan Assessment/Plan (1) Acute alcohol withdrawal: (2) Hypokalemia: PLAN: 1. Alcohol withdrawal * Patient currently intoxicated and is not acutely going through alcohol withdrawal but does have a history of ischemic alcohol withdrawal * Patient has restarted drinking about 3 weeks ago and then drinking heavily over the past week * Start phenobarbital, thiamine and folate and other agents to help with other somatic complaints associated with her alcohol withdrawal. * Patient involved with her counselor but did not talk to her counselor before coming into the hospital. 2. Hypokalemia * Replace 3. Tobacco abuse * Nicotine patch 4. VTE prophylaxis: Low risk. Encourage ambulation Charges/Coding Visit Charges Inpatient E&M: 70065 Init Hosp L2
[2021-01-17 01:03] LABS: Internal QC Validated? YES +Cl - CLEAR BKGD; Pregnancy, Serum, hCG Quali. NEGATIVE Negative
--- NOTE | 2021-01-17 02:11 | PCS.PANDOC ---
PANDEMIC DOCUMENTATION INITIATED: Date: 01/17/2021 Time: 209
[2021-01-17] MEDS: Phenobarbital 32.4 MG Tablet 64.8 MG PO ×6 (02:35→22:03)
[2021-01-17] MEDS: Potassium Chloride Oral Tablet 20 MEQ 40 MEQ PO (02:36)
[2021-01-17] MEDS: hydrOXYzine PAM 25 MG Capsule 50 MG PO ×2 (06:19→22:03)
--- NOTE | 2021-01-17 08:48 | CASEMGMT ---
Social Work VM to Yvrose, addiction therapist, regarding pt admission for [facility] program. HAILEY Caldwell
[2021-01-17] MEDS: Folic Acid 1 MG Tablet PO (09:29)
[2021-01-17] MEDS: Thiamine Hydrochloride 100 MG Tablet PO (09:30)
[2021-01-17] MEDS: Ibuprofen 600 MG Tablet PO (09:31)
[2021-01-17] MEDS: Dicyclomine 10 MG Capsule 20 MG PO (09:31)
[2021-01-17] MEDS: Gabapentin 300 MG Capsule PO (09:32)
--- NOTE | 2021-01-17 11:11 | ADDICTION ---
This marketing copywriter attempted to meet with PT. PT was asleep upon arrival and woke to verbal queing, however, was unable to participate appropriately due to lethargy and tiredness. This marketing copywriter will attempt to meet with PT at next visit on 01/18/21.
--- NOTE | 2021-01-17 12:10 | PN.HOSP_ITS ---
Subjective Subjective Patient seen and examined. She complains of alcohol withdrawal symptoms, such as tremors and cramps as well as increased sweating. Review of systems is otherwise negative. Objective Data Objective Data Vital Signs: Vital Signs Temp Pulse Resp BP Pulse Ox 99.0 F 101 H 18 110/70 97 01/17/21 10:19 01/17/21 10:19 01/17/21 10:19 01/17/21 10:19 01/17/21 10:19 Oxygen Delivery Method Room Air Weight: 177 lb 11.081 oz Body Mass Index (BMI) 31.4 Intake & Output: Intake and Output for Last 24 Hours 01/15/21 01/16/21 01/17/21 23:59 23:59 23:59 Intake Total 240 / 240 Balance 240 / 240 Lab / Micro Data Result Diagrams: 01/16/21 23:35 01/16/21 23:35 Labs: Laboratory Results - last 24 hr 01/16/21 23:30: Urine Opiates Screen NEGATIVE, Urine Methadone Screen NEGATIVE, Ur Barbiturates Screen NEGATIVE, Ur Phencyclidine Scrn NEGATIVE, Ur Amphetamines Screen NEGATIVE, U Methamphetamin-MDMA NEGATIVE, U Benzodiazepines Scrn NEGATIVE, Urine Cocaine Screen NEGATIVE, U Cannabinoids Screen NEGATIVE, Ur Drug Screen Comment 01/16/21 23:35: WBC 5.6, RBC 5.05, Hgb 15.1 H, Hct 44.9, MCV 88.9, MCH 29.9, MCHC 33.6, RDW Std Deviation 45.1 H, RDW Coeff of Taylor 14.4, Plt Count 202, MPV 8.6, Immature Gran % (Auto) 0.400, Neut % (Auto) 46.5 L, Lymph % (Auto) 44.1 H, [place] % (Auto) 7.6, Eos % (Auto) 0.7, Baso % (Auto) 0.7, Absolute Neuts (auto) 2.6, Absolute Lymphs (auto) 2.45, Nucleated RBC % 0 01/16/21 23:35: Sodium 141, Potassium 3.3 L, Chloride 105, Carbon Dioxide 26.0, Anion Gap 10, BUN 7, Creatinine 0.66, Estim Creat Clear Calc 98.42, Est GFR (MDRD) Af Amer 130, Est GFR (MDRD) Non-Af 107, BUN/Creatinine Ratio 10.6, Glucose 93, Calcium 8.4 L, Total Bilirubin 0.50, AST 641 H, ALT 266 H, Alkaline Phosphatase 167 H, Total Protein 8.1, Albumin 3.8, Globulin 4.3 H, Albumin/Globulin Ratio 0.9 01/16/21 23:35: Ethyl Alcohol 393.0 H* 01/16/21 23:35: Serum , Qual NEGATIVE Physical Exam Const alert, oriented x3 and no apparent distress Exam Limitations: no limitations HEENT head/scalp atraumatic, moist oral mucous membranes and oropharynx normal Head and Scalp: normocephalic Eyes PERRL, EOMs intact bilaterally and conjunctivae normal Neck no lymphadenopathy and supple Resp normal respiratory effort, no retractions, no use of accessory muscles and clear to auscultation bilaterally Cardio regular rate, regular rhythm, S1 normal heart sound, S2 normal heart sound and no murmurs GI normal to inspection, nondistended, normoactive bowel sounds, soft to palpation, non-tender and non-distended Extremity normal to inspection, full ROM and no clubbing, cyanosis or edema Peripheral Pulses: Yes pulses 2+ throughout Skin no rashes or lesions noted Neuro oriented x3, CN's II-XII intact bilaterally and moves all extremities Sensorium / Orientation: awake and alert Psych affect normal Assessment & Plan Assessment/Plan (1) Acute alcohol withdrawal: (2) Alcohol abuse: PLAN: #Acute alcohol withdrawal * on alcohol withdrawal protocol with phenobarbital * on thiamine, folic acid and multivitamin. * monitor CIWA score * #Hypokalemia: replaced. Will trend. #Nicotine dependence: counseled to quit. Nicotine patch 21mg daily #Elevated liver enzymes * AST is 641 and ALT of 266 with ALP of 167 * likely due to alcohol abuse. * will trend. * DVT prophylaxis:low risk. Encourage ambulation. Charges/Coding Visit Charges Inpatient E&M: 30199 Subs Hosp L2
[2021-01-17] MEDS: traZODone 100 MG Tablet PO (22:04)
[2021-01-18 02:30] VITALS: BP 110/63; PULSE 82; RESP 16; TEMP 36.4; O2SAT 98
[2021-01-18] MEDS: hydrOXYzine PAM 25 MG Capsule 50 MG PO ×3 (02:34→20:11)
[2021-01-18] MEDS: Phenobarbital 32.4 MG Tablet 64.8 MG PO ×6 (02:34→22:51)
[2021-01-18 06:25] VITALS: BP 112/68; PULSE 77; RESP 18; TEMP 36.3; O2SAT 100
[2021-01-18 09:15] VITALS: BP 110/73; PULSE 82; RESP 18; TEMP 36.8; O2SAT 98
[2021-01-18] MEDS: Thiamine Hydrochloride 100 MG Tablet PO (09:19)
[2021-01-18] MEDS: Folic Acid 1 MG Tablet PO (09:19)
--- NOTE | 2021-01-18 10:26 | PN.HOSP_ITS ---
Subjective Subjective Patient seen and examined. She had no complaints today and had an uneventful night. Review of systems is otherwise negative. Objective Data Objective Data Vital Signs: Vital Signs Temp Pulse Resp BP Pulse Ox 98.2 F 82 18 110/73 98 01/18/21 09:15 01/18/21 09:15 01/18/21 09:15 01/18/21 09:15 01/18/21 09:15 Oxygen Delivery Method Room Air Weight: 177 lb 11.081 oz Body Mass Index (BMI) 31.4 Intake & Output: Intake and Output for Last 24 Hours 01/16/21 01/17/21 01/18/21 23:59 23:59 23:59 Intake Total 240 / 840 1000 / 1000 Balance 240 / 840 1000 / 1000 Lab / Micro Data Result Diagrams: 01/16/21 23:35 01/16/21 23:35 Physical Exam Const alert, oriented x3 and no apparent distress Constitutional Narrative: Intoxicated. Afebrile. Exam Limitations: no limitations HEENT head/scalp atraumatic, moist oral mucous membranes and oropharynx normal Eyes PERRL, EOMs intact bilaterally and conjunctivae normal Neck no lymphadenopathy and supple Resp normal respiratory effort, no retractions, no use of accessory muscles and clear to auscultation bilaterally Cardio regular rate, regular rhythm, S1 normal heart sound, S2 normal heart sound and n o murmurs GI normal to inspection, nondistended, normoactive bowel sounds, soft to palpation, non-tender and non-distended Extremity normal to inspection, full ROM and no clubbing, cyanosis or edema Peripheral Pulses: Yes pulses 2+ throughout Skin no rashes or lesions noted Neuro oriented x3, CN's II-XII intact bilaterally and moves all extremities Sensorium / Orientation: awake and alert Psych affect normal Assessment & Plan Assessment/Plan (1) Acute alcohol withdrawal: (2) Alcohol abuse: PLAN: #Acute alcohol withdrawal * on alcohol withdrawal protocol with phenobarbital * on thiamine, folic acid and multivitamin. * monitor CIWA score * #Hypokalemia: replaced. Will trend. #Nicotine dependence: counseled to quit. Nicotine patch 21mg daily #Elevated liver enzymes * likely due to alcohol abuse. * will trend. * DVT prophylaxis:low risk. Encourage ambulation. Disposition: wants to go straight to [facility] rehab facility after discharge. Case management on board. Charges/Coding Visit Charges Inpatient E&M: 90606 Subs Hosp L2
--- NOTE | 2021-01-18 11:01 | ADDICTION ---
This senior technical writer met with PT to conduct ASAM, MSE, AUDIT assessments and to plan for d/c. PT A+Ox4 and participated actively. All assessments completed, faxed to [facility] and placed in PT's chart. PT plans to f/u with [facility] at [facility] for residential treatment and follow-up counseling services. PT did indicate a need for transportation post d/c from [facility]. [facility] will transport.
[2021-01-18 13:55] VITALS: BP 116/76; PULSE 90; RESP 18; TEMP 36.1; O2SAT 98
[2021-01-18 19:59] VITALS: BP 113/71; PULSE 90; RESP 15; TEMP 36.4; O2SAT 99
[2021-01-18 20:00] VITALS: BP 113/71; PULSE 80; RESP 15; TEMP 36.4; O2SAT 98
[2021-01-18] MEDS: traZODone 100 MG Tablet PO (21:43)
[2021-01-19] VITALS (7 sets, daily range): BP systolic 108–124; BP diastolic 62–81; PULSE 71–90; RESP 15–18; TEMP 36.3–36.8; O2SAT 97–98
[2021-01-19] MEDS: Phenobarbital 32.4 MG Tablet 64.8 MG PO ×3 (02:33→10:46)
[2021-01-19] MEDS: Thiamine Hydrochloride 100 MG Tablet PO (09:04)
[2021-01-19] MEDS: Folic Acid 1 MG Tablet PO (09:04)
--- NOTE | 2021-01-19 09:58 | DS.PCM_ITS ---
Providers Date of Admission: 01/17/21 Primary Care Physician: Stacy Primary Care Phys Reason For Visit: ALCOHOL WITHDRAWAL Diagnosis Discharge Diagnosis (1) Acute alcohol withdrawal: Status: Acute (2) Alcohol abuse: Status: Acute Code(s): F10.10 - Alcohol abuse, uncomplicated Medications at Discharge Home Medications Gabapentin 600 mg PO BID 04/20/20 Hospital Course Operations None Procedures None Summary of Care Provided Minutes Spent on Discharge: 40 Hospital Course: Patient is a 35-year-old female with past medical history as outlined was admitted through the ED on 01/17/2021 for acute alcohol withdrawal. She was last seen in May 2020 for acute alcohol withdrawal and says she was sober until 3 weeks prior to admission when started drinking grocery store alcohol and gradually increased intake. Her last drink was 2 hours prior to arrival. Her serum alcohol level was 393 on admission. She was admitted and managed for acute alcohol withdrawal and started on alcohol withdrawal protocol with phenobarbital. She was also put on thiamine and folate as well as Multivite. She was started on alcohol withdrawal protocol with phenobarbital. Patient tolerated the detox process and had an uneventful stay. She remained stable and was dishcarged home on 01/19/2021 at her request, though she had com pleted only 2 full days of detox. Patient said she felt well and did not think she needed to stay for 3 days. SHe is to follow up with [facility] on outpatient basis for inpatient rehab services. Patient seen and examined. She had no complaints. Review of systems otherwise negative. Labs and vitals reviewed. Home medication reviewed and reconciled. Physical Exam Const alert, oriented x3 and no apparent distress General Appearance: cooperative and comfortable Orientation / Consciousness: awake Exam Limitations: no limitations HEENT normocephalic, head/scalp atraumatic, moist oral mucous membranes and oropharynx normal Eyes PERRL, EOMs intact bilaterally and conjunctivae normal Neck no lymphadenopathy and supple Resp normal respiratory effort, no retractions, no use of accessory muscles and clear to auscultation bilaterally Cardio regular rate, regular rhythm, S1 normal heart sound, S2 normal heart sound and no murmurs GI normal to inspection, nondistended, normoactive bowel sounds, soft to palpation, non-tender and non-distended Extremity normal to inspection, full ROM and no clubbing, cyanosis or edema Skin no rashes or lesions noted Neuro oriented x3, CN's II-XII intact bilaterally and moves all extremities Sensorium / Orientation: awake and alert Psych affect normal Weight / BMI Weight Weight: 177 lb 11.081 oz Body Mass Index (BMI) 31.4 ABG / Lab / Microbiology Data Result Diagrams: 01/16/21 23:35 01/16/21 23:35 D/C Instructions Discharge Diet: No restrictions Discharge Activity: Return to Normal Activity Weight Bearing Status: Weight bearing as tolerated Call your doctor if you observe: Fever of 101 or Higher, Shortness of breath, Dizziness, Swelling in the ankles and Increased palpitations (irregular heartbeat) Meaningful Use Info Meaningful Use Diagnoses (Choose all that apply): None applicable Discharge Plan Admission Admit Date/Time: 01/17/21 00:38 Primary Reason for Your Visit: Acute alcohol withdrawal Attending Provider: Balbina Packer Primary Care Provider: Care Physician,No Primary Discharge Orders/Prescriptions Prescriptions: Continued Gabapentin 600 MG tablet 600 mg PO BID RF: 0 Referrals / Follow Up: Care Physician,No Primary [Primary Care Provider] - Disposition Disposition (needs filled in before D/C Order can be placed): Home, Self Care Charges/Coding Visit Charges Inpatient E&M: 07376 Disch Hosp
== END 2021-01-19 11:00 | disposition home or self-care (01) | DRG 775 ==
LOC: ED 01-17 03:31 → MS2 01-17 03:31
PROVIDERS: Emergency Provider Emergency Medicine; Visit Provider Student in an Organized Health Care Education/Training Program
DX: F10.239 Alcohol dependence with withdrawal, unspecified (principal); Y90.8 Blood alcohol level of 240 mg/100 ml or more; E87.6 Hypokalemia; R74.8 Abnormal levels of other serum enzymes; F17.210 Nicotine dependence, cigarettes, uncomplicated; F10.229 Alcohol dependence with intoxication, unspecified; F32.A Depression, unspecified; F41.9 Anxiety disorder, unspecified; Z88.0 Allergy status to penicillin
CPT/HCPCS: 80053; 80307; 82077; 84703; 85025; 99283; 99406

== ENCOUNTER 2021-02-09 15:14 | Emergency (ER) | payer MEDICAID, SELFPAY ==
[2021-02-09 15:15] VITALS: BP 150/103; PULSE 125; RESP 16; TEMP 36.6; O2SAT 98; BMI 30.7
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
[2021-02-09 16:05] LABS: Absolute Lymphocyte Count 1.41 X10^3/uL (0.83-4.51); Absolute Neutrophil Count 6.4 X10^3/uL (2.0-7.7); Basophil# 0.04 X10^3/uL; Basophil% 0.5 % (0-1); Eosinophil# 0.01 X10^3/uL; Eosinophils% 0.1 % (0-5); Hematocrit 47.6 % (37-47); Hemoglobin 15.9 g/dL (12.0-15.0); Lymphocyte # 1.41 X10^3/ul (0.83-4.51); Lymphocyte % 16.3 % (19-41); Mean Corp Hgb Conc 33.4 g/dL (32-36); Mean Corpuscular Hgb 31.4 pg (27.0-32.0); Mean Corpuscular Volume 93.9 fL (81-99); Mean Platelet Vol. 8.8 fl (6.2-12.0); Monocyte# 0.74 X10^3/uL; Monocyte% 8.6 % (0-10); NRBC Flagged by Analyzer 0 % (0-5); Neutrophil # 6.41 X10^3/uL (2.7-7.7); Platelet Count 219 K/mm3 (150-450); RBC Distribution Width SD 55.3 fl (35.1-43.9); Red Blood Count 5.07 M/mm3 (4.2-5.4); White Blood Count 8.7 K/mm3 (4.4-11.0)
[2021-02-09 16:27] LABS: Internal QC Validated? YES +Cl - CLEAR BKGD; Pregnancy, Serum, hCG Quali. NEGATIVE Negative
[2021-02-09 16:34] VITALS: BP 132/98; PULSE 119; RESP 16; O2SAT 98
[2021-02-09 16:44] LABS: ALB/GLOB Ratio 0.9 RATIO (0.9-2.4); AST(SGOT) 1208 U/L (15-37); Alanine Aminotransfer ALT/SGPT 555 U/L (13-56); Albumin, Serum 4.1 g/dL (3.2-5.0); Alkaline Phosphatase 197 U/L (45-117); Anion Gap 24 (5-15); BUN 11 mg/dL (7-18); BUN/Creat Ratio 12.2 RATIO (10-20); Calcium,Total 8.9 mg/dL (8.5-10.1); Chloride 96 mmol/L (98-107); EST Glomerular Filtration Rate 75 mL/min (>60); Est Glom Filt Rate - Afr Amer 91 mL/min (>60); Estimated Creatinine Clearance 72.17 ml/min; Globulin 4.8 g/dL (2.2-4.2); Glucose 72 mg/dL (74-106); Protein, Total 8.9 g/dL (6.4-8.2); Sodium Level 136 mmol/L (136-145)
[2021-02-09 16:45] LABS: Amphetamine Urine VISTA NEGATIVE (<1000 ng/mL); Barbiturate Urine VISTA POSITIVE (< 200 ng/mL); Benzodiazepine Urine VISTA NEGATIVE (< 200 ng/mL); Cocaine Urine VISTA NEGATIVE (< 300 ng/mL); Ecstacy Urine VISTA NEGATIVE (< 500 ng/mL); Methadone Urine VISTA NEGATIVE (< 300 ng/mL); PCP Urine VISTA NEGATIVE (< 25 ng/mL); THC Urine VISTA NEGATIVE (< 50 ng/mL); Vista UDS pH Range 5
[2021-02-09] MEDS: Ibuprofen 600 MG Tablet PO (16:59)
[2021-02-09 17:04] LABS: Mucous, Urine 0 SEEN /hpf (<or=2+)
[2021-02-09 17:06] VITALS: BP 132/98; PULSE 119; RESP 16; TEMP 36.6; O2SAT 98
[2021-02-09 17:06] LABS: Color, Urine Yellow (Yellow); Glucose, Dipstick Normal (Normal); Leukocyte Esterase-Dipstick 100 /ul (Negative); Nitrite-Dipstick Negative (Negative); Occult Blood-Urine 250 /ul (Negative); Protein-Dipstick 100 mg/dl (Negative); Specific Gravity, Urine 1.025 (1.002-1.030); Urine Bilirubin Dipstick Negative (Negative); Urine Clarity Sl. Cloudy (Clear); Urine Urobilinogen 1 mg/dl (Normal)
--- NOTE | 2021-02-09 17:19 | ED.RN ---
Pt. came out of room and asked to go out and smoke cigarette. Nurse escorted pt. back to room and said it is against policy for them to leave facility and go outside. Pt. stated what happens if I just walk out? Nurse said you would be an AMA and you can't leave with an IV in. well, then take this IV out. Nurse said. wait here. This nurse informed charge nurse.
--- NOTE | 2021-02-09 17:20 | ED.RN ---
PT STATED SHE WANTS TO GO HAVE A CIGARETTE, EXPLAINED THAT IS NOT ALLOWED. REMINDED PT THAT SHE SIGN ED THE CONTRACT AND IT CLEARLY STATES NO SMOKING. EXPLAINED WE COULD GET HER A NICOTINE PATCH OR GUM. PT STATES THEY DONT HELP AND REFUSED. PT HAD ME REMOVE HER IV AND GOT DRESSED STATING SHE WILL COME BACK ANOTHER TIME. MADE SURE PT IS AWARE OF CONSEQUENCES OF LEAVING AMA AND THE OPTIONS AGAIN TO HELP. PT REFUSED. PT LEFT WITH FAMILY MEMBER
[2021-02-09 17:27] LABS: Ketone-Dipstick 150 mg/dl (Negative)
[2021-02-09 17:35] LABS: Hyaline Cast 0-5 SEEN /lpf (0-5)
[2021-02-09 17:37] LABS: Bacteria 2+ /hpf (None Seen)
[2021-02-09 17:38] LABS: White Blood Cells 5-10 SEEN /hpf (0-5)
[2021-02-09 17:40] LABS: Squamous Epithelial Cells - UA 10-25 SEEN /hpf (5-10)
[2021-02-09 17:42] LABS: Red Blood Cells-Urine 0-5 SEEN /hpf (0-5)
[2021-02-09 17:49] LABS: Trichomonas 0-5 SEEN /hpf (None Seen)
== END 2021-02-09 17:15 | disposition left against medical advice (07) ==
LOC: ED 16:06 → MS3 17:28
PROVIDERS: Emergency Provider Emergency Medicine
DX: F10.129 Alcohol abuse with intoxication, unspecified (principal); F17.210 Nicotine dependence, cigarettes, uncomplicated; K70.10 Alcoholic hepatitis without ascites; S01.81XA Laceration without foreign body of other part of head, initial encounter; Y04.2XXA Assault by strike against or bumped into by another person, initial encounter; Y92.9 Unspecified place or not applicable; Y99.9 Unspecified external cause status
CPT/HCPCS: 80053; 80307; 81001; 82077; 84703; 85025; 85610; 99284; A4216

== ENCOUNTER → 2021-09-17 | Outpatient (CLI) | payer MEDICAID, SELFPAY ==
[2021-09-17 12:49] LABS: Lipase 239 U/L (73-393)
== END | disposition home or self-care (01) ==
LOC: LAB 11:52
PROVIDERS: Visit Provider Family Medicine
DX: K76.9 Liver disease, unspecified (principal)
CPT/HCPCS: 36415; 82140; 83690

== ENCOUNTER 2021-09-21 15:15 | Emergency (ER) | payer MEDICAID, SELFPAY ==
[2021-09-21 15:16] VITALS: BP 105/87; PULSE 109; RESP 16; TEMP 36.4; O2SAT 99; BMI 32.1
--- NOTE | 2021-09-21 15:30 | EDS_ITS ---
HPI <JEVON Marshall - Last Filed: 09/21/21 16:11> History of Present Illness Chief Complaint: Abd Pain Narrative Narrative: 36-year-old female presents with abdominal bloating. She has a history of alcoholic cirrhosis and states she has been sober for 27 days and is staying in a sober house. She has chronic abdominal distention but it seems worse over the last few days. She has discomfort but no real abdominal pain. She has early satiety but no nausea or vomiting. No fever or chills. Reports normal urination and some diarrhea secondary to lactulose she had been taking. She was also on B1 but they told her she could stop. Her jaundice has significantly improved. She does not have a primary care doctor and is scheduled to see a liver specialist in November. She has no other health problems. PFSH <JEVON Marshall - Last Filed: 09/21/21 16:11> PFSH Medical History Alcohol abuse Alcohol abuse Alcohol abuse Alcohol dependence with acute alcoholic intoxication Anxiety and depression History of heroin abuse Smoker Substance abuse Tobacco use Home Medications Gabapentin 600 mg PO BID anxiety 04/20/20 [History Last Taken 01/14/21] Allergy/AdvReac Type Severity Reaction Status Date / Time amoxicillin Allergy Rash Verified 09/21/21 15:19 Penicillins Allergy Rash Verified 09/21/21 15:19 Family History (Updated 01/17/21 @ 00:[address] Sourav Torres, ) Brother , from COVID 19 COVID-19 Other Alcoholism Social History household members: children Smoking Status: Current every day smoker tobacco type: cigarettes alcohol intake: current alcohol intake frequency: 3 or more drinks per day substance use type: does not use ROS <JEVON Marshall - Last Filed: 09/21/21 16:11> ROS ED ROS Narrative Constitutional: Negative for fever, chills, malaise. Eyes: Negative for visual change. ENT: Negative for sore throat, rhinorrhea. CVS: Negative for palpitations, chest pain, syncope. Respiratory: Negative for shortness of breath, cough, orthopnea. GI: Negative for abdominal pain, nausea, vomiting, diarrhea, constipation, melena, hematochezia. : Negative for dysuria, hematuria or frequency. Neuro: Negative for headache, motor/sensory dysfunction. Skin: Negative for rash, abscess, or wound. Musc: Negative for joint pain, swelling, trauma. Heme: Negative for easy bruising, bleeding, lymphadenopathy. EXAM <JEVON Marshall - Last Filed: 09/21/21 16:11> Physical Exam Narrative Exam Narrative: CONST: Patient sitting in no acute distress. EYES: Scleral icterus. ENT: Normal inspection, moist mucous membranes. NECK: Normal inspection. RESP: No respiratory distress, CTAB. CVS: Regular rate and rhythm, no murmur, no gallop. ABD: Firm with abdominal distention, no guarding or rebound, minimal diffuse tenderness, no hepatosplenomegaly. SKIN: Color normal, no rash, warm, dry, intact. EXTREMITIES: Normal appearance, no pedal edema. NEURO: Oriented x4. PSYCH: Normal affect. Const Vital Signs: 09/21/21 15:16 Temperature 97.6 F L Temperature Source Temporal Pulse Rate 109 H Respiratory Rate 16 Blood Pressure 105/87 H Blood Pressure Mean 93 Pulse Ox 99 Oxygen Delivery Method Room Air <Dr. Jose Hamilton MD - Last Filed: 09/21/21 16:03> Physical Exam Const Vital Signs: 09/21/21 15:16 Temperature 97.6 F L Temperature Source Temporal Pulse Rate 109 H Respiratory Rate 16 Blood Pressure 105/87 H Blood Pressure Mean 93 Pulse Ox 99 Oxygen Delivery Method Room Air MDM <JEVON Marshall - Last Filed: 09/21/21 16:11> [facility] MDM Narrative Medical decision making narrative: PA: Patient has abdominal ascites from history of alcoholic cirrhosis. She appears well and nontoxic. Moderate abdominal distention and fluid wave is present. Nontender, nonsurgical abdomen. White count is 14, normal electrolytes and renal function, mildly elevated total bilirubin at 2.2 but significantly improved liver enzymes at 90/39. INR WNL. Overall patient has been improving while being sober and liver enzymes reflect that. With no significant abdominal tenderness no recent procedures I have no concern for acute intra abdominal process. She will be referred to the primary care clinic who can arrange outpatient paracentesis if needed. Patient was discharged in stable condition. Diagnoses 1. Abdominal ascites 2. History of alcoholic cirrhosis I have personally performed a face to face assessment of the patient and have reviewed the GRIS Note. I performed a substantive portion of the visit including all aspects of the following. My kate findings include: History is [36-year-old female that I am evaluated with our PA Has a history of recently diagnosed liver cirrhosis within the last several months from alcohol abuse. Presents today with abdominal fullness. No vomiting. No diarrhea or melena. She has never had ascites and she has never had a paracentesis.] Exam is [36-year-old no acute distress vital signs stable afebrile. H EENT exam unremarkable. Lungs are clear. Heart regular rhythm no murmur. Abdomen soft she does appear to have abdominal ascites. No peritoneal signs. No hernia or mass. No obstruction. Moving all 4 extremities. Trace edema around the ankles. Neurologically she is awake and alert.] Medical Decision Making [patient with cirrhosis that has abdominal ascites. Its not tense. She is afebrile she does not look septic or toxic. Labs show white count of 14. H&H of 13 and 42. Platelet count 348. Gap is normal at 6. Normal BUN and creatinine. Liver enzymes are elevated. Other labs are pending.] Other additions or changes: [Patient with abdominal ascites with history of liver cirrhosis. Most likely patient will be able to be follow-up as an outpatient for potential abdominal paracentesis. She has appointment to see a GI specialist but does not think [place] and is not even sure who her GI doctor is going to be. She thinks it might be her [place]. Currently she has no primary care physician. She will be discharged home with follow-up with her primary care physician with [facility].] Lab Data Attestation: I reviewed the patient's lab results. Labs: Laboratory Results - last 24 hr 09/21/21 09/21/21 09/21/21 15:25 15:25 15:25 WBC 14.3 H RBC 4.02 L Hgb 13.9 Hct 42.2 MCV 105.0 H MCH 34.6 H MCHC 32.9 RDW Std Deviation 54.9 H RDW Coeff of Taylor 14.0 Plt Count 348 MPV 9.2 Immature Gran % (Auto) 1.100 H Neut % (Auto) 72.9 H Lymph % (Auto) 17.9 L Cloud % (Auto) 6.6 Eos % (Auto) 1.3 Baso % (Auto) 0.2 Absolute Neuts (auto) 10.4 H Absolute Lymphs (auto) 2.55 Nucleated RBC % 0 PT 16.5 H INR 1.4 Sodium 140 Potassium 3.6 Chloride 110 H Carbon Dioxide 24.0 Anion Gap 6 BUN 7 Creatinine 0.48 L Estim Creat Clear Calc 134.03 Est GFR (MDRD) Af Amer 187 Est GFR (MDRD) Non-Af 154 BUN/Creatinine Ratio 14.5 Glucose 110 H Calcium 8.3 L Total Bilirubin 2.20 H Direct Bilirubin 1.92 H AST 90 H ALT 39 Alkaline Phosphatase 178 H Total Protein 6.5 Albumin 2.3 L Globulin 4.2 <Dr. Jose Hamilton MD - Last Filed: 09/21/21 16:03> MDM MDM Narrative Medical decision making narrative: I have personally performed a face to face assessment of the patient and have reviewed the GRIS Note. I performed a substantive portion of the visit including all aspects of the following. My kate findings include: History is [36-year-old female that I am evaluated with our PA Has a history of recently diagnosed liver cirrhosis within the last several months from alcohol abuse. Presents today with abdominal fullness. No vomit ing. No diarrhea or melena. She has never had ascites and she has never had a paracentesis.] Exam is [36-year-old no acute distress vital signs stable afebrile. H EENT exam unremarkable. Lungs are clear. Heart regular rhythm no murmur. Abdomen soft she does appear to have abdominal ascites. No peritoneal signs. No hernia or mass. No obstruction. Moving all 4 extremities. Trace edema around the ankles. Neurologically she is awake and alert.] Medical Decision Making [patient with cirrhosis that has abdominal ascites. Its not tense. She is afebrile she does not look septic or toxic. Labs show white count of 14. H&H of 13 and 42. Platelet count 348. Gap is normal at 6. Normal BUN and creatinine. Liver enzymes are elevated. Other labs are pending.] Other additions or changes: [Patient with abdominal ascites with history of liver cirrhosis. Most likely patient will be able to be follow-up as an outpatient for potential abdominal paracentesis. She has appointment to see a GI specialist but does not think [place] and is not even sure who her GI doctor is going to be. She thinks it might be her [place]. Currently she has no primary care physician. She will be discharged home with follow-up with her primary care physician with [facility].] Lab Data Labs: Laboratory Results - last 24 hr 09/21/21 09/21/21 09/21/21 15:25 15:25 15:25 WBC 14.3 H RBC 4.02 L Hgb 13.9 Hct 42.2 MCV 105.0 H MCH 34.6 H MCHC 32.9 RDW Std Deviation 54.9 H RDW Coeff of Taylor 14.0 Plt Count 348 MPV 9.2 Immature Gran % (Auto) 1.100 H Neut % (Auto) 72.9 H Lymph % (Auto) 17.9 L Cloud % (Auto) 6.6 Eos % (Auto) 1.3 Baso % (Auto) 0.2 Absolute Neuts (auto) 10.4 H Absolute Lymphs (auto) 2.55 Nucleated RBC % 0 PT 16.5 H INR 1.4 Sodium 140 Potassium 3.6 Chloride 110 H Carbon Dioxide 24.0 Anion Gap 6 BUN 7 Creatinine 0.48 L Estim Creat Clear Calc 134.03 Est GFR (MDRD) Af Amer 187 Est GFR (MDRD) Non-Af 154 BUN/Creatinine Ratio 14.5 Glucose 110 H Calcium 8.3 L Total Bilirubin 2.20 H Direct Bilirubin 1.92 H AST 90 H ALT 39 Alkaline Phosphatase 178 H Total Protein 6.5 Albumin 2.3 L Globulin 4.2 Discharge Plan Triage Chief Complaint: Abd Pain ED Midlevel Provider: Joselyn Srinivasan ED Provider: Jose Hamilton Dx/Rx/DC Orders Clinical Impression: Abdominal ascites Instructions: ED Ascites Prescriptions: No Action Gabapentin 600 MG tablet 600 mg PO BID Primary Care Provider: Care Physician,No Primary Referrals: Cherie Owens MD [STAFF PHYSICIAN] - (Call for appointment) Care Physician,Stacy Primary [Primary Care Provider] - Activity Restrictions/Additional Instructions: You need to call the PCP clinic to make an appointment. If needed they can help you schedule a paracentesis which is where they drained fluid off of your abdomen. Disposition Disposition: Home, Self Care
[2021-09-21 15:39] LABS: Absolute Lymphocyte Count 2.55 X10^3/uL (0.83-4.51); Absolute Neutrophil Count 10.4 X10^3/uL (2.0-7.7); Basophil# 0.03 X10^3/uL; Basophil% 0.2 % (0-1); Eosinophil# 0.18 X10^3/uL; Eosinophils% 1.3 % (0-5); Hematocrit 42.2 % (37-47); Hemoglobin 13.9 g/dL (12.0-15.0); Lymphocyte # 2.55 X10^3/ul (0.83-4.51); Lymphocyte % 17.9 % (19-41); Mean Corp Hgb Conc 32.9 g/dL (32-36); Mean Corpuscular Hgb 34.6 pg (27.0-32.0); Mean Platelet Vol. 9.2 fl (6.2-12.0); Monocyte# 0.94 X10^3/uL; Monocyte% 6.6 % (0-10); NRBC Flagged by Analyzer 0 % (0-5); Neutrophil # 10.41 X10^3/uL (2.7-7.7); Neutrophil % 72.9 % (47-70); Platelet Count 348 K/mm3 (150-450); RBC Distribution Width SD 54.9 fl (35.1-43.9); Red Blood Count 4.02 M/mm3 (4.2-5.4); White Blood Count 14.3 K/mm3 (4.4-11.0)
[2021-09-21 15:56] LABS: AST(SGOT) 90 U/L (15-37); Alanine Aminotransfer ALT/SGPT 39 U/L (13-56); Albumin, Serum 2.3 g/dL (3.2-5.0); Alkaline Phosphatase 178 U/L (45-117); Anion Gap 6 (5-15); BUN 7 mg/dL (7-18); BUN/Creat Ratio 14.5 RATIO (10-20); Bilirubin, Direct 1.92 mg/dL (0.00-0.30); Calcium,Total 8.3 mg/dL (8.5-10.1); Chloride 110 mmol/L (98-107); Creatinine, Serum 0.48 mg/dL (0.55-1.02); EST Glomerular Filtration Rate 154 mL/min (>60); Est Glom Filt Rate - Afr Amer 187 mL/min (>60); Estimated Creatinine Clearance 134.03 ml/min; Globulin 4.2 g/dL (2.2-4.2); Glucose 110 mg/dL (74-106); Potassium 3.6 mmol/L (3.5-5.1); Protein, Total 6.5 g/dL (6.4-8.2); Sodium Level 140 mmol/L (136-145)
[2021-09-21 15:59] LABS: International Normalized Ratio 1.4; Prothrombin Time (Protime)PT. 16.5 SECONDS (11.7-14.9)
[2021-09-21 16:15] VITALS: BP 118/78; PULSE 66; RESP 14; TEMP 37.2; O2SAT 99
== END 2021-09-21 16:26 | disposition home or self-care (01) ==
LOC: ED 16:15
PROVIDERS: Physician Assistant; Emergency Provider Emergency Medicine; Visit Provider Emergency Medicine
DX: K70.31 Alcoholic cirrhosis of liver with ascites (principal); F10.10 Alcohol abuse, uncomplicated; F41.9 Anxiety disorder, unspecified; F32.A Depression, unspecified; F17.210 Nicotine dependence, cigarettes, uncomplicated; Z87.898 Personal history of other specified conditions; Z79.899 Other long term (current) drug therapy
CPT/HCPCS: 80048; 80076; 85025; 85610; 99283; A4216

== ENCOUNTER → 2021-09-30 | Outpatient (CLI) | payer MEDICAID, SELFPAY ==
[2021-09-30 12:15] LABS: Absolute Lymphocyte Count 1.69 X10^3/uL (0.83-4.51); Basophil# 0.03 X10^3/uL; Basophil% 0.4 % (0-1); Eosinophil# 0.12 X10^3/uL; Eosinophils% 1.4 % (0-5); Hematocrit 39.1 % (37-47); Hemoglobin 12.7 g/dL (12.0-15.0); Lymphocyte # 1.69 X10^3/ul (0.83-4.51); Lymphocyte % 19.9 % (19-41); Mean Corp Hgb Conc 32.5 g/dL (32-36); Mean Corpuscular Hgb 33.1 pg (27.0-32.0); Mean Corpuscular Volume 101.8 fL (81-99); Mean Platelet Vol. 9.3 fl (6.2-12.0); Monocyte# 0.57 X10^3/uL; Monocyte% 6.7 % (0-10); NRBC Flagged by Analyzer 0 % (0-5); Neutrophil # 6.02 X10^3/uL (2.7-7.7); Platelet Count 320 K/mm3 (150-450); RBC Distribution Width SD 52.6 fl (35.1-43.9); Red Blood Count 3.84 M/mm3 (4.2-5.4); White Blood Count 8.5 K/mm3 (4.4-11.0)
[2021-09-30 12:44] LABS: ALB/GLOB Ratio 0.6 RATIO (0.9-2.4); AST(SGOT) 77 U/L (15-37); Alanine Aminotransfer ALT/SGPT 29 U/L (13-56); Albumin, Serum 2.5 g/dL (3.2-5.0); Alkaline Phosphatase 155 U/L (45-117); Anion Gap 8 (5-15); BUN 8 mg/dL (7-18); BUN/Creat Ratio 16.9 RATIO (10-20); Calcium,Total 8.7 mg/dL (8.5-10.1); Chloride 107 mmol/L (98-107); Creatinine, Serum 0.47 mg/dL (0.55-1.02); EST Glomerular Filtration Rate 157 mL/min (>60); Est Glom Filt Rate - Afr Amer 191 mL/min (>60); Globulin 4.4 g/dL (2.2-4.2); Glucose 110 mg/dL (74-106); Potassium 3.8 mmol/L (3.5-5.1); Protein, Total 6.9 g/dL (6.4-8.2); Sodium Level 140 mmol/L (136-145)
== END | disposition home or self-care (01) ==
LOC: BIMLAB 10:02
PROVIDERS: PCP Internal Medicine; Referring Provider Internal Medicine; Visit Provider Internal Medicine
DX: E83.39 Other disorders of phosphorus metabolism (principal)
CPT/HCPCS: 36415; 80053; 84100; 85025

== ENCOUNTER 2021-11-17 13:17 | Emergency (ER) | payer MEDICAID, SELFPAY ==
[2021-11-17 13:19] VITALS: BP 129/87; PULSE 105; RESP 18; O2SAT 95
[2021-11-17 13:20] VITALS: BP 135/92; PULSE 115; RESP 18; TEMP 36.8; O2SAT 98; BMI 29.9
[2021-11-17 14:38] LABS: Absolute Lymphocyte Count 3.64 X10^3/uL (0.83-4.51); Basophil# 0.03 X10^3/uL; Basophil% 0.3 % (0-1); Eosinophil# 0.02 X10^3/uL; Eosinophils% 0.2 % (0-5); Hematocrit 40.6 % (37-47); Hemoglobin 13.7 g/dL (12.0-15.0); Lymphocyte # 3.64 X10^3/ul (0.83-4.51); Lymphocyte % 39.7 % (19-41); Mean Corp Hgb Conc 33.7 g/dL (32-36); Mean Corpuscular Hgb 29.1 pg (27.0-32.0); Mean Corpuscular Volume 86.4 fL (81-99); Mean Platelet Vol. 8.4 fl (6.2-12.0); Monocyte% 5.4 % (0-10); NRBC Flagged by Analyzer 0 % (0-5); Neutrophil # 4.98 X10^3/uL (2.7-7.7); Neutrophil % 54.3 % (47-70); Platelet Count 217 K/mm3 (150-450); RBC Distribution Width CV 14.1 % (11.6-14.6); RBC Distribution Width SD 44.2 fl (35.1-43.9); White Blood Count 9.2 K/mm3 (4.4-11.0)
[2021-11-17 14:45] LABS: Mucous, Urine 0 SEEN /hpf (<or=2+); Red Blood Cells-Urine 0 SEEN /hpf (0-5)
[2021-11-17 14:47] LABS: Color, Urine Yellow (Yellow); Glucose, Dipstick Normal (Normal); Ketone-Dipstick 5 mg/dl (Negative); Leukocyte Esterase-Dipstick Negative /ul (Negative); Nitrite-Dipstick Negative (Negative); Occult Blood-Urine Negative /ul (Negative); Protein-Dipstick 30 mg/dl (Negative); Urine Bilirubin Dipstick Negative (Negative); Urine Clarity Clear (Clear); Urine Urobilinogen Normal (Normal)
[2021-11-17 14:53] LABS: AST(SGOT) 70 U/L (15-37); Alanine Aminotransfer ALT/SGPT 39 U/L (13-56); Albumin, Serum 4.2 g/dL (3.2-5.0); Alkaline Phosphatase 117 U/L (45-117); Anion Gap 15 (5-15); BUN 5 mg/dL (7-18); BUN/Creat Ratio 7.9 RATIO (10-20); Calcium,Total 8.8 mg/dL (8.5-10.1); Chloride 101 mmol/L (98-107); Creatinine, Serum 0.63 mg/dL (0.55-1.02); EST Glomerular Filtration Rate 114 mL/min (>60); Est Glom Filt Rate - Afr Amer 137 mL/min (>60); Estimated Creatinine Clearance 102.12 ml/min; Globulin 4.2 g/dL (2.2-4.2); Glucose 106 mg/dL (74-106); Potassium 3.1 mmol/L (3.5-5.1); Protein, Total 8.4 g/dL (6.4-8.2); Sodium Level 141 mmol/L (136-145)
[2021-11-17 14:55] LABS: hCG Titer Quant., Serum < 1 mIU/mL (1-3)
[2021-11-17 14:56] LABS: Bacteria 1+ /hpf (None Seen); Squamous Epithelial Cells - UA 0-5 SEEN /hpf (5-10); White Blood Cells 0-5 SEEN /hpf (0-5)
--- NOTE | 2021-11-17 15:25 | EDS_ITS ---
HPI History of Present Illness Chief Complaint: Substance Abuse Informant: patient Onset/Context/Timing Onset: Weeks Context: Gradual Onset Timing: Continuous Current Severity: Moderate Associated Symptoms Associated Symptoms: None Narrative Narrative: Patient presents for alcohol detox. Her last drink was earlier today. She drinks about a pint of liquor per day. She was previously admitted at [facility] but left about a month ago because she said some of the patients were using substances. She was diagnosed about a week and a half ago and is . She said she was having some vaginal spotting as well. She is Rh-. She also was diagnosed about a week ago with COVID-19. Symptoms started about 10 days ago but have since resolved. Patient has no other complaints. Nothing seems to make this better or worse. PFSH PFSH Medical History ADHD Alcohol abuse Alcohol dependence with acute alcoholic intoxication Anxiety and depression History of heroin abuse Smoker Substance abuse Tobacco use Home Medications furosemide 40 mg tablet 40 tablet PO DAILY 09/30/21 [History Last Taken Unknown] thiamine HCl (vitamin B1) 50 mg tablet 50 mg PO DAILY 09/30/21 [History Last Taken Unknown] Allergy/AdvReac Type Severity Reaction Status Date / Time amoxicillin Allergy Rash Verified 09/30/21 09:08 Penicillins Allergy Rash Verified 09/30/21 09:08 Family History Brother , from COVID 19 COVID-19 Grandfather Lung cancer Mother Alcoholism Surgical History History of tonsillectomy and adenoidectomy Social History household members: children current occupational status: unemployed Smoking Status: Current every day smoker tobacco type: cigarettes Electronic Cigarette Use: not used alcohol intake: former details: former smoker, 33 days sober as of 09/30/21 substance use type: former substance user Date of last use: 2017 and opiates what type of physical activity do you participate in: yoga frequency: 3-4 times per week do you feel safe at home: Yes ROS ROS ED Constitutional Constitutional ED: Denies chills Eyes Eyes: Denies blurry vision ENT ENT ED: Denies ear pain Cardiovascular Cardiovascular: Denies chest pain Respiratory/Chest Respiratory/Chest: Denies cough Gastrointestinal Gastrointestinal: Denies abdominal pain Genitourinary Genitourinary ED: Denies dysuria Musculoskeletal Musculoskeletal: Denies arthralgias Integumentary Denies abscess Neurologic Neurologic: Denies headache(s) Psychiatric Psychiatric: Denies anxiety, depression, suicidal ideation or suicidal thoughts Endocrine Endocrinology: Denies cold intolerance Hematologic/Lymphatic Hematologic/Lymphatic: Denies easy bruising Allergic/Immunologic Allergic/Immunologic ED: Denies mouth swelling EXAM Physical Exam Const Vital Signs: 11/17/21 13:20 11/17/21 13:19 Temperature 98.2 F Temperature Source Oral Pulse Rate 115 H 105 H Respiratory Rate 18 18 Blood Pressure 135/92 H 129/87 H Blood Pressure Mean 106 101 Pulse Ox 98 95 Oxygen Delivery Method Room Air Room Air Positive well nourished and well developed General Appearance ED: well developed HEENT Reports moist mucous membranes Eyes EOMs intact bilaterally Resp normal respiratory effort and clear to auscultation bilaterally Cardio regular rate and regular rhythm GI normal to inspection, nondistended, normoactive bowel sounds, non-tender and non-distended Extremity normal to inspection Psych mental status grossly normal Skin no rashes or lesions noted MDM MDM MDM Narrative Medical decision making narrative: Patient believes she is in first trimester . She had a positive test and said she had some vaginal spotting and is Rh-. I did order her quant and RhoGAM however the patient's quant was less than 1. I am not convinced she was truly . And we will discontinue the RhoGAM order. Her COVID test was negative. She is not having symptoms currently. No evidence of complications. Patient drank earlier today. I do not believe she is withdrawing currently. She is not suicidal or requiring involuntary hospitalization. Labs were all fairly reassuring. Patient did not want admission here. Did not want to go to [place]. Would like to go to a facility in [place]. I did call initially but they did not accept patients. Since she is not , they will see her on a walk-in basis. Patient would like to follow-up there and will be discharged. Impression #1 alcohol withdrawal Lab Data Attestation: I reviewed the patient's lab results. Labs: Laboratory Results - last 24 hr 11/17/21 11/17/21 11/17/21 14:20 14:20 14:20 WBC 9.2 RBC 4.70 Hgb 13.7 Hct 40.6 MCV 86.4 MCH 29.1 MCHC 33.7 RDW Std Deviation 44.2 H RDW Coeff of Taylor 14.1 Plt Count 217 MPV 8.4 Immature Gran % (Auto) 0.100 Neut % (Auto) 54.3 Lymph % (Auto) 39.7 [place] % (Auto) 5.4 Eos % (Auto) 0.2 Baso % (Auto) 0.3 Absolute Neuts (auto) 5.0 Absolute Lymphs (auto) 3.64 Nucleated RBC % 0 Sodium 141 Potassium 3.1 L Chloride 101 Carbon Dioxide 25.0 Anion Gap 15 BUN 5 L Creatinine 0.63 Estim Creat Clear Calc 102.12 Est GFR (MDRD) Af Amer 137 Est GFR (MDRD) Non-Af 114 BUN/Creatinine Ratio 7.9 L Glucose 106 Calcium 8.8 Total Bilirubin 1.00 AST 70 H ALT 39 Alkaline Phosphatase 117 Total Protein 8.4 H Albumin 4.2 Globulin 4.2 Albumin/Globulin Ratio 1.0 HCG, Quant < 1 Urine Color Urine Clarity Urine pH Ur Specific [place] Urine Protein Urine Glucose (UA) Urine Ketones Urine Occult Blood Urine Nitrite Urine Bilirubin Urine Urobilinogen Ur Leukocyte Esterase Urine RBC Urine WBC Ur Squamous Epith Cells Urine Bacteria Urine Mucus Blood Type 11/17/21 11/17/21 14:20 14:25 WBC RBC Hgb Hct MCV MCH MCHC RDW Std Deviation RDW Coeff of Taylor Plt Count MPV Immature Gran % (Auto) Neut % (Auto) Lymph % (Auto) [place] % (Auto) Eos % (Auto) Baso % (Auto) Absolute Neuts (auto) Absolute Lymphs (auto) Nucleated RBC % Sodium Potassium Chloride Carbon Dioxide Anion Gap BUN Creatinine Estim Creat Clear Calc Est GFR (MDRD) Af Amer Est GFR (MDRD) Non-Af BUN/Creatinine Ratio Glucose Calcium Total Bilirubin AST ALT Alkaline Phosphatase Total Protein Albumin Globulin Albumin/Globulin Ratio HCG, Quant Urine Color Yellow Urine Clarity Clear Urine pH 6.0 Ur Specific [place] 1.010 Urine Protein 30 H Urine Glucose (UA) Normal Urine Ketones 5 H Urine Occult Blood Negative Urine Nitrite Negative Urine Bilirubin Negative Urine Urobilinogen Normal Ur Leukocyte Esterase Negative Urine RBC 0 SEEN Urine WBC 0-5 SEEN Ur Squamous Epith Cells 0-5 SEEN Urine Bacteria 1+ Urine Mucus 0 SEEN Blood Type A NEGATIVE Discharge Plan Triage Chief Complaint: Substance Abuse ED Provider: Jeovany,Nicholas Dx/Rx/DC Orders Instructions: ED Alcohol Abuse Prescriptions: No Action furosemide 40 mg tablet 40 tablet PO DAILY thiamine HCl (vitamin B1) 50 mg tablet 50 mg PO DAILY Primary Care Provider: Care Physician,No Primary Referrals: Irasema Herrera DO [Med Staff - [facility] [employer]] - Disposition Disposition: Home, Self Care
[2021-11-17] MEDS: LORazepam 0.5 MG Tablet PO (15:52)
== END 2021-11-17 16:35 | disposition home or self-care (01) ==
PROVIDERS: Emergency Provider Emergency Medicine; Visit Provider Emergency Medicine
DX: O99.311 Alcohol use complicating pregnancy, first trimester (principal); O99.331 Smoking (tobacco) complicating pregnancy, first trimester; O09.511 Supervision of elderly primigravida, first trimester; O26.851 Spotting complicating pregnancy, first trimester; Z20.822 Contact with and (suspected) exposure to COVID-19; F17.210 Nicotine dependence, cigarettes, uncomplicated; F10.10 Alcohol abuse, uncomplicated
CPT/HCPCS: 80053; 81001; 84702; 85025; 86900; 86901; 87811; 99284; J2790